=== PATIENT | female | born 1930 | race Caucasian/White ===

== ENCOUNTER → 2017-02-02 | Outpatient (CLI) | payer MEDICARE, BC ==
[~2017-02-02] MED LIST: ATOR20TA38 PO; BUS5 GTB; CARV3.1260 GTB; FURO20TA3 PO; GABA100C GTB; LANT3I SC; LISI2.5T59 PO; MEMA5TAB PO; MIRT7.5T8 GTB; MULT9LIQ4 GTB; NOV SC; QUET100T32 PO; SYN75 GTB; VENL75CA89 GTB
--- NOTE | 2017-02-03 10:27 | RADRPT ---
PROCEDURE: CT brain without contrast CLINICAL INDICATION: Head trauma/headaches TECHNIQUE: CT of the brain without contrast performed on a multidetector CT scanner, with multiplan ar reformats. One or more of the following dose reduction techniques were used: Automated exposure control, adjustment in mA and / or kV according to patient size, use of iterative reconstructive karis hnique. CTDIvol = 44 mGy; DLP = 630 mGy-cm. COMPARISON: 03/26/2016 FINDINGS: No acute intracranial hemorrhage is identified. No extra-axial fluid collection is seen. There is no mass effect. No midline shift is identified. Ventricles and sulci are mild to moderately enlarged compatible with volume loss. A chronic lacunar infarct is identified in the deep left frontal region. There are mild areas of hy podensity in the periventricular - deep white matter which are nonspecific but suggestive of chronic small vessel ischemic changes. Velasquez-white differentiation is preserved. Atherosclerotic calcifications of the intracranial internal carotid arteries are noted. Calvarium and skull base are unremarkable. Noted is right periorbital soft tissue swelling. Visual ized right maxillary sinus is opacified. IMPRESSION: 1. No evidence of acute intracranial pathology. 2. Mild to moderate volume loss, with mild chronic small vessel ischemic changes. 3. Chronic left frontal lacunar infarct. 4. Right periorbital soft tissue swelling and right maxillary sinus opacification. See separate orb it and sinus CTs for further details. RPTAT: AA .Cam Mayorga MD, MD Date Time Electronically viewed and signed by .Cam Mayorga MD, MD on 02/03/2017 10:26 .O/
--- NOTE | 2017-02-03 10:30 | RADRPT ---
PROCEDURE: CT orbits without contrast CLINICAL INDICATION: Head trauma, headaches, periorbital swelling TECHNIQUE: CT of the orbits without contrast was performed on a multidetector CT scanner, with mult iplanar reformats. One or more of the following dose reduction techniques were used: Automated expo sure control, adjustment in mA and / or kV according to patient size, use of iterative reconstructiv e technique. CTDIvol = 29 mGy and DLP = 236 mGy-cm. COMPARISON: None available. FINDINGS: There is right periorbital soft tissue swelling. No underlying fracture or injury of the orbital st ructures is identified. There is no retrobulbar hemorrhage. Globes are symmetric with intraocular replacement lenses noted. The remainder of the orbital structures are unremarkable bilaterally. Vi sualized osseous structures are intact. A large right maxillary sinus mucous retention cyst and mil d bilateral ethmoid air cell mucosal thickening are seen. IMPRESSION: 1. Right periorbital soft tissue swelling, without underlying fracture or orbital injury identified . 2. Paranasal sinus disease. See separate sinus CT report for further details. RPTAT: AA .Cam Mayorga MD, MD Date Time Electronically viewed and signed by .Cam Mayorga MD, on 02/03/2017 10:29 .O/
--- NOTE | 2017-02-03 10:36 | RADRPT ---
PROCEDURE: CT sinuses without contrast CLINICAL INDICATION: Head trauma, headaches TECHNIQUE: CT of the paranasal sinuses without contrast was performed on a multidetector CT scanner , with multiplanar reformats. One or more of the following dose reduction techniques were used: Aut omated exposure control, adjustment in mA and / or kV according to patient size, use of iterative re constructive technique. CTDIvol = 23 mGy and DLP = 310 mGy-cm. COMPARISON: None available. FINDINGS: There is a large right maxillary sinus mucous retention cyst. There are mild areas of mucosal thick ening in the left maxillary sinus. There is mild mucosal thickening in the bilateral ethmoid air ce lls primarily anteriorly. The rest of the paranasal sinuses are clear. No paranasal sinus air-flui d level is identified. Ostiomeatal complexes, frontal recesses and sphenoethmoidal recesses appear patent. There is mild leftward nasal septal deviation. Nasal cavity is clear. Noted is partial pa radoxical curvature of the middle turbinates. No dehiscence is identified. Right cribriform plate and ethmoid roof are noted to be lower on the right. Bilateral agger nasi cells are seen. Again de monstrated is right periorbital soft tissue swelling. IMPRESSION: 1. Large right maxillary sinus mucous retention cyst, mild left maxillary sinus mucosal thickening and mild bilateral ethmoid air cell mucosal thickening. 2. Patent ostiomeatal complexes. 3. Mild leftward nasal septal deviation. 4. Right periorbital soft tissue swelling. See separate orbit CT for further details. RPTAT: AA .Cam Mayorga MD, MD Date Time Electronically viewed and signed by .Cam Mayorga MD, MD on 02/03/2017 10:35 .O/
== END | disposition home or self-care (01) ==
LOC: C/S 17:33
PROVIDERS: ATTEND Internal Medicine
DX: S09.90XA Unspecified injury of head, initial encounter (principal); X58.XXXA Exposure to other specified factors, initial encounter; R51 Headache
CPT/HCPCS: 70450; 70480; 70486

== ENCOUNTER 2017-04-08 20:48 | Inpatient (IN) | payer MEDICARE, BC ==
[~2017-04-08] VITALS: Ht 160 cm; Wt 77.1 kg
--- NOTE | 2017-04-08 21:23 | ERA ---
ER Documentation Chief Complaint Date/Time DATE: 04/08/17 TIME: 21:22 Chief Complaint biba from home due to weakness/lethargy just finished atb for uti HPI History is limited due to the patient's cognitive impairment and is provided primarily from her daughter. 86-year-old female with a history of dementia, diabetes mellitus type 2, congestive heart failure, dysphagia with G-tube in place, anxiety, depression, recurrent urinary tract infections and dehydration presents to the emergency department via rescue ambulance for evaluation of weakness. Patient was treated with oral antibiotics 1 week ago for urinary tract infection by her PMD , Dr. Handy. Daughter reports a 1 day history of increasing lethargy and generalized weakness. Patient denies chest pain, shortness of breath or palpitations. No abdominal pain, nausea or vomiting. No dysuria, hematuria or flank pain. No fevers or chills. ROS All systems reviewed and are negative except as per history of present illness. Medications Home Meds Reported Medications Atorvastatin Calcium* (Atorvastatin Calcium*) 20 Mg Tablet, 20 MG PO QHS, #30 TAB 07/19/16 Quetiapine Fumarate* (Quetiapine Fumarate*) 100 Mg Tablet, 100 MG PO HS, TAB 07/19/16 Lisinopril* (Lisinopril*) 2.5 Mg Tablet, 2.5 MG PO DAILY, #30 TAB 07/19/16 Furosemide* (Furosemide*) 20 Mg Tablet, 20 MG PO DAILY, #60 TAB 07/19/16 Memantine* (Namenda*) Unknown Strength Tablet, PO DAILY, #30 TAB 03/26/16 Mirtazapine* (Mirtazapine*) 7.5 Mg Tablet, 7.5 MG GTB BID, TAB 03/26/16 Insulin Glargine* (Lantus*) 100 Unit/Ml Soln, 6 UNITS SC QHS Y for ELEVATED GLUCOSE, #1 VIAL 03/26/16 Insulin Aspart* (Novolog Insulin Vial*) 100 U/Ml Vial, 0 SC SLIDING SCALE AC, VIAL 09/22/15 Carvedilol* (Carvedilol*) 3.125 Mg Tablet, 3.125 MG GTB BID, TAB 09/22/15 Buspirone Hcl* (Buspar*) 5 Mg Tab, 5 MG GTB BID, TAB 09/22/15 Multivit &Minerals/Ferrous Fum (MULTIVITAMIN LIQUID) 9 Mg/15 Ml Liquid, 30 ML GTB DAILY 06/13/15 Venlafaxine Hcl* (Venlafaxine Hcl ER*) 75 Mg Cap.er.24h, 75 MG GTB BID, CAP 06/13/15 Levothyroxine Sodium* (Synthroid*) 75 Mcg Tablet, 75 MCG GTB DAILY, TAB 05/01/15 Gabapentin* (Neurontin*) 100 Mg Capsule, 100 MG GTB TID, CAP 05/01/15 Allergies Allergies: Coded Allergies: No Known Drug Allergies (Verified Allergy, Mild, 07/19/16) PMhx/Soc Reviewed in chart. As per HPI Anesthesia Reaction: No (UNKNOWN) Hx Neurological Disorder: No (dementia) Hx Respiratory Disorders: No Hx Cardiac Disorders: Yes (CHF, HEART MURMUR) Hx Psychiatric Problems: Yes (DEPRESSION , ANXIETY) Hx Miscellaneous Medical Probl: No Hx Alcohol Use: Yes (SOCIAL) Hx Substance Use: No Hx Tobacco Use: Yes Smoking Status: Current every day smoker FmHx Reviewed in chart. Not relevant to presenting complaint Physical Exam Vitals Vital Signs Date Time Temp Pulse Resp B/P Pulse Ox O2 Delivery O2 Flow Rate FiO2 04/08/17 21:42 Nasal Cannula 04/08/17 20:53 98.0 89 20 122/62 96 Physical Exam Const: Alert, elderly Head: Atraumatic Eyes: Normal Conjunctiva ENT: Normal External Ears, Nose and Mouth. Neck: Full range of motion. No JVD. No meningismus. Resp: Breath sounds are equal and clear to auscultation bilaterally Cardio: Regular rate and rhythm, no murmurs Abd: Soft, non tender, non distended. Normal bowel sounds Skin: No petechiae or rashes Back: No midline or flank tenderness Ext: No cyanosis, or edema Neur: Awake and alert, confused. No facial droop. Moves all extremities with 5/5 strength. Psych: Does not appear anxious or depressed. Result Diagram: 04/08/17212904/08/172129 Results 24 hrs Laboratory Tests Test 04/08/17 21:30 White Blood Count 8.910^3/ul Red Blood Count 3.2710^6/ul Hemoglobin 10.3g/dl Hematocrit 30.4% Mean Corpuscular Volume 93.0fl Mean Corpuscular Hemoglobin 31.5pg Mean Corpuscular Hemoglobin Concent 33.9g/dl Red Cell Distribution Width 13.9% Platelet Count 37197^3/UL Mean Platelet Volume 11.6fl Neutrophils % 70.6% Lymphocytes % 18.3% Monocytes % 7.2% Eosinophils % 2.8% Basophils % 0.6% Nucleated Red Blood Cells % 0.0/100WBC Neutrophils # 6.310^3/ul Lymphocytes # 1.610^3/ul Monocytes # 0.610^3/ul Eosinophils # 0.310^3/ul Basophils # 0.110^3/ul Nucleated Red Blood Cells # 0.010^3/ul Urine Color YELLOW Urine Clarity SLIGHTLY CLOUDY Urine pH 5.0 Urine Specific [place] 1.018 Urine Ketones NEGATIVEmg/dL Urine Nitrite NEGATIVEmg/dL Urine Bilirubin NEGATIVEmg/dL Urine Urobilinogen NEGATIVEmg/dL Urine Leukocyte Esterase NEGATIVELeu/ul Urine Microscopic RBC 0/HPF Urine Microscopic WBC 0/HPF Urine Hemoglobin NEGATIVEmg/dL Urine Glucose 1+mg/dL Urine Total Protein 1+mg/dl Sodium Level 142mmol/L Potassium Level 4.1mmol/L Chloride Level 103mmol/L Carbon Dioxide Level 21mmol/L Anion Gap 22 Blood Urea Nitrogen 33mg/dl Creatinine 1.13mg/dl Glucose Level 289mg/dl Lactic Acid Level 2.8mmol/L Calcium Level 9.8mg/dl Total Bilirubin 0.0mg/dl Direct Bilirubin 0.00mg/dl Indirect Bilirubin 0.0mg/dl Aspartate Amino Transf (AST/SGOT) 21IU/L Alanine Aminotransferase (ALT/SGPT) 24IU/L Alkaline Phosphatase 104IU/L Troponin I < 0.012ng/ml Total Protein 8.0g/dl Albumin 4.5g/dl Globulin 3.50g/dl Albumin/Globulin Ratio 1.28 Current Medications Medications (Trade) Dose Ordered Sig/Marck Route PRN Reason Start Time Stop Time Status Last Admin Dose Admin Cefepime HCl (Maxipime 2gm/50 ml (Pmx)) 50 ml @ 100 mls/hr ONCE STAT IVPB 04/08/17 22:14 04/08/17 22:43 DC 04/08/17 22:28 EKG: TIME: 21:00. Sinus rhythm with CA interval of 218 ms consistent with first -degree AV block. Ventricular rate 93. Poor R-wave progression in V1 through V6. No acute ST segment elevation or depression. Left axis deviation. EP Interpretation: Abnormal EKG. IMAGING: PROCEDURE: XR Chest. CLINICAL INDICATION: Sepsis TECHNIQUE: Anterior chest x-ray. COMPARISON: 07/23/2016 FINDINGS: The lung volumes are low. There is pulmonary vascular congestion. There is consolidation in the left lung base with obscured left hemidiaphragm, increased from previous exam.. The right lung is clear. No pleural effusion identified. There is no evidence of pneumothorax. The heart size is large. There is atherosclerotic calcification of the aorta. The cardiomediastinal silhouette is otherwise unremarkable. The soft tissues are normal. Osseous structures are unremarkable. IMPRESSION: 1. Retrocardiac atelectasis versus infiltrate, increased from previous exam. Given the chronic nature of this finding, CT chest is suggested to exclude underlying mass. 2. Cardiomegaly. 3. Atherosclerotic calcification of the aorta. 4. Pulmonary vascular congestion, new compared to previous exam. RPTAT: HLDM .Rob Pruett MD, MD Date Time Electronically viewed and signed by .Rob Pruett MD, MD on 04/08/2017 22: 43 .M/ Procedures/MDM DOCUMENTS REVIEWED: ED nurse, prior ED, prior MEDICAL DECISION MAKIN-year-old female with a history of dementia, diabetes mellitus type 2, congestive heart failure, dysphagia with G-tube in place, anxiety, depression, recurrent urinary tract infections and dehydration presents to the emergency department via rescue ambulance for evaluation of weakness. Mild diabetic hyperglycemia without evidence of DKA. Worsening renal function with chest x-ray findings of pulmonary vascular congestion. Left lower lobe atelectasis versus infiltrate which was present 07/2016. Possible recurrent pneumonia versus mass a CT will be necessary to further elucidate this process but is not emergent. Urinalysis unremarkable but patient has already been on antibiotics. Antibiotics given pending cultures. No criteria for systemic inflammatory response syndrome. Mildly elevated lactate of uncertain clinical significance. No headache, focal neurologic deficit or indication for neuroimaging. Thyroid function tests will be ordered. Admit to [facility] for further evaluation and management. Counseled patient and family regarding diagnosis, diagnostic results and plan for admission. CALLS/CONSULTS: Time 22:35, Dr. Maryjo Diaz for Dr Handy, Recommends admission to [facility]. PATIENT CARE TRANSITIONED: Time: 23:05, Dr. Handy. Departure Diagnosis: Primary Impression: Generalized weakness Additional Impressions: Acute on chronic renal insufficiency Congestive heart failure Qualified Code: I50.9 - Congestive heart failure, unspecified congestive heart failure chronicity, unspecified congestive heart failure type Condition: Serious SARA ALEXANDRA MD Apr 08, 2017 21:23
[2017-04-08 21:41] LABS: ADD SCAN DIFF NO; BASOPHIL # 0.1 10^3/ul (0.0-0.1); BASOPHILS % 0.6 % (0.0-2.0); EOSINOPHILS # 0.3 10^3/ul (0.0-0.5); EOSINOPHILS % 2.8 % (0.0-7.0); HEMATOCRIT 30.4 % (37.0-47.0); HEMOGLOBIN 10.3 g/dl (12.0-16.0); LYMPHOCYTES # 1.6 10^3/ul (0.8-2.9); LYMPHOCYTES % 18.3 % (15.0-51.0); MEAN CORPUSCULAR HEMOGLOBIN 31.5 pg (29.0-33.0); MEAN CORPUSCULAR HGB CONC 33.9 g/dl (32.0-37.0); MEAN PLATELET VOLUME 11.6 fl (7.4-10.4); MONOCYTE # 0.6 10^3/ul (0.3-0.9); MONOCYTES % 7.2 % (0.0-11.0); NEUTROPHIL # 6.3 10^3/ul (1.6-7.5); NEUTROPHILS % 70.6 % (39.0-77.0); PLATELET COUNT 144 10^3/UL (140-415); RED BLOOD COUNT 3.27 10^6/ul (4.20-5.40); RED CELL DISTRIBUTION WIDTH 13.9 % (11.5-14.5); WHITE BLOOD COUNT 8.9 10^3/ul (4.8-10.8)
[2017-04-08 22:02] LABS: ALANINE AMINOTRANSFERASE 24 IU/L (13-69); ALBUMIN 4.5 g/dl (3.3-4.9); ALBUMIN/GLOBULIN RATIO 1.28; ALKALINE PHOSPHATASE 104 IU/L (42-121); ANION GAP 22 (8-16); ASPARTATE AMINO TRANSFERASE 21 IU/L (15-46); BLOOD UREA NITROGEN 33 mg/dl (7-20); CALCIUM 9.8 mg/dl (8.4-10.2); CARBON DIOXIDE 21 mmol/L (21-31); CHLORIDE 103 mmol/L (97-110); CREATININE 1.13 mg/dl (0.44-1.00); GLUCOSE 289 mg/dl (70-220); POTASSIUM 4.1 mmol/L (3.5-5.1); SODIUM 142 mmol/L (135-144)
[2017-04-08] MEDS ORDERED: CEFEPIME 2GM/50 ML (PMX) 50 ML IVPB STA (22:14)
[2017-04-08 22:16] LABS: TROPONIN-I < 0.012 ng/ml (0.00-0.12)
[2017-04-08 22:23] LABS: ADD UMIC YES; UR ASCORBIC ACID NEGATIVE (NEGATIVE); UR BILIRUBIN (Dip) NEGATIVE (NEGATIVE); UR BLOOD (Dip) NEGATIVE (NEGATIVE); UR CLARITY SLIGHTLY CLOUDY (CLEAR); UR COLOR YELLOW (YELLOW); UR GLUCOSE (Dip) 1+ mg/dL (NEGATIVE); UR KETONES (Dip) NEGATIVE (NEGATIVE); UR LEUKOCYTE ESTERASE (Dip) NEGATIVE Leu/ul (NEGATIVE); UR NITRITE (Dip) NEGATIVE (NEGATIVE); UR RBC 0 /HPF (0-5); UR SPECIFIC GRAVITY (Dip) 1.018 (1.003-1.030); UR TOTAL PROTEIN (Dip) 1+ mg/dl (NEGATIVE); UR UROBILINOGEN (Dip) NEGATIVE (NEGATIVE)
--- NOTE | 2017-04-08 22:43 | RADRPT ---
PROCEDURE: XR Chest. CLINICAL INDICATION: Sepsis TECHNIQUE: Anterior chest x-ray. COMPARISON: 07/23/2016 FINDINGS: The lung volumes are low. There is pulmonary vascular congestion. There is consolidation in the left lung base with obscured left hemidiaphragm, increased from previo us exam.. The right lung is clear. No pleural effusion identified. There is no evidence of pneumothorax. The heart size is large. There is atherosclerotic calcification of the aorta. The cardiomediastina l silhouette is otherwise unremarkable. The soft tissues are normal. Osseous structures are unremarkable. IMPRESSION: 1. Retrocardiac atelectasis versus infiltrate, increased from previous exam. Given the chronic natu re of this finding, CT chest is suggested to exclude underlying mass. 2. Cardiomegaly. 3. Atherosclerotic calcification of the aorta. 4. Pulmonary vascular congestion, new compared to previous exam. RPTAT: HLDM .Rob Pruett MD, MD Date Time Electronically viewed and signed by .Rob Pruett MD, on 04/08/2017 22:43 .M/
[2017-04-08] MEDS ORDERED: ACETAMINOPHEN 325 MG TAB PO PRN (23:30)
[2017-04-08] MEDS ORDERED: ONDANSETRON 4 MG INJ IV PRN (23:30)
[2017-04-09 02:30] VITALS: BP 126/60; RESP 18
[2017-04-09 02:43] VITALS: Ht 160 cm; Wt 77.1 kg
[2017-04-09] MEDS ORDERED: ACETAMINOPHEN 325 MG TAB PO PRN (04:00)
[2017-04-09] MEDS: SOD CHLORIDE 0.9% 1,000 ML IV SCH ×2 (04:40→23:00)
[2017-04-09] MEDS ORDERED: GLUCAGON 1 MG INJ IM PRN (05:00)
[2017-04-09] MEDS ORDERED: GLUCOSE GEL 15 GRAM TUBE PO PRN ×2 (05:00)
[2017-04-09] MEDS ORDERED: DEXTROSE 50% 50 ML SYRINGE IV PRN ×2 (05:00)
[2017-04-09] MEDS ORDERED: GLUCOSE GEL 15 GRAM TUBE BUCCAL PRN (05:00)
[2017-04-09] MEDS: INSULIN ASPART [NOVOLOG] 3 ML PEN SC SCH ×5 (05:36→21:58)
[2017-04-09] MEDS ORDERED: INSULIN ASPART [NOVOLOG] 3 ML PEN SC SCH (06:00)
[2017-04-09 06:49] LABS: BASOPHILS % 0.3 % (0.0-2.0); EOSINOPHILS # 0.2 10^3/ul (0.0-0.5); EOSINOPHILS % 3.2 % (0.0-7.0); HEMATOCRIT 27.4 % (37.0-47.0); LYMPHOCYTES # 1.7 10^3/ul (0.8-2.9); LYMPHOCYTES % 22.1 % (15.0-51.0); MEAN CORPUSCULAR HEMOGLOBIN 30.6 pg (29.0-33.0); MEAN CORPUSCULAR HGB CONC 32.8 g/dl (32.0-37.0); MEAN CORPUSCULAR VOLUME 93.2 fl (82.0-101.0); MEAN PLATELET VOLUME 11.6 fl (7.4-10.4); MONOCYTE # 0.6 10^3/ul (0.3-0.9); NEUTROPHIL # 4.9 10^3/ul (1.6-7.5); NEUTROPHILS % 66.1 % (39.0-77.0); PLATELET COUNT 132 10^3/UL (140-415); RED BLOOD COUNT 2.94 10^6/ul (4.20-5.40); RED CELL DISTRIBUTION WIDTH 13.9 % (11.5-14.5); WHITE BLOOD COUNT 7.5 10^3/ul (4.8-10.8)
[2017-04-09 07:08] LABS: ALBUMIN 3.9 g/dl (3.3-4.9); ALBUMIN/GLOBULIN RATIO 1.25; BILIRUBIN,INDIRECT 0.1 mg/dl (0-1.1); BILIRUBIN,TOTAL 0.1 mg/dl (0.2-1.3); CALCIUM 9.3 mg/dl (8.4-10.2); CREATININE 1.02 mg/dl (0.44-1.00); MAGNESIUM 1.9 mg/dl (1.7-2.5); PHOSPHORUS 3.6 mg/dl (2.5-4.9); POTASSIUM 3.7 mmol/L (3.5-5.1)
[2017-04-09 07:20] LABS: TROPONIN-I 0.013 ng/ml (0.00-0.12)
[2017-04-09 07:38] LABS: THYROID STIMULATING HORMONE 1.62 MIU/L (0.465-4.680)
[2017-04-09 07:40] VITALS: BP 138/62; RESP 18
[2017-04-09 10:27] VITALS: BP 153/68; RESP 18
[2017-04-09] MEDS: LEVOTHYROXINE 75 MCG TAB GTB SCH (10:38)
[2017-04-09] MEDS: FAMOTIDINE 20 MG TAB GTB SCH (10:39)
[2017-04-09] MEDS: MEMANTINE 10 MG TAB PO SCH (10:39)
[2017-04-09] MEDS: BUSPIRONE 5 MG TAB GTB SCH ×2 (10:40→21:52)
[2017-04-09] MEDS: LISINOPRIL 5 MG TAB PO SCH (10:40)
--- NOTE | 2017-04-09 14:25 | HP ---
Date/Time of Note Date/Time of Note DATE: 04/09/17 TIME: 14:08 Assessment/Plan VTE Prophylaxis VTE Prophylaxis Intervention: SCD's Lines/Catheters IV [facility]ter [facility]from [facility]): Saline Lock Urinary Cath still in place: No Reason Cath still needed: urinary retention Assessment/Plan Chief Complaint/Hosp Course Impression: 1. this patient was admitted through the emergency room after she presented with generalized weakness and increasing lethargy. The patient is demented and unable to give any history. I did speak with the patient's managed care nurse and with the patient's daughter. The patient also had some abdominal pain. The patient has a history of recurrent urinary tract infections and just finished a course of antibiotic, Macrobid, for an E. coli urinary tract infection that was found on a urine culture on 03/23/2017. The managed care nurse says her urine continues to smell. The patient in the emergency room had an elevated BUN of 33 and she was presumed to be dehydrated.. She also had an elevated lactic acid level of 2.8. The clinical significance of the elevated lactic acid level is questionable. The patient was admitted for IV fluids. 2. Type 2 diabetes mellitus. The patient's blood sugar on admission was 289. 3. Dementia 4. Recurrent urinary tract infections 5. History of dysphasia with a permanent gastric feeding tube in place 6. History of anxiety depression 7. Neurogenic bladder. 8. Chronic anemia Plan: 1. 200 and out catheterization for residual urine volume, urine culture, and routine urinalysis. 2. Adjust sliding scale insulin. Resume Lantus insulin at night. 3. GI consultation to change feeding tube. 4. Check labs in the morning. 5. Resume some routine medications. Hold diuretics at this time Problems: HPI/ROS Admit Date/Time Admit Date/Time Apr 09, 2017 at 02:20 Hx of Present Illness This 86-year-old female was brought in by paramedics to the emergency room yesterday because of generalized weakness and increasing lethargy. The patient has a history of dementia and is unable to give an accurate history. The patient is Tuvaluan-speaking only. There is a managed care nurse in the room with the patient. She is Tuvaluan-speaking. Through a multiple resaw operator I was able to communicate with the managed care nurse. I also spoke to the patient's daughter. The patient is well known to me. The patient has recurrent urinary tract infections and last had a culture done as an outpatient by the visiting nurses and she was found to have greater than 100,000 of E. coli sensitive to Macrodantin. Patient was started on Macrobid 100 mg twice a day and then was supposed to be on 50 mg once a day as this depression for recurrent infections. The patient was on the initial antibiotic treatment I am not sure if she was getting 50 mg a day thereafter. The patient at this time denies any pain. She has not had any chest pain shortness of breath. The patient is mostly bed ridden or in a wheelchair. She does have a gastric feeding tube in place; however, it is not being used much as the patient is able to swallow. The daughter tells me they use it to give her water because she does not drink enough water. ROS Constitutional: no complaints Eyes: no complaints Respiratory: no complaints Cardiovascular: no complaints Gastrointestinal: no complaints Genitourinary: no complaints Musculoskeletal: no complaints Neurologic: confusion Psychological: confusion, depression PMH/Family/Social Past Medical History Medical History: congestive heart failure, diabetes, hypertension, urinary tract infection Past Surgical History Past Surgical Hx: cholecystectomy, endoscopy, other Family History Significant Family History: no pertinent family hx Social History Alcohol Use: none Smoking Status: Unknown if ever smoked Drug Use: none Exam/Review of Systems Vital Signs Vitals Vital Signs Date Time Temp Pulse Resp B/P Pulse Ox O2 Delivery O2 Flow Rate FiO2 04/09/17 10:27 98.5 93 18 153/68 94 04/09/17 02:43 Room Air Intake and Output 04/08/17 04/08/17 04/09/17 15:00 23:00 07:00 Intake Total 20 ml Balance 20 ml Exam Exam She does have a gastric tube in place. The gastric tube is black. Constitutional: alert Psych: confusion Respiratory: clear to auscultation, normal air movement Cardiovascular: regular rate and rhythm Gastrointestinal: soft Labs Result Diagram: 04/09/1709 04/09/17 06 Medications Medications Current Medications Atorvastatin Calcium (Lipitor) 20 mg QHS PO ; Start 04/09/17 at 21:00 Buspirone HCl (Buspar) 5 mg BID GTB Last administered on 04/09/17t 10:40; Admin Dose 5 MG; Start 04/09/17 at 09:00 Carvedilol (Coreg) 3.125 mg BID GTB Last administered on 04/09/17 10:39; Admin Dose 3.125 MG; Start 04/09/17 at 09:00 Lisinopril (Zestril) 2.5 mg DAILY PO Last administered on 04/09/17 10:40; Admin Dose 2.5 MG; Start 04/09/17 at 09:00 Mirtazapine (Remeron) 7.5 mg HS GTB ; Start 04/09/17 at 21:00 Quetiapine Fumarate (Seroquel) 100 mg HS PO ; Start 04/09/17 at 21:00 Memantine (Namenda) 10 mg DAILY PO Last administered on 04/09/17 10:39; Admin Dose 10 MG; Start 04/09/17 at 09:00 Ondansetron HCl (Zofran Inj) 4 mg Q6H PRN IV NAUSEA AND/OR VOMITING; Start 04/09 at 04:00 Acetaminophen (Tylenol Tab) 650 mg Q4H PRN PO PAIN AND OR ELEVATED TEMP; Start 04/09/17 at 04:00 Famotidine 20 mg 20 mg AM GTB Last administered on 04/09/17 10:39; Admin Dose 20 MG; Start 04/09/17 at 09:00 Sodium Chloride (NS) 1,000 ml @ 50 mls/hr Q20H IV Last administered on 04:40; Admin Dose 50 MLS/HR; Start 04/09/17 at 04:00 Miscellaneous Information 1 ea NOTE XX ; Start 04/09/17 at 05:00 Glucose (Glutose) 15 gm Q15M PRN PO DECREASED GLUCOSE; Start 04/09/17 at 05:00 Glucose (Glutose) 22.5 gm Q15M PRN PO DECREASED GLUCOSE; Start 04/09/17 at 05:00 Dextrose (D50w Syringe) 25 ml Q15M PRN IV DECREASED GLUCOSE; Start 04/09/17 at 05:00 Dextrose (D50w Syringe) 50 ml Q15M PRN IV DECREASED GLUCOSE; Start 04/09/17 at 05:00 Glucagon (Glucagen) 1 mg Q15M PRN IM DECREASED GLUCOSE; Start 04/09/17 at 05:00 Glucose (Glutose) 15 gm Q15M PRN BUCCAL DECREASED GLUCOSE; Start 04/09/17 at 05: 00 Diagnostic Test (Pha) (Accu-Chek) 1 ea 02 XX ; Start 04/10/17 at 02:00 SALUD GARCIA MD Apr 09, 2017 14:25
[2017-04-09 16:06] LABS: ADD UMIC NO; UR ASCORBIC ACID NEGATIVE (NEGATIVE); UR BILIRUBIN (Dip) NEGATIVE (NEGATIVE); UR BLOOD (Dip) NEGATIVE (NEGATIVE); UR CLARITY CLEAR (CLEAR); UR COLOR YELLOW (YELLOW); UR GLUCOSE (Dip) 1+ mg/dL (NEGATIVE); UR KETONES (Dip) NEGATIVE (NEGATIVE); UR LEUKOCYTE ESTERASE (Dip) NEGATIVE Leu/ul (NEGATIVE); UR NITRITE (Dip) NEGATIVE (NEGATIVE); UR SPECIFIC GRAVITY (Dip) 1.016 (1.003-1.030); UR TOTAL PROTEIN (Dip) NEGATIVE (NEGATIVE); UR UROBILINOGEN (Dip) NEGATIVE (NEGATIVE)
[2017-04-09 19:33] VITALS: BP 166/79; RESP 18
[2017-04-09 21:49] VITALS: BP 124/88; PULSE 90
[2017-04-09] MEDS: QUETIAPINE 100 MG TAB PO SCH (21:51)
[2017-04-09] MEDS: ATORVASTATIN 20 MG TAB PO SCH (21:52)
[2017-04-09] MEDS: MIRTAZAPINE 15 MG TAB GTB SCH (21:52)
[2017-04-09] MEDS: INSULIN GLARGINE [LANtus] 3 ML PEN SC SCH (21:58)
--- NOTE | 2017-04-09 23:05 | RADRPT ---
Echocardiogram Report Patient Name: PRADEEP BOYD Gender: Female Date: 1930 Study Date: 09-Apr-2017 Hydraulic Lift Operator: Ayaz [facility] Location: 622 Ref. Physician: JETHRO DIAZ Quality: Adequate Procedures: Transthoracic echocardiogram with complete 2D, M-Mode, and doppler examination. Indications: Per MD orders. 2D/M Mode Doppler Measurement Value Normal Ranges Measurement Value Normal Ranges LVIDd 2D 3.7 3.5 - 5.6 cm ROBERT Vmax 0.9 cm2 LVIDs 2D 2.6 2.1 - 4.1 cm ROBERT VTI 0.9 cm2 FS 2D 29.8 % AV Mean Mor 1.7 m/sec LVPWd 2D 1.0 0.6 - 1.1 cm AV Mean PG 13.0 mmHg IVSd 2D 1.1 0.6 - 1.1 cm AV Peak Mor 2.3 m/sec IVS/LVPW 2D 1.1 AV Peak PG 21.0 mmHg AoR Diam 2D 2.6 2.0 - 3.7 cm AV VTI 47.9 cm LA/Ao 2D 1 0 - 1 AI Peak PG 52.0 mmHg EDV 2D 51.9 cm3 AI Peak Mor 3.6 m/sec ESV 2D 18.0 cm3 AI PHT 433.0 msec LA Dimen 2D 3.2 2.3 - 4.0 cm LVOT Mean Mor 0.6 m/sec LVOT Diam 1.8 cm LVOT Mean PG 2.0 mmHg LVOT Area 2.5 cm2 LVOT Peak Mor 0.8 m/sec LVOT Peak PG 2.0 mmHg LVOT VTI 16.4 cm MV E Peak Mor 0.8 m/sec MV A Peak Mor 1.4 m/sec MV E/A 0.6 MV Decel Time 158 msec MV E/A 0.6 TR Peak Mor 2.6 m/sec TR Peak PG 26.0 mmHg RVSP 29.0 mmHg Findings Left Ventricle: Normal left ventricular systolic function. Normal left ventricular cavity size. Normal left ventricular wall thickness. Ejection fraction is visually estimated at 55 %. Tissue Doppler/Mitral Doppler indices are consistent with impaired relaxation (Stage I diastolic dysfunction). Right Ventricle: Normal right ventricular size. Normal right ventricular systolic function. Left Atrium: The left atrium is normal in size. Right Atrium: The right atrium is normal in size. Mitral Valve: Mitral valve leaflets appear mildly thickened. Mild mitral annular calcification. Trace mitral regurgitation. Aortic Valve: Mild aortic stenosis. Aortic cusps appear moderately calcified. Trileaflet aortic valve. Mild aortic valve regurgitation. Tricuspid Valve: Normal appearance of the tricuspid valve. Normal right ventricular systolic pressure. Estimated peak PA systolic pressure 29 mmHg. There is mild tricuspid regurgitation. Pulmonic Valve: Pulmonic valve not well visualized. There is trace pulmonic regurgitation. Pericardium: Normal pericardium with no significant pericardial effusion. Aorta: Normal aortic root. IVC: Normal size and normal respiratory collapse consistent with normal right atrial pressure. Conclusions Normal left ventricular systolic function. Normal left ventricular cavity size. Normal left ventricular wall thickness. Ejection fraction is visually estimated at 55 %. Tissue Doppler/Mitral Doppler indices are consistent with impaired relaxation (Stage I diastolic dysfunction). Normal right ventricular size. Normal right ventricular systolic function. Mild aortic stenosis. Aortic cusps appear moderately calcified. Trileaflet aortic valve. Mild aortic valve regurgitation. Normal appearance of the tricuspid valve. Normal right ventricular systolic pressure. Estimated peak PA systolic pressure 29 mmHg. There is mild tricuspid regurgitation. Normal size and normal respiratory collapse consistent with normal right atrial pressure. No Vegetation, masses, or thrombi seen. Electronically Signed By: Kash Chan 09-Apr-2017 23:04:32 -0700 Patient Name: PRADEEP BOYD Study Date: 09-Apr-2017 [id number]
[2017-04-10] MEDS ORDERED: ACCU-CHEK XX SCH (02:00)
[2017-04-10] MEDS: ACCU-CHEK XX SCH (02:21)
[2017-04-10 05:43] LABS: ADD SCAN DIFF NO
[2017-04-10 05:47] LABS: BASOPHILS % 0.6 % (0.0-2.0); EOSINOPHILS # 0.2 10^3/ul (0.0-0.5); EOSINOPHILS % 2.6 % (0.0-7.0); HEMOGLOBIN 9.9 g/dl (12.0-16.0); LYMPHOCYTES # 1.3 10^3/ul (0.8-2.9); LYMPHOCYTES % 18.6 % (15.0-51.0); MEAN CORPUSCULAR HEMOGLOBIN 30.2 pg (29.0-33.0); MEAN CORPUSCULAR VOLUME 91.5 fl (82.0-101.0); MEAN PLATELET VOLUME 11.1 fl (7.4-10.4); MONOCYTE # 0.5 10^3/ul (0.3-0.9); MONOCYTES % 7.7 % (0.0-11.0); NEUTROPHIL # 4.9 10^3/ul (1.6-7.5); NEUTROPHILS % 70.1 % (39.0-77.0); PLATELET COUNT 148 10^3/UL (140-415); RED BLOOD COUNT 3.28 10^6/ul (4.20-5.40); RED CELL DISTRIBUTION WIDTH 13.7 % (11.5-14.5)
[2017-04-10 06:12] LABS: ALBUMIN 4.1 g/dl (3.3-4.9); ALBUMIN/GLOBULIN RATIO 1.28; BILIRUBIN,INDIRECT 0.2 mg/dl (0-1.1); BILIRUBIN,TOTAL 0.2 mg/dl (0.2-1.3); CALCIUM 9.2 mg/dl (8.4-10.2); CREATININE 0.85 mg/dl (0.44-1.00); POTASSIUM 3.9 mmol/L (3.5-5.1); TOTAL PROTEIN 7.3 g/dl (6.1-8.1)
[2017-04-10] MEDS: ONDANSETRON 4 MG INJ IV PRN ×2 (06:13→20:23)
[2017-04-10] MEDS: INSULIN ASPART [NOVOLOG] 3 ML PEN SC SCH ×4 (07:47→21:25)
[2017-04-10 07:52] VITALS: BP 179/83; RESP 18
[2017-04-10] MEDS: FAMOTIDINE 20 MG TAB GTB SCH (08:23)
[2017-04-10] MEDS: BUSPIRONE 5 MG TAB GTB SCH ×2 (08:23→22:22)
[2017-04-10] MEDS: MEMANTINE 10 MG TAB PO SCH (08:23)
[2017-04-10] MEDS: LISINOPRIL 5 MG TAB PO SCH (08:23)
[2017-04-10] MEDS: LEVOTHYROXINE 75 MCG TAB GTB SCH (08:23)
[2017-04-10 08:30] VITALS: BP 145/65
--- NOTE | 2017-04-10 12:15 | PN ---
Date/Time of Note Date/Time of Note DATE: 04/10/17 TIME: 12:14 Assessment/Plan VTE Prophylaxis VTE Prophylaxis Intervention: other Lines/Catheters IV C[facility]ter Type (from [facility] Peripheral IV Urinary Cath still in place: No Assessment/Plan Assessment/Plan 1. Dehydration resolving with iv fluids 2. Dementia, stable 3. Anemia, stable Subjective 24 Hr Interval Summary Respiratory: No cough, No shortness of breath Cardiovascular: No chest pain Gastrointestinal: no complaints Exam/Review of Systems Vital Signs Vitals Vital Signs Date Time Temp Pulse Resp B/P Pulse Ox O2 Delivery O2 Flow Rate FiO2 04/10/17 07:52 98.5 83 18 179/83 99 04/09/17 21:49 Room Air Intake and Output 04/09/17 04/09/17 04/10/17 15:00 23:00 07:00 Intake Total 1140 ml 530 ml Balance 1140 ml 530 ml Exam Neck: No jvd Respiratory: clear to auscultation Cardiovascular: regular rate and rhythm Gastrointestinal: soft Extremities: No edema, No tenderness Results Result Diagram: 04/10/17 0530 04/10/17 0530 Results 24 hrs Laboratory Tests Test 04/09/17 12:44 04/09/17 15:40 04/09/17 17:36 04/09/17 21:53 Bedside Glucose 207 203 216 Urine Color YELLOW Urine Clarity CLEAR Urine pH 5.0 Urine Specific [place] 1.016 Urine Ketones NEGATIVE Urine Nitrite NEGATIVE Urine Bilirubin NEGATIVE Urine Urobilinogen NEGATIVE Urine Leukocyte Esterase NEGATIVE Urine Hemoglobin NEGATIVE Urine Glucose 1+ H Urine Total Protein NEGATIVE Test 04/10/17 02:21 04/10/17 05:30 04/10/17 07:41 04/10/17 11:59 Bedside Glucose 240 H 259 H 183 White Blood Count 7.0 Red Blood Count 3.28 L Hemoglobin 9.9 L Hematocrit 30.0 L Mean Corpuscular Volume 91.5 Mean Corpuscular Hemoglobin 30.2 Mean Corpuscular Hemoglobin Concent 33.0 Red Cell Distribution Width 13.7 Platelet Count 148 Mean Platelet Volume 11.1 H Neutrophils % 70.1 Lymphocytes % 18.6 Monocytes % 7.7 Eosinophils % 2.6 Basophils % 0.6 Nucleated Red Blood Cells % 0.0 Neutrophils # 4.9 Lymphocytes # 1.3 Monocytes # 0.5 Eosinophils # 0.2 Basophils # 0.0 Nucleated Red Blood Cells # 0.0 Sodium Level 142 Potassium Level 3.9 Chloride Level 106 Carbon Dioxide Level 22 Anion Gap 18 H Blood Urea Nitrogen 20 # Creatinine 0.85 Glucose Level 215 Calcium Level 9.2 Total Bilirubin 0.2 Direct Bilirubin 0.00 Indirect Bilirubin 0.2 Aspartate Amino Transf (AST/SGOT) 21 Alanine Aminotransferase (ALT/SGPT) 28 Alkaline Phosphatase 93 Total Protein 7.3 Albumin 4.1 Globulin 3.20 Albumin/Globulin Ratio 1.28 Medications Medications Current Medications Atorvastatin Calcium (Lipitor) 20 mg QHS PO Last administered on 04/09/17 21:52 ; Admin Dose 20 MG; Start 04/09/17 at 21:00 Buspirone HCl (Buspar) 5 mg BID GTB Last administered on 04/10/17 08:23; Admin Dose 5 MG; Start 04/09/17 at 09:00 Carvedilol (Coreg) 3.125 mg BID GTB Last administered on 04/10/17 08:23; Admin Dose 3.125 MG; Start 04/09/17 at 09:00 Lisinopril (Zestril) 2.5 mg DAILY PO Last administered on 04/10/17 08:23; Admin Dose 2.5 MG; Start 04/09/17 at 09:00 Mirtazapine (Remeron) 7.5 mg HS GTB Last administered on 04/09/17 21:52; Admin Dose 7.5 MG; Start 04/09/17 at 21:00 Quetiapine Fumarate (Seroquel) 100 mg HS PO Last administered on 04/09/17 21:51 ; Admin Dose 100 MG; Start 04/09/17 at 21:00 Memantine (Namenda) 10 mg DAILY PO Last administered on 04/10/17 08:23; Admin Dose 10 MG; Start 04/09/17 at 09:00 Ondansetron HCl (Zofran Inj) 4 mg Q6H PRN IV NAUSEA AND/OR VOMITING Last administered on 04/10/17 06:13; Admin Dose 4 MG; Start 04/09/17 at 04:00 Acetaminophen (Tylenol Tab) 650 mg Q4H PRN PO PAIN AND OR ELEVATED TEMP Last administered on 04/09/17 17:52; Admin Dose 650 MG; Start 7/3/17 at 04:00 Famotidine 20 mg 20 mg AM GTB Last administered on 04/10/17 08:23; Admin Dose 20 MG; Start 04/09/17 at 09:00 Sodium Chloride (NS) 1,000 ml @ 50 mls/hr Q20H IV Last administered on 23:00; Admin Dose 50 MLS/HR; Start 04/09/17 at 04:00 Miscellaneous Information 1 ea NOTE XX ; Start 04/09/17 at 05:00 Glucose (Glutose) 15 gm Q15M PRN PO DECREASED GLUCOSE; Start 04/09/17 at 05:00 Glucose (Glutose) 22.5 gm Q15M PRN PO DECREASED GLUCOSE; Start 04/09/17 at 05:00 Dextrose (D50w Syringe) 25 ml Q15M PRN IV DECREASED GLUCOSE; Start 04/09/17 at 05:00 Dextrose (D50w Syringe) 50 ml Q15M PRN IV DECREASED GLUCOSE; Start 04/09/17 at 05:00 Glucagon (Glucagen) 1 mg Q15M PRN IM DECREASED GLUCOSE; Start 04/09/17 at 05:00 Glucose (Glutose) 15 gm Q15M PRN BUCCAL DECREASED GLUCOSE; Start 04/09/17 at 05: 00 Diagnostic Test (Pha) (Accu-Chek) 1 ea 02 XX Last administered on 04/10/17 02: 21; Admin Dose 1 EA; Start 04/10/17 at 02:00 Insulin Glargine (Lantus) 8 unit DAILY@20 SC Last administered on 04/09/17 21: 58; Admin Dose 8 UNIT; Start 04/09/17 at 20:00 BARTOLO BRO MD Apr 10, 2017 12:15
[2017-04-10] MEDS: SOD CHLORIDE 0.9% 1,000 ML IV SCH ×2 (18:03→20:00)
[2017-04-10 20:00] VITALS: BP 181/76; RESP 18
[2017-04-10] MEDS: INSULIN GLARGINE [LANtus] 3 ML PEN SC SCH (21:24)
[2017-04-10] MEDS ORDERED: CLONIDINE 0.1 MG/24 HR PATCH TRANSDERM SCH (22:00)
[2017-04-10] MEDS: ATORVASTATIN 20 MG TAB PO SCH (22:22)
[2017-04-10] MEDS: MIRTAZAPINE 15 MG TAB GTB SCH (22:23)
[2017-04-10] MEDS: QUETIAPINE 100 MG TAB PO SCH (22:23)
[2017-04-10 22:29] VITALS: BP 188/80; PULSE 85
[2017-04-10 23:00] VITALS: BP 175/80; PULSE 85
[2017-04-11] VITALS (7 sets, daily range): BP systolic 88–185; BP diastolic 49–91; PULSE 84; RESP 16–18
[2017-04-11] MEDS: ACCU-CHEK XX SCH (02:44)
[2017-04-11 06:07] LABS: ADD SCAN DIFF NO
[2017-04-11 06:16] LABS: BASOPHILS % 0.5 % (0.0-2.0); EOSINOPHILS # 0.2 10^3/ul (0.0-0.5); EOSINOPHILS % 2.5 % (0.0-7.0); HEMATOCRIT 32.5 % (37.0-47.0); HEMOGLOBIN 10.7 g/dl (12.0-16.0); LYMPHOCYTES # 2.3 10^3/ul (0.8-2.9); LYMPHOCYTES % 29.3 % (15.0-51.0); MEAN CORPUSCULAR HEMOGLOBIN 30.1 pg (29.0-33.0); MEAN CORPUSCULAR HGB CONC 32.9 g/dl (32.0-37.0); MEAN CORPUSCULAR VOLUME 91.5 fl (82.0-101.0); MEAN PLATELET VOLUME 11.1 fl (7.4-10.4); MONOCYTE # 0.6 10^3/ul (0.3-0.9); MONOCYTES % 7.7 % (0.0-11.0); NEUTROPHIL # 4.7 10^3/ul (1.6-7.5); NEUTROPHILS % 59.7 % (39.0-77.0); PLATELET COUNT 165 10^3/UL (140-415); RED BLOOD COUNT 3.55 10^6/ul (4.20-5.40); RED CELL DISTRIBUTION WIDTH 13.6 % (11.5-14.5); WHITE BLOOD COUNT 7.9 10^3/ul (4.8-10.8)
[2017-04-11 06:52] LABS: CALCIUM 9.3 mg/dl (8.4-10.2); CREATININE 0.84 mg/dl (0.44-1.00); PHOSPHORUS 3.6 mg/dl (2.5-4.9); POTASSIUM 3.7 mmol/L (3.5-5.1)
[2017-04-11] MEDS: INSULIN ASPART [NOVOLOG] 3 ML PEN SC SCH ×4 (07:48→21:00)
[2017-04-11] MEDS: LISINOPRIL 5 MG TAB PO SCH (08:29)
[2017-04-11] MEDS: LEVOTHYROXINE 75 MCG TAB GTB SCH (08:30)
[2017-04-11] MEDS: MEMANTINE 10 MG TAB PO SCH (08:30)
[2017-04-11] MEDS: FAMOTIDINE 20 MG TAB GTB SCH (08:30)
[2017-04-11] MEDS: BUSPIRONE 5 MG TAB GTB SCH ×2 (08:30→21:01)
--- NOTE | 2017-04-11 13:37 | PN ---
Date/Time of Note Date/Time of Note DATE: 04/11/17 TIME: 13:27 Assessment/Plan VTE Prophylaxis VTE Prophylaxis Intervention: SCD's Lines/Catheters IV C[facility]ter Type (from [facility]): Peripheral IV Urinary Cath still in place: No Assessment/Plan Chief Complaint/Hosp Course Impression: 1. this patient was admitted through the emergency room after she presented with generalized weakness and increasing lethargy. She seems overall better. Her renal function is improved. She is not eating. Her technical adjuster who was in the room with her says that she eats regular food at home. I think the patient does not like the restricted diet here. I will order a regular diet. 2. Type 2 diabetes mellitus. The blood sugar seems to be coming under control. 3. Dementia 4. Recurrent urinary tract infections . Her urine is now no growth. 5. 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 She is able to swallow without a problem. The family says they use the G-tube to give her water. I will have Hg eyelet punch operator change the G-tube. 6. History of anxiety depression 7. Neurogenic bladder. 8. Chronic anemia Plan: 1. Continue current management and medication. 2. Adjust sliding scale insulin. Increase Lantus insulin at night. 3. GI consultation to change feeding tube. 4. Check labs in the morning. 5. Resume some routine medications. I will DC IV fluids at this time. 6. I will change to a regular diet. Problems: Subjective 24 Hr Interval Summary Free Text/Dictation She is awake. Her technical adjuster says that she is not eating. She does not seem to like the food. At home the technical adjuster feeds her everything and she is able to swallow it. Constitutional: no complaints Eyes: no complaints ENT: no complaints Cardiovascular: no complaints Gastrointestinal: decreased appetite Musculoskeletal: no complaints Exam/Review of Systems Vital Signs Vitals Vital Signs Date Time Temp Pulse Resp B/P Pulse Ox O2 Delivery O2 Flow Rate FiO2 04/11/17 07:31 98.6 77 18 185/77 97 04/10/17 08:30 Room Air Intake and Output 04/10/17 04/10/17 04/11/17 15:00 23:00 07:00 Intake Total 1410 ml 770 ml Output Total 200 ml Balance 1210 ml 770 ml Exam Constitutional: alert Psych: confusion Respiratory: clear to auscultation, normal air movement Cardiovascular: regular rate and rhythm Gastrointestinal: soft Musculoskeletal: nl extremities to inspection Results Result Diagram: 04/11/17 0555 04/11/17 0555 Results 24 hrs Laboratory Tests Test 04/10/17 17:06 04/10/17 21:19 04/11/17 02:38 04/11/17 05:55 Bedside Glucose 216 222 H 214 White Blood Count 7.9 Red Blood Count 3.55 L Hemoglobin 10.7 L Hematocrit 32.5 L Mean Corpuscular Volume 91.5 Mean Corpuscular Hemoglobin 30.1 Mean Corpuscular Hemoglobin Concent 32.9 Red Cell Distribution Width 13.6 Platelet Count 165 Mean Platelet Volume 11.1 H Neutrophils % 59.7 Lymphocytes % 29.3 Monocytes % 7.7 Eosinophils % 2.5 Basophils % 0.5 Nucleated Red Blood Cells % 0.0 Neutrophils # 4.7 Lymphocytes # 2.3 Monocytes # 0.6 Eosinophils # 0.2 Basophils # 0.0 Nucleated Red Blood Cells # 0.0 Sodium Level 144 Potassium Level 3.7 Chloride Level 108 Carbon Dioxide Level 22 Anion Gap 18 H Blood Urea Nitrogen 18 Creatinine 0.84 Glucose Level 189 Calcium Level 9.3 Phosphorus Level 3.6 Magnesium Level 2.0 Test 04/11/17 07:39 04/11/17 11:55 Bedside Glucose 197 169 Medications Medications Current Medications Atorvastatin Calcium (Lipitor) 20 mg QHS PO Last administered on 04/10/17 22:22 ; Admin Dose 20 MG; Start 04/09/17 at 21:00 Buspirone HCl (Buspar) 5 mg BID GTB Last administered on 04/11/17 08:30; Admin Dose 5 MG; Start 04/09/17 at 09:00 Carvedilol (Coreg) 3.125 mg BID GTB Last administered on 04/11/17 08:30; Admin Dose 3.125 MG; Start 04/09/17 at 09:00 Lisinopril (Zestril) 2.5 mg DAILY PO Last administered on 04/11/17 08:29; Admin Dose 2.5 MG; Start 04/09/17 at 09:00 Mirtazapine (Remeron) 7.5 mg HS GTB Last administered on 04/10/17 22:23; Admin Dose 7.5 MG; Start 04/09/17 at 21:00 Quetiapine Fumarate (Seroquel) 100 mg HS PO Last administered on 04/10/17 22:23 ; Admin Dose 100 MG; Start 04/09/17 at 21:00 Memantine (Namenda) 10 mg DAILY PO Last administered on 04/11/17 08:30; Admin Dose 10 MG; Start 04/09/17 at 09:00 Ondansetron HCl (Zofran Inj) 4 mg Q6H PRN IV NAUSEA AND/OR VOMITING Last administered on 04/10/17 20:23; Admin Dose 4 MG; Start 04/09/17 at 04:00 Acetaminophen (Tylenol Tab) 650 mg Q4H PRN PO PAIN AND OR ELEVATED TEMP Last administered on 04/09/17 17:52; Admin Dose 650 MG; Start 04/09/17 at 04:00 Famotidine 20 mg 20 mg AM GTB Last administered on 04/11/17 08:30; Admin Dose 20 MG; Start 04/09/17 at 09:00 Sodium Chloride (NS) 1,000 ml @ 50 mls/hr Q20H IV Last administered on 18:03; Admin Dose 50 MLS/HR; Start 04/09/17 at 04:00 Miscellaneous Information 1 ea NOTE XX ; Start 04/09/17 at 05:00 Glucose (Glutose) 15 gm Q15M PRN PO DECREASED GLUCOSE; Start 04/09/17 at 05:00 Glucose (Glutose) 22.5 gm Q15M PRN PO DECREASED GLUCOSE; Start 04/09/17 at 05:00 Dextrose (D50w Syringe) 25 ml Q15M PRN IV DECREASED GLUCOSE; Start 04/09/17 at 05:00 Dextrose (D50w Syringe) 50 ml Q15M PRN IV DECREASED GLUCOSE; Start 04/09/17 at 05:00 Glucagon (Glucagen) 1 mg Q15M PRN IM DECREASED GLUCOSE; Start 04/09/17 at 05:00 Glucose (Glutose) 15 gm Q15M PRN BUCCAL DECREASED GLUCOSE; Start 04/09/17 at 05: 00 Diagnostic Test (Pha) (Accu-Chek) 1 ea 02 XX Last administered on 04/11/17 02: 44; Admin Dose 1 EA; Start 04/10/17 at 02:00 Insulin Glargine (Lantus) 8 unit DAILY@20 SC Last administered on 04/10/17 21: 24; Admin Dose 8 UNIT; Start 04/09/17 at 20:00 Clonidine HCl (Catapres-Tts 1 Patch) 1 patch Tu@22 TRANSDERM Last administered on 04/10/17 22:23; Admin Dose 1 PATCH; Start 04/10/17 at 22:00 SALUD GARCIA MD Apr 11, 2017 13:37
--- NOTE | 2017-04-11 17:48 | CONS ---
Date/Time of Note Date/Time of Note DATE: 04/11/17 TIME: 17:43 Assessment/Plan Assessment/Plan Additional Assessment/Plan malfunctioning g tune i d/c d old g tube new g tube placed bed side plan resume g t feeding Consultation Date/Type/Reason Admit Date/Time Apr 09, 2017 at 02:20 Reason for Consultation malfunctioning g tube Constitutional: no complaints Eyes: no complaints ENT: no complaints Respiratory: No cough, No shortness of breath Cardiovascular: no complaints Gastrointestinal: decreased appetite Genitourinary: no complaints Musculoskeletal: no complaints Neurologic: confusion Psychological: confusion Past Medical History Medical History: congestive heart failure, diabetes, hypertension, urinary tract infection Past Surgical History Past Surgical Hx: cholecystectomy, endoscopy, other Social History Alcohol Use: none Smoking Status: Unknown if ever smoked Drug Use: none Exam/Review of Systems Vital Signs Vitals Vital Signs Date Time Temp Pulse Resp B/P Pulse Ox O2 Delivery O2 Flow Rate FiO2 04/11/17 15:58 97.5 74 16 88/49 95 04/11/17 13:56 Room Air Intake and Output 04/10/17 04/10/17 04/11/17 15:00 23:00 07:00 Intake Total 1410 ml 770 ml Output Total 200 ml Balance 1210 ml 770 ml Exam pt admittedv with h/o dementia and uti has deteriorated g tube oe pt lethargic screems at btimes abd showed deteriorated tube abd soft bread icer dementia heart nsr lungs clear Results Result Diagram: 04/11/17 0555 04/11/17 0555 Results 24 hrs Laboratory Tests Test 04/10/17 21:19 04/11/17 02:38 04/11/17 05:55 04/11/17 07:39 Bedside Glucose 222 H 214 197 White Blood Count 7.9 Red Blood Count 3.55 L Hemoglobin 10.7 L Hematocrit 32.5 L Mean Corpuscular Volume 91.5 Mean Corpuscular Hemoglobin 30.1 Mean Corpuscular Hemoglobin Concent 32.9 Red Cell Distribution Width 13.6 Platelet Count 165 Mean Platelet Volume 11.1 H Neutrophils % 59.7 Lymphocytes % 29.3 Monocytes % 7.7 Eosinophils % 2.5 Basophils % 0.5 Nucleated Red Blood Cells % 0.0 Neutrophils # 4.7 Lymphocytes # 2.3 Monocytes # 0.6 Eosinophils # 0.2 Basophils # 0.0 Nucleated Red Blood Cells # 0.0 Sodium Level 144 Potassium Level 3.7 Chloride Level 108 Carbon Dioxide Level 22 Anion Gap 18 H Blood Urea Nitrogen 18 Creatinine 0.84 Glucose Level 189 Calcium Level 9.3 Phosphorus Level 3.6 Magnesium Level 2.0 Test 04/11/17 11:55 04/11/17 17:19 Bedside Glucose 169 165 Medications Medications Current Medications Atorvastatin Calcium (Lipitor) 20 mg QHS PO Last administered on 04/10/17 22:22 ; Admin Dose 20 MG; Start 04/09/17 at 21:00 Buspirone HCl (Buspar) 5 mg BID GTB Last administered on 04/11/17 08:30; Admin Dose 5 MG; Start 04/09/17 at 09:00 Carvedilol (Coreg) 3.125 mg BID GTB Last administered on 04/11/17 08:30; Admin Dose 3.125 MG; Start 04/09/17 at 09:00 Mirtazapine (Remeron) 7.5 mg HS GTB Last administered on 04/10/17 22:23; Admin Dose 7.5 MG; Start 04/09/17 at 21:00 Quetiapine Fumarate (Seroquel) 100 mg HS PO Last administered on 04/10/17 22:23 ; Admin Dose 100 MG; Start 04/09/17 at 21:00 Memantine (Namenda) 10 mg DAILY PO Last administered on 04/11/17 08:30; Admin Dose 10 MG; Start 04/09/17 at 09:00 Ondansetron HCl (Zofran Inj) 4 mg Q6H PRN IV NAUSEA AND/OR VOMITING Last administered on 04/10/17 20:23; Admin Dose 4 MG; Start 04/09/17 at 04:00 Acetaminophen (Tylenol Tab) 650 mg Q4H PRN PO PAIN AND OR ELEVATED TEMP Last administered on 04/09/17 17:52; Admin Dose 650 MG; Start 04/09/17 at 04:00 Famotidine (Pepcid) 20 mg AM GTB Last administered on 04/11/17 08:30; Admin Dose 20 MG; Start 04/09/17 at 09:00 Miscellaneous Information 1 ea NOTE XX ; Start 04/09/17 at 05:00 Glucose (Glutose) 15 gm Q15M PRN PO DECREASED GLUCOSE; Start 04/09/17 at 05:00 Glucose (Glutose) 22.5 gm Q15M PRN PO DECREASED GLUCOSE; Start 04/09/17 at 05:00 Dextrose (D50w Syringe) 25 ml Q15M PRN IV DECREASED GLUCOSE; Start 04/09/17 at 05:00 Dextrose (D50w Syringe) 50 ml Q15M PRN IV DECREASED GLUCOSE; Start 04/09/17 at 05:00 Glucagon (Glucagen) 1 mg Q15M PRN IM DECREASED GLUCOSE; Start 04/09/17 at 05:00 Glucose (Glutose) 15 gm Q15M PRN BUCCAL DECREASED GLUCOSE; Start 04/09/17 at 05: 00 Diagnostic Test (Pha) (Accu-Chek) 1 ea 02 XX Last administered on 04/11/17 02: 44; Admin Dose 1 EA; Start 04/10/17 at 02:00 Clonidine HCl (Catapres-Tts 1 Patch) 1 patch Tu@22 TRANSDERM Last administered on 04/10/17 22:23; Admin Dose 1 PATCH; Start 04/10/17 at 22:00 Insulin Glargine (Lantus) 10 unit DAILY@20 SC ; Start 04/11/17 at 20:00 Lisinopril (Zestril) 5 mg DAILY PO ; Start 04/12/17 at 09:00 ISABELLA LESLIE MD Apr 11, 2017 17:47
[2017-04-11] MEDS: QUETIAPINE 100 MG TAB PO SCH (21:01)
[2017-04-11] MEDS: ATORVASTATIN 20 MG TAB PO SCH (21:02)
[2017-04-11] MEDS: MIRTAZAPINE 15 MG TAB GTB SCH (21:02)
[2017-04-11] MEDS: INSULIN GLARGINE [LANtus] 3 ML PEN SC SCH (21:05)
[2017-04-12] MEDS: ACCU-CHEK XX SCH (02:00)
[2017-04-12 07:33] VITALS: BP 145/68; RESP 20
[2017-04-12] MEDS: INSULIN ASPART [NOVOLOG] 3 ML PEN SC SCH ×4 (07:59→20:36)
--- NOTE | 2017-04-12 08:36 | PN ---
Date/Time of Note Date/Time of Note DATE: 04/12/17 TIME: 08:31 Assessment/Plan VTE Prophylaxis VTE Prophylaxis Intervention: SCD's Lines/Catheters IV Catheter Type (from [facility]): Peripheral IV Urinary Cath still in place: No Assessment/Plan Chief Complaint/Hosp Course Impression: 1. this patient was admitted through the emergency room after she presented with generalized weakness and increasing lethargy. She seems overall better. Her renal function is improved. She is not eating. Her concrete mixer loader truck mounted who was in the room with her says that she eats regular food at home. I think the patient does not like the restricted diet here. I will order a regular diet. 2. Type 2 diabetes mellitus. The blood sugar seems to be coming under control. 3. Dementia 4. Recurrent urinary tract infections . Her urine is now no growth. 5. 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 She is able to swallow without a problem. The family says they use the G-tube to give her water. Dr Uribe changed her G tube . 6. History of anxiety depression 7. Neurogenic bladder. 8. Chronic anemia Plan: 1. Continue current management and medication. 2. Adjust sliding scale insulin. Increase Lantus insulin at night. 3. GI consultation to change feeding tube. 4. Check labs in the morning. 5. Resume some routine medications. I will DC IV fluids at this time. 6. I will change to a regular diet and will encourage her to eat. 7. Discharge planning patient could be discharged to home tomorrow. Problems: Subjective 24 Hr Interval Summary Free Text/Dictation She is in bed resting. She seems comfortable. She has no complaints. Constitutional: improved, no complaints ENT: no complaints Respiratory: no complaints Cardiovascular: no complaints Gastrointestinal: decreased appetite Genitourinary: no complaints Musculoskeletal: no complaints Exam/Review of Systems Vital Signs Vitals Vital Signs Date Time Temp Pulse Resp B/P Pulse Ox O2 Delivery O2 Flow Rate FiO2 04/12/17 07:33 98.8 91 20 145/68 98 04/11/17 13:56 Room Air Intake and Output 04/11/17 04/11/17 04/12/17 15:00 23:00 07:00 Intake Total 450 ml 200 ml Balance 450 ml 200 ml Exam Her G-tube was changed yesterday. Constitutional: alert, oriented, well developed Respiratory: clear to auscultation, normal air movement Cardiovascular: nl pulses, regular rate and rhythm Gastrointestinal: non-tender, soft Musculoskeletal: nl extremities to inspection Results Result Diagram: 04/11/17 0555 04/11/17 0555 Results 24 hrs Laboratory Tests Test 04/11/17 11:55 04/11/17 17:19 04/11/17 20:59 04/12/17 07:52 Bedside Glucose 169 165 165 181 Medications Medications Current Medications Atorvastatin Calcium (Lipitor) 20 mg QHS PO Last administered on 04/11/17 21:02 ; Admin Dose 20 MG; Start 04/09/17 at 21:00 Buspirone HCl (Buspar) 5 mg BID GTB Last administered on 04/11/17 21:01; Admin Dose 5 MG; Start 04/09/17 at 09:00 Carvedilol (Coreg) 3.125 mg BID GTB Last administered on 04/11/17 21:01; Admin Dose 3.125 MG; Start 04/09/17 at 09:00 Mirtazapine (Remeron) 7.5 mg HS GTB Last administered on 04/11/17 21:02; Admin Dose 7.5 MG; Start 04/09/17 at 21:00 Quetiapine Fumarate (Seroquel) 100 mg HS PO Last administered on 04/11/17 21:01 ; Admin Dose 100 MG; Start 04/09/17 at 21:00 Memantine (Namenda) 10 mg DAILY PO Last administered on 04/11/17 08:30; Admin Dose 10 MG; Start 04/09/17 at 09:00 Ondansetron HCl (Zofran Inj) 4 mg Q6H PRN IV NAUSEA AND/OR VOMITING Last administered on 04/10/17 20:23; Admin Dose 4 MG; Start 04/09/17 at 04:00 Acetaminophen (Tylenol Tab) 650 mg Q4H PRN PO PAIN AND OR ELEVATED TEMP Last administered on 04/09/17 17:52; Admin Dose 650 MG; Start 04/09/17 at 04:00 Famotidine (Pepcid) 20 mg AM GTB Last administered on 04/11/17 08:30; Admin Dose 20 MG; Start 04/09/17 at 09:00 Miscellaneous Information 1 ea NOTE XX ; Start 04/09/17 at 05:00 Glucose (Glutose) 15 gm Q15M PRN PO DECREASED GLUCOSE; Start 04/09/17 at 05:00 Glucose (Glutose) 22.5 gm Q15M PRN PO DECREASED GLUCOSE; Start 04/09/17 at 05:00 Dextrose (D50w Syringe) 25 ml Q15M PRN IV DECREASED GLUCOSE; Start 04/09/17 at 05:00 Dextrose (D50w Syringe) 50 ml Q15M PRN IV DECREASED GLUCOSE; Start 04/09/17 at 05:00 Glucagon (Glucagen) 1 mg Q15M PRN IM DECREASED GLUCOSE; Start 04/09/17 at 05:00 Glucose (Glutose) 15 gm Q15M PRN BUCCAL DECREASED GLUCOSE; Start 04/09/17 at 05: 00 Diagnostic Test (Pha) (Accu-Chek) 1 ea 02 XX Last administered on 04/11/17 02: 44; Admin Dose 1 EA; Start 04/10/17 at 02:00 Clonidine HCl (Catapres-Tts 1 Patch) 1 patch Tu@22 TRANSDERM Last administered on 04/10/17 22:23; Admin Dose 1 PATCH; Start 04/10/17 at 22:00 Insulin Glargine (Lantus) 10 unit DAILY@20 SC Last administered on 04/11/17 21: 05; Admin Dose 10 UNIT; Start 04/11/17 at 20:00 Lisinopril (Zestril) 5 mg DAILY PO ; Start 04/12/17 at 09:00 SALUD GARCIA MD Apr 12, 2017 08:36
[2017-04-12] MEDS: LEVOTHYROXINE 75 MCG TAB GTB SCH (08:47)
[2017-04-12] MEDS: MEMANTINE 10 MG TAB PO SCH (08:48)
[2017-04-12] MEDS: BUSPIRONE 5 MG TAB GTB SCH ×2 (08:48→20:33)
[2017-04-12] MEDS: FAMOTIDINE 20 MG TAB GTB SCH (08:48)
[2017-04-12] MEDS ORDERED: LISINOPRIL 5 MG TAB PO SCH (09:00)
--- NOTE | 2017-04-12 11:07 | RADRPT ---
Vent Rate: 83 bpm RR Interval: 0 msec LA Interval: 218 msec QRS Duration: 104 msec QT Interval: 404 msec QTC Interval: 474 msec P-R-T Ramsay: 39 - -57 - 73 degrees Sinus rhythm with 1st degree AV block Left axis deviation Anterior infarct , age undetermined Abnormal ECG Electronically Signed By: Kash Chan [id number]
[2017-04-12 19:25] VITALS: BP 167/79; RESP 20
[2017-04-12] MEDS: MIRTAZAPINE 15 MG TAB GTB SCH (20:33)
[2017-04-12] MEDS: QUETIAPINE 100 MG TAB PO SCH (20:33)
[2017-04-12] MEDS: ATORVASTATIN 20 MG TAB PO SCH (20:33)
[2017-04-12] MEDS: INSULIN GLARGINE [LANtus] 3 ML PEN SC SCH (20:40)
[2017-04-13] MEDS: ACCU-CHEK XX SCH (02:00)
[2017-04-13 02:30] VITALS: BP 131/60; PULSE 84
[2017-04-13 07:42] LABS: ADD SCAN DIFF NO
[2017-04-13 07:48] LABS: BASOPHIL # 0.1 10^3/ul (0.0-0.1); BASOPHILS % 0.8 % (0.0-2.0); EOSINOPHILS # 0.3 10^3/ul (0.0-0.5); EOSINOPHILS % 4.4 % (0.0-7.0); HEMATOCRIT 33.4 % (37.0-47.0); HEMOGLOBIN 11.2 g/dl (12.0-16.0); MEAN CORPUSCULAR HEMOGLOBIN 30.9 pg (29.0-33.0); MEAN CORPUSCULAR HGB CONC 33.5 g/dl (32.0-37.0); MEAN PLATELET VOLUME 10.9 fl (7.4-10.4); MONOCYTE # 0.9 10^3/ul (0.3-0.9); MONOCYTES % 11.8 % (0.0-11.0); NEUTROPHIL # 4.2 10^3/ul (1.6-7.5); NEUTROPHILS % 55.6 % (39.0-77.0); PLATELET COUNT 168 10^3/UL (140-415); RED BLOOD COUNT 3.63 10^6/ul (4.20-5.40); RED CELL DISTRIBUTION WIDTH 13.9 % (11.5-14.5); WHITE BLOOD COUNT 7.5 10^3/ul (4.8-10.8)
[2017-04-13] MEDS: INSULIN ASPART [NOVOLOG] 3 ML PEN SC SCH ×4 (07:54→21:43)
[2017-04-13 08:00] VITALS: BP 132/71; RESP 20
[2017-04-13 08:17] LABS: ALBUMIN 4.5 g/dl (3.3-4.9); ALBUMIN/GLOBULIN RATIO 1.28; BILIRUBIN,INDIRECT 0.4 mg/dl (0-1.1); BILIRUBIN,TOTAL 0.4 mg/dl (0.2-1.3); CALCIUM 9.9 mg/dl (8.4-10.2); CREATININE 0.98 mg/dl (0.44-1.00); POTASSIUM 4.3 mmol/L (3.5-5.1)
[2017-04-13] MEDS: FAMOTIDINE 20 MG TAB GTB SCH (09:22)
[2017-04-13] MEDS: LEVOTHYROXINE 75 MCG TAB GTB SCH (09:22)
[2017-04-13] MEDS: BUSPIRONE 5 MG TAB GTB SCH ×2 (09:23→21:37)
[2017-04-13] MEDS: MEMANTINE 10 MG TAB PO SCH (09:23)
[2017-04-13] MEDS: LISINOPRIL 10 MG TAB PO SCH (09:23)
--- NOTE | 2017-04-13 09:59 | PN ---
Date/Time of Note Date/Time of Note DATE: 04/13/17 TIME: 09:54 Assessment/Plan VTE Prophylaxis VTE Prophylaxis Intervention: SCD's Lines/Catheters IV Catheter Type (from [facility]): Saline Lock Urinary Cath still in place: No Assessment/Plan Chief Complaint/Hosp Course Impression: 1. this patient was admitted through the emergency room after she presented with generalized weakness and increasing lethargy. She she is sleeping now and does not want to be disturbed. Her renal function is improved. She is not eating. I am going to start her back on tube feeding. 2. Type 2 diabetes mellitus. The blood sugar seems to be coming under control. 3. Dementia 4. Recurrent urinary tract infections . Her urine is now no growth. 5. 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 She is able to swallow without a problem. The family says they use the G-tube to give her water. Dr Uribe changed her G tube . She is not eating. 6. History of anxiety depression 7. Neurogenic bladder. 8. Chronic anemia 9. She is hypernatremia , she is not taking in enough water. Plan: 1. I am going to restart her on tube feeding with water flushes. 2. Adjust sliding scale insulin. Increase Lantus insulin at night. 3. GI changed her gastric feeding tube 4. Check labs in the morning. 5. Resume some routine medications. I will DC IV fluids at this time. 6. I will change to a regular diet and will encourage her to eat. 7. Discharge planning Problems: Subjective 24 Hr Interval Summary Free Text/Dictation She is sleeping in bed. She wants to stay covered up. I was able to listen to her heart and lungs. Eyes: no complaints Respiratory: no complaints Cardiovascular: no complaints Gastrointestinal: decreased appetite Musculoskeletal: no complaints Exam/Review of Systems Vital Signs Vitals Vital Signs Date Time Temp Pulse Resp B/P Pulse Ox O2 Delivery O2 Flow Rate FiO2 04/13/17 08:00 97.5 86 20 132/71 96 04/13/17 02:30 Room Air Intake and Output 04/12/17 04/12/17 04/13/17 15:00 23:00 07:00 Intake Total 0 ml 120 ml Balance 0 ml 120 ml Exam Constitutional: alert Psych: no complaints Respiratory: clear to auscultation, normal air movement Cardiovascular: regular rate and rhythm Gastrointestinal: bowel sounds, other, soft Musculoskeletal: nl extremities to inspection Results Result Diagram: 04/13/17 0720 04/13/17 0720 Results 24 hrs Laboratory Tests Test 04/12/17 12:12 04/12/17 17:36 04/12/17 20:36 04/13/17 07:20 Bedside Glucose 164 186 155 White Blood Count 7.5 Red Blood Count 3.63 L Hemoglobin 11.2 L Hematocrit 33.4 L Mean Corpuscular Volume 92.0 Mean Corpuscular Hemoglobin 30.9 Mean Corpuscular Hemoglobin Concent 33.5 Red Cell Distribution Width 13.9 Platelet Count 168 Mean Platelet Volume 10.9 H Neutrophils % 55.6 Lymphocytes % 27.0 Monocytes % 11.8 H Eosinophils % 4.4 Basophils % 0.8 Nucleated Red Blood Cells % 0.0 Neutrophils # 4.2 Lymphocytes # 2.0 Monocytes # 0.9 Eosinophils # 0.3 Basophils # 0.1 Nucleated Red Blood Cells # 0.0 Sodium Level 150 H Potassium Level 4.3 Chloride Level 108 Carbon Dioxide Level 26 Anion Gap 20 H Blood Urea Nitrogen 28 H Creatinine 0.98 Glucose Level 201 Calcium Level 9.9 Total Bilirubin 0.4 Direct Bilirubin 0.00 Indirect Bilirubin 0.4 Aspartate Amino Transf (AST/SGOT) 22 Alanine Aminotransferase (ALT/SGPT) 29 Alkaline Phosphatase 99 Total Protein 8.0 Albumin 4.5 Globulin 3.50 H Albumin/Globulin Ratio 1.28 Test 04/13/17 07:46 Bedside Glucose 201 Medications Medications Current Medications Atorvastatin Calcium (Lipitor) 20 mg QHS PO Last administered on 04/12/17 20:33 ; Admin Dose 20 MG; Start 04/09/17 at 21:00 Buspirone HCl (Buspar) 5 mg BID GTB Last administered on 04/13/17 09:23; Admin Dose 5 MG; Start 04/09/17 at 09:00 Mirtazapine (Remeron) 7.5 mg HS GTB Last administered on 04/12/17 20:33; Admin Dose 7.5 MG; Start 04/09/17 at 21:00 Quetiapine Fumarate (Seroquel) 100 mg HS PO Last administered on 04/12/17 20:33 ; Admin Dose 100 MG; Start 04/09/17 at 21:00 Memantine (Namenda) 10 mg DAILY PO Last administered on 04/13/17 09:23; Admin Dose 10 MG; Start 04/09/17 at 09:00 Ondansetron HCl (Zofran Inj) 4 mg Q6H PRN IV NAUSEA AND/OR VOMITING Last administered on 04/10/17 20:23; Admin Dose 4 MG; Start 04/09/17 at 04:00 Acetaminophen (Tylenol Tab) 650 mg Q4H PRN PO PAIN AND OR ELEVATED TEMP Last administered on 04/09/17 17:52; Admin Dose 650 MG; Start 04/09/17 at 04:00 Famotidine (Pepcid) 20 mg AM GTB Last administered on 04/13/17 09:22; Admin Dose 20 MG; Start 04/09/17 at 09:00 Miscellaneous Information 1 ea NOTE XX ; Start 04/09/17 at 05:00 Glucose (Glutose) 15 gm Q15M PRN PO DECREASED GLUCOSE; Start 04/09/17 at 05:00 Glucose (Glutose) 22.5 gm Q15M PRN PO DECREASED GLUCOSE; Start 04/09/17 at 05:00 Dextrose (D50w Syringe) 25 ml Q15M PRN IV DECREASED GLUCOSE; Start 04/09/17 at 05:00 Dextrose (D50w Syringe) 50 ml Q15M PRN IV DECREASED GLUCOSE; Start 04/09/17 at 05:00 Glucagon (Glucagen) 1 mg Q15M PRN IM DECREASED GLUCOSE; Start 04/09/17 at 05:00 Glucose (Glutose) 15 gm Q15M PRN BUCCAL DECREASED GLUCOSE; Start 04/09/17 at 05: 00 Diagnostic Test (Pha) (Accu-Chek) 1 ea 02 XX Last administered on 04/11/17 02: 44; Admin Dose 1 EA; Start 04/10/17 at 02:00 Clonidine HCl (Catapres-Tts 1 Patch) 1 patch Tu@22 TRANSDERM Last administered on 04/10/17 22:23; Admin Dose 1 PATCH; Start 04/10/17 at 22:00 Insulin Glargine (Lantus) 10 unit DAILY@20 SC Last administered on 04/12/17 20: 40; Admin Dose 10 UNIT; Start 04/11/17 at 20:00 Carvedilol (Coreg) 6.25 mg BID PO Last administered on 04/13/17 09:23; Admin Dose 6.25 MG; Start 04/12/17 at 21:00 Lisinopril (Zestril) 10 mg DAILY PO Last administered on 04/13/17 09:23; Admin Dose 10 MG; Start 04/13/17 at 09:00 SALUD GARCIA MD Apr 13, 2017 09:59
[2017-04-13 19:38] VITALS: BP 157/74; RESP 18
[2017-04-13] MEDS ORDERED: INSULIN GLARGINE [LANtus] 3 ML PEN SC SCH (20:00)
[2017-04-13] MEDS: ATORVASTATIN 20 MG TAB PO SCH (21:37)
[2017-04-13] MEDS: MIRTAZAPINE 15 MG TAB GTB SCH (21:37)
[2017-04-13] MEDS: QUETIAPINE 100 MG TAB PO SCH (21:37)
[2017-04-14] MEDS: ACCU-CHEK XX SCH (02:00)
[2017-04-14 02:01] VITALS: BP 157/69; RESP 18
[2017-04-14 07:07] LABS: ALBUMIN 4.3 g/dl (3.3-4.9); ALBUMIN/GLOBULIN RATIO 1.38; BILIRUBIN,INDIRECT 0.2 mg/dl (0-1.1); BILIRUBIN,TOTAL 0.2 mg/dl (0.2-1.3); CREATININE 0.93 mg/dl (0.44-1.00); POTASSIUM 3.5 mmol/L (3.5-5.1); TOTAL PROTEIN 7.4 g/dl (6.1-8.1)
[2017-04-14] MEDS: INSULIN ASPART [NOVOLOG] 3 ML PEN SC SCH ×4 (08:28→20:56)
[2017-04-14] MEDS: LEVOTHYROXINE 75 MCG TAB GTB SCH (09:58)
[2017-04-14] MEDS: MEMANTINE 10 MG TAB PO SCH (09:58)
[2017-04-14] MEDS: FAMOTIDINE 20 MG TAB GTB SCH (09:58)
[2017-04-14] MEDS: BUSPIRONE 5 MG TAB GTB SCH ×2 (09:58→20:47)
[2017-04-14] MEDS: LISINOPRIL 10 MG TAB PO SCH (10:05)
--- NOTE | 2017-04-14 16:28 | PN ---
Date/Time of Note Date/Time of Note DATE: 04/14/17 TIME: 16:25 Assessment/Plan VTE Prophylaxis VTE Prophylaxis Intervention: anti-embolic stocking Lines/Catheters [facility] Saline Lock Urinary Cath still in place: No Assessment/Plan Assessment/Plan Assessment/Plan Chief Complaint/Hosp Course Impression: 1. this patient was admitted through the emergency room after she presented with generalized weakness and increasing lethargy. She she is sleeping now and does not want to be disturbed. Her renal function is improved. She is not eating. I am going to start her back on tube feeding. 2. Type 2 diabetes mellitus. The blood sugar seems to be coming under control. 3. Dementia 4. Recurrent urinary tract infections . Her urine is now no growth. 5. 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 She is able to swallow without a problem. The family says they use the G-tube to give her water. Dr Uribe changed her G tube . She is not eating. 6. History of anxiety depression 7. Neurogenic bladder. 8. Chronic anemia 9. She is hypernatremia , she is not taking in enough water.- resolved Plan: 1. gtube feeding, fwf, improved sodium 2. Adjust sliding scale insulin. Increase Lantus insulin at night.- increased to 16 units, rbs 250-275 am and noon 3. GI changed her gastric feeding tube 4. Check labs in the morning. 5. Resume some routine medications. I will DC IV fluids at this time. 6. I will change to a regular diet and will encourage her to eat. 7. Discharge planning 8. Grandson at bedside; education provided about advance dementia including prognosis and expectations Subjective 24 Hr Interval Summary Constitutional: improved, no complaints Eyes: no complaints ENT: no complaints Respiratory: no complaints, No pain Cardiovascular: no complaints, No chest pain Gastrointestinal: no complaints, No pain Genitourinary: no complaints, No bleeding, No dysuria Musculoskeletal: no complaints, No back pain, No bone/joint pain Skin: no complaints Exam/Review of Systems Vital Signs Vitals Vital Signs Date Time Temp Pulse Resp B/P Pulse Ox O2 Delivery O2 Flow Rate FiO2 04/14/17 02:01 98.5 82 18 157/69 95 04/13/17 02:30 Room Air Intake and Output 04/13/17 04/13/17 04/14/17 15:00 23:00 07:00 Intake Total 670 ml 420 ml Balance 670 ml 420 ml Exam Constitutional: alert, oriented Psych: no complaints Head: normocephalic Eyes: EOMI, nl conjunctiva ENMT: other (poor oral dentition) Neck: supple Respiratory: clear to auscultation, normal air movement Cardiovascular: nl pulses, regular rate and rhythm Gastrointestinal: non-tender, soft, No distended, No rebound or guarding Neurological: SHIFT MANAGER II-XII intact, No nl mental status Results Result Diagram: 04/13/17 0720 04/14/17 0500 Results 24 hrs Laboratory Tests Test 04/13/17 17:23 04/13/17 21:32 04/14/17 02:55 04/14/17 05:00 Bedside Glucose 270 H 228 H 242 H Sodium Level 139 Potassium Level 3.5 Chloride Level 104 Carbon Dioxide Level 25 Anion Gap 14 Blood Urea Nitrogen 35 H Creatinine 0.93 Glucose Level 234 H Calcium Level 9.0 Total Bilirubin 0.2 Direct Bilirubin 0.00 Indirect Bilirubin 0.2 Aspartate Amino Transf (AST/SGOT) 38 Alanine Aminotransferase (ALT/SGPT) 31 Alkaline Phosphatase 86 Total Protein 7.4 Albumin 4.3 Globulin 3.10 Albumin/Globulin Ratio 1.38 Test 04/14/17 08:10 04/14/17 12:11 Bedside Glucose 265 H 259 H Medications Medications Current Medications Atorvastatin Calcium (Lipitor) 20 mg QHS PO Last administered on 04/13/17 21:37 ; Admin Dose 20 MG; Start 04/09/17 at 21:00 Buspirone HCl (Buspar) 5 mg BID GTB Last administered on 04/14/17 09:58; Admin Dose 5 MG; Start 04/09/17 at 09:00 Mirtazapine (Remeron) 7.5 mg HS GTB Last administered on 04/13/17 21:37; Admin Dose 7.5 MG; Start 04/09/17 at 21:00 Quetiapine Fumarate (Seroquel) 100 mg HS PO Last administered on 04/13/17 21:37 ; Admin Dose 100 MG; Start 04/09/17 at 21:00 Memantine (Namenda) 10 mg DAILY PO Last administered on 04/14/17 09:58; Admin Dose 10 MG; Start 04/09/17 at 09:00 Ondansetron HCl (Zofran Inj) 4 mg Q6H PRN IV NAUSEA AND/OR VOMITING Last administered on 04/10/17 20:23; Admin Dose 4 MG; Start 04/09/17 at 04:00 Acetaminophen (Tylenol Tab) 650 mg Q4H PRN PO PAIN AND OR ELEVATED TEMP Last administered on 04/09/17 17:52; Admin Dose 650 MG; Start 04/09/17 at 04:00 Famotidine (Pepcid) 20 mg AM GTB Last administered on 04/14/17 09:58; Admin Dose 20 MG; Start 04/09/17 at 09:00 Miscellaneous Information 1 ea NOTE XX ; Start 04/09/17 at 05:00 Glucose (Glutose) 15 gm Q15M PRN PO DECREASED GLUCOSE; Start 04/09/17 at 05:00 Glucose (Glutose) 22.5 gm Q15M PRN PO DECREASED GLUCOSE; Start 04/09/17 at 05:00 Dextrose (D50w Syringe) 25 ml Q15M PRN IV DECREASED GLUCOSE; Start 04/09/17 at 05:00 Dextrose (D50w Syringe) 50 ml Q15M PRN IV DECREASED GLUCOSE; Start 04/09/17 at 05:00 Glucagon (Glucagen) 1 mg Q15M PRN IM DECREASED GLUCOSE; Start 04/09/17 at 05:00 Glucose (Glutose) 15 gm Q15M PRN BUCCAL DECREASED GLUCOSE; Start 04/09/17 at 05: 00 Diagnostic Test (Pha) (Accu-Chek) 1 ea 02 XX Last administered on 04/11/17 02: 44; Admin Dose 1 EA; Start 04/10/17 at 02:00 Clonidine HCl (Catapres-Tts 1 Patch) 1 patch Tu@22 TRANSDERM Last administered on 04/10/17 22:23; Admin Dose 1 PATCH; Start 04/10/17 at 22:00 Carvedilol (Coreg) 6.25 mg BID PO Last administered on 04/14/17 10:05; Admin Dose 6.25 MG; Start 04/12/17 at 21:00 Lisinopril (Zestril) 10 mg DAILY PO Last administered on 04/14/17 10:05; Admin Dose 10 MG; Start 04/13/17 at 09:00 Insulin Glargine (Lantus) 16 unit DAILY@20 SC ; Start 04/14/17 at 20:00 JETHRO DIAZ MD Apr 14, 2017 16:28
[2017-04-14 19:50] VITALS: BP 140/63; RESP 18
[2017-04-14] MEDS: MIRTAZAPINE 15 MG TAB GTB SCH (20:47)
[2017-04-14] MEDS: ATORVASTATIN 20 MG TAB PO SCH (20:47)
[2017-04-14] MEDS: QUETIAPINE 100 MG TAB PO SCH (20:48)
[2017-04-14] MEDS: INSULIN GLARGINE [LANtus] 3 ML PEN SC SCH (20:57)
[2017-04-15 02:00] VITALS: BP 127/59; RESP 18
[2017-04-15] MEDS: ACCU-CHEK XX SCH (02:00)
[2017-04-15 06:23] LABS: ADD SCAN DIFF NO
[2017-04-15 06:29] LABS: BASOPHIL # 0.1 10^3/ul (0.0-0.1); BASOPHILS % 0.6 % (0.0-2.0); EOSINOPHILS # 0.4 10^3/ul (0.0-0.5); EOSINOPHILS % 4.4 % (0.0-7.0); HEMATOCRIT 33.1 % (37.0-47.0); HEMOGLOBIN 10.9 g/dl (12.0-16.0); LYMPHOCYTES # 2.4 10^3/ul (0.8-2.9); LYMPHOCYTES % 29.6 % (15.0-51.0); MEAN CORPUSCULAR HEMOGLOBIN 30.4 pg (29.0-33.0); MEAN CORPUSCULAR HGB CONC 32.9 g/dl (32.0-37.0); MEAN CORPUSCULAR VOLUME 92.5 fl (82.0-101.0); MEAN PLATELET VOLUME 11.7 fl (7.4-10.4); MONOCYTE # 0.9 10^3/ul (0.3-0.9); MONOCYTES % 11.5 % (0.0-11.0); NEUTROPHIL # 4.3 10^3/ul (1.6-7.5); NEUTROPHILS % 53.5 % (39.0-77.0); PLATELET COUNT 166 10^3/UL (140-415); RED BLOOD COUNT 3.58 10^6/ul (4.20-5.40); RED CELL DISTRIBUTION WIDTH 13.8 % (11.5-14.5); WHITE BLOOD COUNT 7.9 10^3/ul (4.8-10.8)
[2017-04-15 07:06] LABS: ALBUMIN 4.4 g/dl (3.3-4.9); ALBUMIN/GLOBULIN RATIO 1.37; BILIRUBIN,INDIRECT 0.2 mg/dl (0-1.1); BILIRUBIN,TOTAL 0.2 mg/dl (0.2-1.3); CALCIUM 9.6 mg/dl (8.4-10.2); CREATININE 0.88 mg/dl (0.44-1.00); PHOSPHORUS 3.7 mg/dl (2.5-4.9); POTASSIUM 4.2 mmol/L (3.5-5.1); TOTAL PROTEIN 7.6 g/dl (6.1-8.1)
[2017-04-15] MEDS: INSULIN ASPART [NOVOLOG] 3 ML PEN SC SCH ×4 (08:04→20:27)
[2017-04-15 08:11] VITALS: BP 148/65; RESP 16
[2017-04-15] MEDS: LEVOTHYROXINE 75 MCG TAB GTB SCH (08:53)
[2017-04-15] MEDS: MEMANTINE 10 MG TAB PO SCH (08:54)
[2017-04-15] MEDS: FAMOTIDINE 20 MG TAB GTB SCH (08:54)
[2017-04-15] MEDS: LISINOPRIL 10 MG TAB PO SCH (08:55)
[2017-04-15] MEDS: BUSPIRONE 5 MG TAB GTB SCH ×2 (08:55→20:28)
--- NOTE | 2017-04-15 19:50 | PN ---
Date/Time of Note Date/Time of Note DATE: 04/15/17 TIME: 19:47 Assessment/Plan VTE Prophylaxis VTE Prophylaxis Intervention: ambulation Lines/Catheters IV Catheter Type (from [facility]): Saline Lock Urinary Cath still in place: No Assessment/Plan Assessment/Plan Impression: 1. this patient was admitted through the emergency room after she presented with generalized weakness and increasing lethargy. She she is sleeping now and does not want to be disturbed. Her renal function is improved. She is not eating. I am going to start her back on tube feeding. 2. Type 2 diabetes mellitus. The blood sugar seems to be coming under control. 3. Dementia, currently at baseline. I think this is the best the patient can be. Per grandson, patient is near her baseline but still has some mild weakness. 4. Recurrent urinary tract infections . Her urine is now no growth. 5. 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 She is able to swallow without a problem. The family says they use the G-tube to give her water. Dr Uribe changed her G tube . She is not eating. 6. History of anxiety depression 7. Neurogenic bladder. 8. Chronic anemia 9. She is hypernatremia , she is not taking in enough water.- resolved 10. Oral pain due to dental problems, I explained to the grandson that patient will not likely have any dental interventions due to her mental status and the inability to participate. He acknowledges understanding. Plan: 1. gtube feeding, fwf, improved sodium 2. Adjust sliding scale insulin. Increase Lantus insulin at night.- increased to 16 units, rbs 250-275 am and noon 3. GI changed her gastric feeding tube 4. Check labs in the morning. 5. Resume some routine medications. I will DC IV fluids at this time. 6. I will change to a regular diet and will encourage her to eat. 7. Discharge planning 8. Grandson at bedside; education provided about advance dementia including prognosis and expectations 9. DC planning. Dr. Handy will return tomorrow to assume care for this patient Subjective 24 Hr Interval Summary Constitutional: no complaints Eyes: no complaints ENT: no complaints Respiratory: no complaints, No pain Cardiovascular: no complaints, No chest pain, No edema Gastrointestinal: no complaints, No pain Genitourinary: No bleeding, No dysuria Exam/Review of Systems Vital Signs Vitals Vital Signs Date Time Temp Pulse Resp B/P Pulse Ox O2 Delivery O2 Flow Rate FiO2 04/15/17 08:11 97.9 71 16 148/65 99 04/13/17 02:30 Room Air Intake and Output 04/14/17 04/14/17 04/15/17 15:00 23:00 07:00 Intake Total 0 ml 630 ml Balance 0 ml 630 ml Exam Constitutional: alert, well developed, No oriented Psych: confusion Head: normocephalic Eyes: EOMI, nl conjunctiva ENMT: nl external ears & nose Neck: non-tender, supple Respiratory: clear to auscultation, normal air movement Cardiovascular: nl pulses, regular rate and rhythm Gastrointestinal: bowel sounds, soft Extremities: normal pulses Neurological: SENSITIZER II-XII intact Results Result Diagram: 04/15/1751904/15/17 0520 Results 24 hrs Laboratory Tests Test 04/14/17 20:45 04/15/17 01:37 04/15/17 05:20 04/15/17 07:52 Bedside Glucose 207 180 279 H White Blood Count 7.9 Red Blood Count 3.58 L Hemoglobin 10.9 L Hematocrit 33.1 L Mean Corpuscular Volume 92.5 Mean Corpuscular Hemoglobin 30.4 Mean Corpuscular Hemoglobin Concent 32.9 Red Cell Distribution Width 13.8 Platelet Count 166 Mean Platelet Volume 11.7 H Neutrophils % 53.5 Lymphocytes % 29.6 Monocytes % 11.5 H Eosinophils % 4.4 Basophils % 0.6 Nucleated Red Blood Cells % 0.0 Neutrophils # 4.3 Lymphocytes # 2.4 Monocytes # 0.9 Eosinophils # 0.4 Basophils # 0.1 Nucleated Red Blood Cells # 0.0 Sodium Level 145 H Potassium Level 4.2 Chloride Level 104 Carbon Dioxide Level 27 Anion Gap 18 H Blood Urea Nitrogen 33 H Creatinine 0.88 Glucose Level 236 H Calcium Level 9.6 Phosphorus Level 3.7 Magnesium Level 2.0 Total Bilirubin 0.2 Direct Bilirubin 0.00 Indirect Bilirubin 0.2 Aspartate Amino Transf (AST/SGOT) 52 H Alanine Aminotransferase (ALT/SGPT) 30 Alkaline Phosphatase 91 Total Protein 7.6 Albumin 4.4 Globulin 3.20 Albumin/Globulin Ratio 1.37 Test 04/15/17 12:07 04/15/17 17:22 Bedside Glucose 207 162 Medications Medications Current Medications Atorvastatin Calcium (Lipitor) 20 mg QHS PO Last administered on 04/14/17 20:47 ; Admin Dose 20 MG; Start 04/09/17 at 21:00 Buspirone HCl (Buspar) 5 mg BID GTB Last administered on 04/15/17 08:55; Admin Dose 5 MG; Start 04/09/17 at 09:00 Mirtazapine (Remeron) 7.5 mg HS GTB Last administered on 04/14/17 20:47; Admin Dose 7.5 MG; Start 04/09/17 at 21:00 Quetiapine Fumarate (Seroquel) 100 mg HS PO Last administered on 04/14/17 20:48 ; Admin Dose 100 MG; Start 04/09/17 at 21:00 Memantine (Namenda) 10 mg DAILY PO Last administered on 04/15/17 08:54; Admin Dose 10 MG; Start 04/09/17 at 09:00 Ondansetron HCl (Zofran Inj) 4 mg Q6H PRN IV NAUSEA AND/OR VOMITING Last administered on 04/10/17 20:23; Admin Dose 4 MG; Start 04/09/17 at 04:00 Acetaminophen (Tylenol Tab) 650 mg Q4H PRN PO PAIN AND OR ELEVATED TEMP Last administered on 04/09/17 17:52; Admin Dose 650 MG; Start 04/09/17 at 04:00 Famotidine (Pepcid) 20 mg AM GTB Last administered on 04/15/17 08:54; Admin Dose 20 MG; Start 04/09/17 at 09:00 Miscellaneous Information 1 ea NOTE XX ; Start 04/09/17 at 05:00 Glucose (Glutose) 15 gm Q15M PRN PO DECREASED GLUCOSE; Start 04/09/17 at 05:00 Glucose (Glutose) 22.5 gm Q15M PRN PO DECREASED GLUCOSE; Start 04/09/17 at 05:00 Dextrose (D50w Syringe) 25 ml Q15M PRN IV DECREASED GLUCOSE; Start 04/09/17 at 05:00 Dextrose (D50w Syringe) 50 ml Q15M PRN IV DECREASED GLUCOSE; Start 04/09/17 at 05:00 Glucagon (Glucagen) 1 mg Q15M PRN IM DECREASED GLUCOSE; Start 04/09/17 at 05:00 Glucose (Glutose) 15 gm Q15M PRN BUCCAL DECREASED GLUCOSE; Start 04/09/17 at 05: 00 Diagnostic Test (Pha) (Accu-Chek) 1 ea 02 XX Last administered on 04/11/17 02: 44; Admin Dose 1 EA; Start 04/10/17 at 02:00 Clonidine HCl (Catapres-Tts 1 Patch) 1 patch Tu@22 TRANSDERM Last administered on 04/10/17 22:23; Admin Dose 1 PATCH; Start 04/10/17 at 22:00 Carvedilol (Coreg) 6.25 mg BID PO Last administered on 04/15/17 08:55; Admin Dose 6.25 MG; Start 04/12/17 at 21:00 Lisinopril (Zestril) 10 mg DAILY PO Last administered on 04/15/17 08:55; Admin Dose 10 MG; Start 04/13/17 at 09:00 Insulin Glargine (Lantus) 16 unit DAILY@20 SC Last administered on 04/14/17 20: 57; Admin Dose 16 UNIT; Start 04/14/17 at 20:00 JETHRO DIAZ MD Apr 15, 2017 19:49
[2017-04-15 20:00] VITALS: BP 153/67; RESP 18
[2017-04-15] MEDS: QUETIAPINE 100 MG TAB PO SCH (20:27)
[2017-04-15] MEDS: ATORVASTATIN 20 MG TAB PO SCH (20:27)
[2017-04-15] MEDS: MIRTAZAPINE 15 MG TAB GTB SCH (20:28)
[2017-04-15] MEDS: INSULIN GLARGINE [LANtus] 3 ML PEN SC SCH (20:53)
[2017-04-16] MEDS: ACCU-CHEK XX SCH (01:29)
[2017-04-16 02:00] VITALS: BP 127/56; RESP 20
[2017-04-16 07:56] VITALS: BP 162/71; RESP 18
[2017-04-16] MEDS: INSULIN ASPART [NOVOLOG] 3 ML PEN SC SCH ×4 (08:00→20:18)
[2017-04-16] MEDS: LISINOPRIL 10 MG TAB PO SCH (08:14)
[2017-04-16] MEDS: FAMOTIDINE 20 MG TAB GTB SCH (08:14)
[2017-04-16] MEDS: BUSPIRONE 5 MG TAB GTB SCH ×2 (08:14→20:16)
[2017-04-16] MEDS: LEVOTHYROXINE 75 MCG TAB GTB SCH (08:14)
[2017-04-16] MEDS: MEMANTINE 10 MG TAB PO SCH (08:20)
[2017-04-16 09:53] LABS: ADD SCAN DIFF NO
[2017-04-16 09:57] LABS: BASOPHIL # 0.1 10^3/ul (0.0-0.1); BASOPHILS % 0.7 % (0.0-2.0); EOSINOPHILS # 0.5 10^3/ul (0.0-0.5); EOSINOPHILS % 5.7 % (0.0-7.0); HEMATOCRIT 33.5 % (37.0-47.0); HEMOGLOBIN 10.8 g/dl (12.0-16.0); LYMPHOCYTES # 2.3 10^3/ul (0.8-2.9); LYMPHOCYTES % 27.1 % (15.0-51.0); MEAN CORPUSCULAR HGB CONC 32.2 g/dl (32.0-37.0); MEAN CORPUSCULAR VOLUME 93.1 fl (82.0-101.0); MEAN PLATELET VOLUME 11.3 fl (7.4-10.4); MONOCYTE # 0.8 10^3/ul (0.3-0.9); MONOCYTES % 9.7 % (0.0-11.0); NEUTROPHIL # 4.8 10^3/ul (1.6-7.5); NEUTROPHILS % 56.3 % (39.0-77.0); PLATELET COUNT 172 10^3/UL (140-415); RED CELL DISTRIBUTION WIDTH 13.9 % (11.5-14.5); WHITE BLOOD COUNT 8.6 10^3/ul (4.8-10.8)
[2017-04-16 10:15] LABS: ALBUMIN 4.5 g/dl (3.3-4.9); CALCIUM 9.4 mg/dl (8.4-10.2); CREATININE 0.92 mg/dl (0.44-1.00); MAGNESIUM 2.1 mg/dl (1.7-2.5); PHOSPHORUS 4.3 mg/dl (2.5-4.9); POTASSIUM 3.7 mmol/L (3.5-5.1)
--- NOTE | 2017-04-16 19:47 | PN ---
Date/Time of Note Date/Time of Note DATE: 04/16/17 TIME: 19:45 Assessment/Plan VTE Prophylaxis VTE Prophylaxis Intervention: SCD's Lines/Catheters IV [facility] Type [facility]from [facility] Saline Lock Urinary Cath still in place: No Assessment/Plan Chief Complaint/Hosp Course Impression: 1. this patient was admitted through the emergency room after she presented with generalized weakness and increasing lethargy. The patient is awake and responsive. She denies pain specifically no abdominal pain. Her abdomen is soft and nontender. Patient seems to be tolerating tube feedings. Her grandson would like me to start Megace because she was on this before and it helped her appetite. 2. Type 2 diabetes mellitus. The blood sugar seems to be coming under control. 3. Dementia 4. Recurrent urinary tract infections . Her urine is now no growth. 5. 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 She is able to swallow without a problem. The family says they use the G-tube to give her water. Dr Uribe changed her G tube . She is not eating and is now getting tube feeding which she tolerates. 6. History of anxiety depression 7. Neurogenic bladder. 8. Chronic anemia 9. She is hypernatremia , is corrected. Plan: 1. Continue tube feeding with water flushes. 2. Adjust sliding scale insulin. Increase Lantus insulin at night. 3. I will start the patient on Megace as per the grandson's request. 4. Discharge planning Problems: Subjective 24 Hr Interval Summary Free Text/Dictation Patient is awake and responsive. She says she feels well. She denies pain. Constitutional: no complaints Respiratory: no complaints Cardiovascular: no complaints Gastrointestinal: no complaints Exam/Review of Systems Vital Signs Vitals Vital Signs Date Time Temp Pulse Resp B/P Pulse Ox O2 Delivery O2 Flow Rate FiO2 04/16/17 07:56 97.5 76 18 162/71 97 04/13/17 02:30 Room Air Intake and Output 04/15/17 04/15/17 04/16/17 15:00 23:00 07:00 Intake Total 100 ml 140 ml 660 ml Balance 100 ml 140 ml 660 ml Exam Constitutional: alert Psych: confusion Respiratory: clear to auscultation, normal air movement Cardiovascular: regular rate and rhythm Gastrointestinal: non-tender, soft Musculoskeletal: nl extremities to inspection Results Result Diagram: 04/16/1730 04/16/17 0930 Results 24 hrs Laboratory Tests Test 04/15/17 20:27 04/16/17 07:54 04/16/17 09:30 04/16/17 11:36 Bedside Glucose 178 175 140 White Blood Count 8.6 Red Blood Count 3.60 L Hemoglobin 10.8 L Hematocrit 33.5 L Mean Corpuscular Volume 93.1 Mean Corpuscular Hemoglobin 30.0 Mean Corpuscular Hemoglobin Concent 32.2 Red Cell Distribution Width 13.9 Platelet Count 172 Mean Platelet Volume 11.3 H Neutrophils % 56.3 Lymphocytes % 27.1 Monocytes % 9.7 Eosinophils % 5.7 Basophils % 0.7 Nucleated Red Blood Cells % 0.0 Neutrophils # 4.8 Lymphocytes # 2.3 Monocytes # 0.8 Eosinophils # 0.5 Basophils # 0.1 Nucleated Red Blood Cells # 0.0 Sodium Level 139 Potassium Level 3.7 Chloride Level 104 Carbon Dioxide Level 27 Anion Gap 12 Blood Urea Nitrogen 32 H Creatinine 0.92 Glucose Level 135 # Calcium Level 9.4 Phosphorus Level 4.3 Magnesium Level 2.1 Albumin 4.5 Test 04/16/17 17:19 Bedside Glucose 241 H Medications Medications Current Medications Atorvastatin Calcium (Lipitor) 20 mg QHS PO Last administered on 04/15/17 20:27 ; Admin Dose 20 MG; Start 04/09/17 at 21:00 Buspirone HCl (Buspar) 5 mg BID GTB Last administered on 04/16/17 08:14; Admin Dose 5 MG; Start 04/09/17 at 09:00 Mirtazapine (Remeron) 7.5 mg HS GTB Last administered on 04/15/17 20:28; Admin Dose 7.5 MG; Start 04/09/17 at 21:00 Quetiapine Fumarate (Seroquel) 100 mg HS PO Last administered on 04/15/17 20:27 ; Admin Dose 100 MG; Start 04/09/17 at 21:00 Memantine (Namenda) 10 mg DAILY PO Last administered on 04/16/17 08:20; Admin Dose 10 MG; Start 04/09/17 at 09:00 Ondansetron HCl (Zofran Inj) 4 mg Q6H PRN IV NAUSEA AND/OR VOMITING Last administered on 04/10/17 20:23; Admin Dose 4 MG; Start 04/09/17 at 04:00 Acetaminophen (Tylenol Tab) 650 mg Q4H PRN PO PAIN AND OR ELEVATED TEMP Last administered on 04/09/17 17:52; Admin Dose 650 MG; Start 04/09/17 at 04:00 Famotidine (Pepcid) 20 mg AM GTB Last administered on 04/16/17 08:14; Admin Dose 20 MG; Start 04/09/17 at 09:00 Miscellaneous Information 1 ea NOTE XX ; Start 04/09/17 at 05:00 Glucose (Glutose) 15 gm Q15M PRN PO DECREASED GLUCOSE; Start 04/09/17 at 05:00 Glucose (Glutose) 22.5 gm Q15M PRN PO DECREASED GLUCOSE; Start 04/09/17 at 05:00 Dextrose (D50w Syringe) 25 ml Q15M PRN IV DECREASED GLUCOSE; Start 04/09/17 at 05:00 Dextrose (D50w Syringe) 50 ml Q15M PRN IV DECREASED GLUCOSE; Start 04/09/17 at 05:00 Glucagon (Glucagen) 1 mg Q15M PRN IM DECREASED GLUCOSE; Start 04/09/17 at 05:00 Glucose (Glutose) 15 gm Q15M PRN BUCCAL DECREASED GLUCOSE; Start 04/09/17 at 05: 00 Diagnostic Test (Pha) (Accu-Chek) 1 ea 02 XX Last administered on 04/11/17 02: 44; Admin Dose 1 EA; Start 04/10/17 at 02:00 Clonidine HCl (Catapres-Tts 1 Patch) 1 patch Tu@22 TRANSDERM Last administered on 04/10/17 22:23; Admin Dose 1 PATCH; Start 04/10/17 at 22:00 Carvedilol (Coreg) 6.25 mg BID PO Last administered on 04/16/17 08:15; Admin Dose 6.25 MG; Start 04/12/17 at 21:00 Lisinopril (Zestril) 10 mg DAILY PO Last administered on 04/16/17 08:14; Admin Dose 10 MG; Start 04/13/17 at 09:00 Insulin Glargine (Lantus) 16 unit DAILY@20 SC Last administered on 04/15/17 20: 53; Admin Dose 16 UNIT; Start 04/14/17 at 20:00 SALUD GARCIA MD Apr 16, 2017 19:47
[2017-04-16 20:00] VITALS: BP 144/70; RESP 16
[2017-04-16] MEDS: QUETIAPINE 100 MG TAB PO SCH (20:15)
[2017-04-16] MEDS: MIRTAZAPINE 15 MG TAB GTB SCH (20:15)
[2017-04-16] MEDS: ATORVASTATIN 20 MG TAB PO SCH (20:15)
[2017-04-16] MEDS: MEGESTROL (40 MG/ML) 10ML CUP PO SCH (20:16)
[2017-04-16] MEDS: INSULIN GLARGINE [LANtus] 3 ML PEN SC SCH (20:17)
[2017-04-17] MEDS: ACCU-CHEK XX SCH (02:00)
[2017-04-17 07:37] VITALS: BP 159/68; RESP 20
[2017-04-17] MEDS: INSULIN ASPART [NOVOLOG] 3 ML PEN SC SCH ×3 (07:49→17:13)
[2017-04-17] MEDS: MEMANTINE 10 MG TAB PO SCH (09:08)
[2017-04-17] MEDS: MEGESTROL (40 MG/ML) 10ML CUP PO SCH (09:08)
[2017-04-17] MEDS: FAMOTIDINE 20 MG TAB GTB SCH (09:08)
[2017-04-17] MEDS: BUSPIRONE 5 MG TAB GTB SCH (09:08)
[2017-04-17] MEDS: LISINOPRIL 10 MG TAB PO SCH (09:09)
[2017-04-17] MEDS: LEVOTHYROXINE 75 MCG TAB GTB SCH (09:11)
--- NOTE | 2017-04-17 13:49 | PDOCDIS ---
Discharge Instructions DIAGNOSIS Discharge Diagnosis Generalized weakness Dehydration Hypertension Dementia Type 2 diabetes mellitus Anemia of chronic disease Anorexia CONDITION Patient Condition: Good HOME CARE INSTRUCTIONS: Diet Instructions: Reduced CalorieSpecial Diet: tube feeding ACTIVITY: Activity Restrictions: Slowly Increase Activity Rest between Activity Avoid heavy lifting Bathing Restrictions: Shower FOLLOW UP/APPOINTMENTS Follow-up Plan Dr Gaines in 2 weeks. Home health to draw CBC and CMP in 1 week. SALUD GARCIA MD Apr 17, 2017 13:49
--- NOTE | 2017-04-17 13:55 | DS ---
Date/Time of Note Date/Time of Note DATE: 04/17/17 TIME: 13:55 Discharge Summary Admission/Discharge Info Admit Date/Time Apr 09, 2017 at 02:20 Discharge Date/Time Discharge Diagnosis Generalized weakness Dehydration Hypertension Dementia Type 2 diabetes mellitus Anemia of chronic disease Anorexia Hx of Present Illness This 86-year-old female was brought in by paramedics to the emergency room yesterday because of generalized weakness and increasing lethargy. The patient has a history of dementia and is unable to give an accurate history. The patient is Moroccan-speaking only. There is a java sql developer in the room with the patient. She is Moroccan-speaking. Through a construction project coordinator I was able to communicate with the java sql developer. I also spoke to the patient's daughter. The patient is well known to me. The patient has recurrent urinary tract infections and last had a culture done as an outpatient by the visiting nurses and she was found to have greater than 100,000 of E. coli sensitive to Macrodantin. Patient was started on Macrobid 100 mg twice a day and then was supposed to be on 50 mg once a day as this depression for recurrent infections. The patient was on the initial antibiotic treatment I am not sure if she was getting 50 mg a day thereafter. The patient at this time denies any pain. She has not had any chest pain shortness of breath. The patient is mostly bed ridden or in a wheelchair. She does have a gastric feeding tube in place; however, it is not being used much as the patient is able to swallow. The daughter tells me they use it to give her water because she does not drink enough water. Hospital Course Impression: 1. this patient was admitted through the emergency room after she presented with generalized weakness and increasing lethargy. The patient is awake and responsive. She denies pain specifically no abdominal pain. Her abdomen is soft and nontender. Patient seems to be tolerating tube feedings. Her grandson would like me to start Megace because she was on this before and it helped her appetite. 2. Type 2 diabetes mellitus. The blood sugar seems to be coming under control. 3. Dementia 4. Recurrent urinary tract infections . Her urine is now no growth. 5. 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 She is able to swallow without a problem. The family says they use the G-tube to give her water. Dr Uribe changed her G tube . She is not eating and is now getting tube feeding which she tolerates. 6. History of anxiety depression 7. Neurogenic bladder. 8. Chronic anemia 9. She is hypernatremia , is corrected. Plan: 1. Continue tube feeding with water flushes. 2. Adjust sliding scale insulin. Increase Lantus insulin at night. 3. I will start the patient on Megace as per the grandson's request. 4. Discharge planning Home Meds Reported Medications Atorvastatin Calcium* (Atorvastatin Calcium*) 20 Mg Tablet, 20 MG PO QHS, #30 TAB 07/19/16 Quetiapine Fumarate* (Quetiapine Fumarate*) 100 Mg Tablet, 100 MG PO HS, TAB 07/19/16 Lisinopril* (Lisinopril*) 2.5 Mg Tablet, 2.5 MG PO DAILY, #30 TAB 07/19/16 Furosemide* (Furosemide*) 20 Mg Tablet, 20 MG PO DAILY, #60 TAB 07/19/16 Memantine* (Namenda*) Unknown Strength Tablet, PO DAILY, #30 TAB 03/26/16 Mirtazapine* (Mirtazapine*) 7.5 Mg Tablet, 7.5 MG GTB BID, TAB 03/26/16 Insulin Glargine* (Lantus*) 100 Unit/Ml Soln, 6 UNITS SC QHS Y for ELEVATED GLUCOSE, #1 VIAL 03/26/16 Insulin Aspart* (Novolog Insulin Vial*) 100 U/Ml Vial, 0 SC SLIDING SCALE AC, VIAL 09/22/15 Carvedilol* (Carvedilol*) 3.125 Mg Tablet, 3.125 MG GTB BID, TAB 09/22/15 Buspirone Hcl* (Buspar*) 5 Mg Tab, 5 MG GTB BID, TAB 09/22/15 Multivit &Minerals/Ferrous Fum (MULTIVITAMIN LIQUID) 9 Mg/15 Ml Liquid, 30 ML GTB DAILY 06/13/15 Venlafaxine Hcl* (Venlafaxine Hcl ER*) 75 Mg Cap.er.24h, 75 MG GTB BID, CAP 06/13/15 Levothyroxine Sodium* (Synthroid*) 75 Mcg Tablet, 75 MCG GTB DAILY, TAB 05/01/15 Gabapentin* (Neurontin*) 100 Mg Capsule, 100 MG GTB TID, CAP 05/01/15 Primary Care Provider Juan R Garcia MD Pending Labs Laboratory Tests Test 04/16/17 17:19 04/16/17 20:09 04/17/17 07:44 04/17/17 11:45 Bedside Glucose 241mg/dL (70-220) 174mg/dL (70-220) 257mg/dL (70-220) 183mg/dL (70-220) JUAN R GARCIA MD Apr 17, 2017 13:55
--- NOTE | 2017-04-17 14:01 | CONS ---
Date/Time of Note Date/Time of Note DATE: 04/17/17 TIME: 13:57 Assessment/Plan Assessment/Plan Chief Complaint/Hosp Course Impression: 1. this patient was admitted through the emergency room after she presented with generalized weakness and increasing lethargy. The patient is awake and responsive. She denies pain specifically no abdominal pain. Her abdomen is soft and nontender. Patient seems to be tolerating tube feedings. Her grandson would like me to start Megace because she was on this before and it helped her appetite. 2. Type 2 diabetes mellitus. The blood sugar seems to be coming under control. 3. Dementia 4. Recurrent urinary tract infections . Her urine is now no growth. 5. 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 She is able to swallow without a problem. The family says they use the G-tube to give her water. Dr Uribe changed her G tube . She is not eating and is now getting tube feeding which she tolerates. 6. History of anxiety depression 7. Neurogenic bladder. 8. Chronic anemia 9. She is hypernatremia , is corrected. Plan: This patient is going to be discharged to home today with home health. She will need tube feeding, Diabetasourse , or equivalent. She will be getting the tube feeding at 30 mL's per hour continuous. She will be needing this for 99 months. The patient needs this because otherwise she is not taking in enough nutrients and water by mouth. She came into the hospital dehydrated. She is now doing well and is now rehydrated. This patient has type 2 diabetes mellitus. Her blood sugars have been poorly controlled. She has required variable doses of insulin and increasing doses of Lantus insulin. She needs a diabetic formula tube feeding in order to control this problem. Problems: Consultation Date/Type/Reason Admit Date/Time Apr 09, 2017 at 02:20 Initial Consult Date 24 HR Interval Summary Free Text/Dictation This patient is doing well and is going to be discharged to home today with home health care and with a tube feeding Constitutional: no complaints Exam/Review of Systems Vital Signs Vitals Vital Signs Date Time Temp Pulse Resp B/P Pulse Ox O2 Delivery O2 Flow Rate FiO2 04/17/17 07:37 97.3 77 20 159/68 98 Intake and Output 04/16/17 04/16/17 04/17/17 15:00 23:00 07:00 Intake Total 760 ml 620 ml Balance 760 ml 620 ml Exam Constitutional: alert Psych: confusion Neck: supple Respiratory: clear to auscultation, normal air movement Cardiovascular: regular rate and rhythm Gastrointestinal: soft Musculoskeletal: nl extremities to inspection Results Result Diagram: 04/16/1730 04/16/17 0930 Results 24 hrs Laboratory Tests Test 04/16/17 17:19 04/16/17 20:09 04/17/17 07:44 04/17/17 11:45 Bedside Glucose 241 H 174 257 H 183 Medications Medications Current Medications Atorvastatin Calcium (Lipitor) 20 mg QHS PO Last administered on 04/16/17 20: 15; Admin Dose 20 MG; Start 04/09/17 at 21:00 Buspirone HCl (Buspar) 5 mg BID GTB Last administered on 04/17/17 09:08; Admin Dose 5 MG; Start 04/09/17 at 09:00 Mirtazapine (Remeron) 7.5 mg HS GTB Last administered on 04/16/17 20:15; Admin Dose 7.5 MG; Start 04/09/17 at 21:00 Quetiapine Fumarate (Seroquel) 100 mg HS PO Last administered on 04/16/17 20: 15; Admin Dose 100 MG; Start 04/09/17 at 21:00 Memantine (Namenda) 10 mg DAILY PO Last administered on 04/17/17 09:08; Admin Dose 10 MG; Start 04/09/17 at 09:00 Ondansetron HCl (Zofran Inj) 4 mg Q6H PRN IV NAUSEA AND/OR VOMITING Last administered on 04/10/17 20:23; Admin Dose 4 MG; Start 04/09/17 at 04:00 Acetaminophen (Tylenol Tab) 650 mg Q4H PRN PO PAIN AND OR ELEVATED TEMP Last administered on 04/09/17 17:52; Admin Dose 650 MG; Start 04/09/17 at 04:00 Famotidine (Pepcid) 20 mg AM GTB Last administered on 04/17/17 09:08; Admin Dose 20 MG; Start 04/09/17 at 09:00 Miscellaneous Information 1 ea NOTE XX ; Start 04/09/17 at 05:00 Glucose (Glutose) 15 gm Q15M PRN PO DECREASED GLUCOSE; Start 04/09/17 at 05:00 Glucose (Glutose) 22.5 gm Q15M PRN PO DECREASED GLUCOSE; Start 04/09/17 at 05:00 Dextrose (D50w Syringe) 25 ml Q15M PRN IV DECREASED GLUCOSE; Start 04/09/17 at 05:00 Dextrose (D50w Syringe) 50 ml Q15M PRN IV DECREASED GLUCOSE; Start 04/09/17 at 05:00 Glucagon (Glucagen) 1 mg Q15M PRN IM DECREASED GLUCOSE; Start 04/09/17 at 05:00 Glucose (Glutose) 15 gm Q15M PRN BUCCAL DECREASED GLUCOSE; Start 04/09/17 at 05: 00 Diagnostic Test (Pha) (Accu-Chek) 1 ea 02 XX Last administered on 04/11/17 02: 44; Admin Dose 1 EA; Start 04/10/17 at 02:00 Clonidine HCl (Catapres-Tts 1 Patch) 1 patch Tu@22 TRANSDERM Last administered on 04/10/17 22:23; Admin Dose 1 PATCH; Start 04/10/17 at 22:00 Carvedilol (Coreg) 6.25 mg BID PO Last administered on 04/17/17 09:09; Admin Dose 6.25 MG; Start 04/12/17 at 21:00 Lisinopril (Zestril) 10 mg DAILY PO Last administered on 04/17/17 09:09; Admin Dose 10 MG; Start 04/13/17 at 09:00 Insulin Glargine (Lantus) 16 unit DAILY@20 SC Last administered on 04/16/17 20 :17; Admin Dose 16 UNIT; Start 04/14/17 at 20:00 Megestrol Acetate (Megace Susp) 400 mg BID PO Last administered on 04/17/17 09 :08; Admin Dose 400 MG; Start 04/16/17 at 21:00 SALUD GARCIA MD Apr 17, 2017 14:01
== END 2017-04-17 18:45 | disposition home health service (06) | DRG 641 ==
LOC: E/R 20:48 → MS2 04-09 02:20
PROVIDERS: ADMIT Internal Medicine; ATTEND Internal Medicine
PROC: 0D20XUZ Change Feeding Device in Upper Intestinal Tract, External Approach (ICD-10-PCS; principal; 2017-04-09)
DX: E87.0 Hyperosmolality and hypernatremia (principal); E86.0 Dehydration; R63.0 Anorexia; F03.90 Unspecified dementia, unspecified severity, without behavioral disturbance, psychotic disturbance, mood disturbance, and anxiety; N31.9 Neuromuscular dysfunction of bladder, unspecified; Z93.1 Gastrostomy status; T85.518A Breakdown (mechanical) of other gastrointestinal prosthetic devices, implants and grafts, initial encounter; E11.9 Type 2 diabetes mellitus without complications; D64.89 Other specified anemias; R53.1 Weakness; Z68.30 Body mass index [BMI] 30.0-30.9, adult; G31.84 Mild cognitive impairment of uncertain or unknown etiology; F17.200 Nicotine dependence, unspecified, uncomplicated
CPT/HCPCS: 36415; 71010; 80048; 80053; 81001; 81003; 82040; 82306; 82652; 82962; 83036; 83605; 83735; 83880; 84100; 84439; 84443; 84484; 85025; 87040; 87086; 92526; 92610; 93005; 93306; 96374; 97003; 97116; 97167; 97530; 97535; J0692; J1815; J2405; J7030

== ENCOUNTER 2017-05-07 08:49 | Inpatient (IN) | payer MEDICARE, BC ==
[~2017-05-07] VITALS: Ht 152.4 cm; Wt 61.0 kg
[~2017-05-07 08:49] MED LIST changes: -FURO20TA3 PO
[2017-05-07] MEDS ORDERED: CEFEPIME 2GM/50 ML (PMX) 50 ML IVPB STA (09:13)
[2017-05-07] MEDS ORDERED: SODIUM CHLORIDE 0.9% 1L BAG IV* STA (09:13)
[2017-05-07] MEDS ORDERED: VANCOMYCIN 1 GM (PMX) 250 ML IVPB ONE (09:30)
--- NOTE | 2017-05-07 09:41 | ERA ---
ER Documentation Chief Complaint Date/Time DATE: 05/07/17 TIME: 09:37 Chief Complaint weakness x 1 week HPI This is an 86-year-old female brought in by her gauge and instrument inspector for weakness that is progressing over the past 7 days. The patient has had no cough no nausea vomiting diarrhea. Does have a bit of a decrease in appetite. Today. The patient is less responsive and seems to be more sleepy according to the caregiver. The patient is arousable and does not have any specific complaints. There is very limited history as the patient cannot converse much and the caregiver is not much help with symptom review. Patient is being treated currently for urinary tract infection with Keflex times suspecting this is the source of her problem ROS All systems reviewed and are negative except as per history of present illness. Medications Home Meds Reported Medications Atorvastatin Calcium* (Atorvastatin Calcium*) 20 Mg Tablet, 20 MG PO QHS, #30 TAB 07/19/16 Quetiapine Fumarate* (Quetiapine Fumarate*) 100 Mg Tablet, 100 MG PO HS, TAB 07/19/16 Lisinopril* (Lisinopril*) 2.5 Mg Tablet, 2.5 MG PO DAILY, #30 TAB 07/19/16 Memantine* (Namenda*) Unknown Strength Tablet, PO DAILY, #30 TAB 03/26/16 Mirtazapine* (Mirtazapine*) 7.5 Mg Tablet, 7.5 MG GTB BID, TAB 03/26/16 Insulin Glargine* (Lantus*) 100 Unit/Ml Soln, 6 UNITS SC QHS Y for ELEVATED GLUCOSE, #1 VIAL 03/26/16 Insulin Aspart* (Novolog Insulin Vial*) 100 U/Ml Vial, 0 SC SLIDING SCALE AC, VIAL 09/22/15 Carvedilol* (Carvedilol*) 3.125 Mg Tablet, 3.125 MG GTB BID, TAB 09/22/15 Buspirone Hcl* (Buspar*) 5 Mg Tab, 5 MG GTB BID, TAB 09/22/15 Multivit &Minerals/Ferrous Fum (MULTIVITAMIN LIQUID) 9 Mg/15 Ml Liquid, 30 ML GTB DAILY 06/13/15 Venlafaxine Hcl* (Venlafaxine Hcl ER*) 75 Mg Cap.er.24h, 75 MG GTB BID, CAP 06/13/15 Levothyroxine Sodium* (Synthroid*) 75 Mcg Tablet, 75 MCG GTB DAILY, TAB 05/01/15 Gabapentin* (Neurontin*) 100 Mg Capsule, 100 MG GTB TID, CAP 05/01/15 Allergies Allergies: Coded Allergies: No Known Drug Allergies (Verified Allergy, Mild, 07/19/16) PMhx/Soc History of Surgery: Yes (G-Tube placement; cholecystectomy; right leg surgery; left elbow surgery ) Anesthesia Reaction: No (unknown ) Hx Neurological Disorder: No (unknown ) Hx Respiratory Disorders: No (unknown ) Hx Cardiac Disorders: Yes (CHF; heart murmur ) Hx Psychiatric Problems: Yes (dementia; anxiety; depression ) Hx Miscellaneous Medical Probl: Yes (dementia, anxiety, depression, +g tub, + pressure ulcers to b/l ulcers) Hx Alcohol Use: No (unknown ) Hx Substance Use: No (unknown ) Hx Tobacco Use: No (unknown ) Smoking Status: Never smoker FmHx Family History: No coronary disease Physical Exam Vitals Vital Signs Date Time Temp Pulse Resp B/P Pulse Ox O2 Delivery O2 Flow Rate FiO2 05/07/17 09:34 Nasal Cannula 2 05/07/17 09:03 99.4 57 15 92/48 96 Room Air 05/07/17 08:54 99.4 58 15 92/48 96 Physical Exam Const: Well-developed, well-nourished Head: Atraumatic, normocephalic Eyes: Normal Conjunctiva, PERRLA, EOMI, normal sclera, no nystagmus ENT: Normal External Ears, Nose and Mouth, moist mucus membranes. Neck: Full range of motion. No meningismus, no lymphadenopathy. Resp: Clear to auscultation bilaterally, no wheezing, rhonchi, rales Cardio: Bradycardia, no murmurs, S1 S2 present] Abd: Soft, non tender x 4, non distended. Normal bowel sounds, no guarding or rebound, no pulsitile abdominal masses or bruits Skin: No petechiae or rashes, no ecchymosis , no maculopapular rash Back: No midline or flank tenderness Ext: No cyanosis, or edema, FROM x 4, normal inspection, neurovascularly intact x 4 Neur: Sleepy but arousable minimal conversation, STR 4/5 x 4, sensation intact x 4, no focal findings, cerebellum intact Psych: Normal Mood and Affect Result Diagram: 05/07/17 0934 05/07/17 0934 Results 24 hrs Laboratory Tests Test 05/07/17 09:34 05/07/17 09:49 White Blood Count 14.110^3/ul Red Blood Count 3.0910^6/ul Hemoglobin 9.4g/dl Hematocrit 28.9% Mean Corpuscular Volume 93.5fl Mean Corpuscular Hemoglobin 30.4pg Mean Corpuscular Hemoglobin Concent 32.5g/dl Red Cell Distribution Width 13.9% Platelet Count 15804^3/UL Mean Platelet Volume 12.1fl Neutrophils % 77.0% Lymphocytes % 14.1% Monocytes % 6.0% Eosinophils % 2.1% Basophils % 0.3% Nucleated Red Blood Cells % 0.0/100WBC Neutrophils # 10.810^3/ul Lymphocytes # 2.010^3/ul Monocytes # 0.910^3/ul Eosinophils # 0.310^3/ul Basophils # 0.010^3/ul Nucleated Red Blood Cells # 0.010^3/ul Prothrombin Time 16.3Sec Prothrombin Time Ratio 1.3 INR International Normalized Ratio 1.30 Activated Partial Thromboplast Time 31.5Sec Sodium Level 143mmol/L Potassium Level 5.3mmol/L Chloride Level 104mmol/L Carbon Dioxide Level 23mmol/L Anion Gap 21 Blood Urea Nitrogen 48mg/dl Creatinine 1.84mg/dl Glucose Level 118mg/dl Lactic Acid Level 1.4mmol/L Calcium Level 9.5mg/dl Total Bilirubin 0.3mg/dl Direct Bilirubin 0.00mg/dl Indirect Bilirubin 0.3mg/dl Aspartate Amino Transf (AST/SGOT) 19IU/L Alanine Aminotransferase (ALT/SGPT) 41IU/L Alkaline Phosphatase 66IU/L Troponin I < 0.012ng/ml Total Protein 7.7g/dl Albumin 4.0g/dl Globulin 3.70g/dl Albumin/Globulin Ratio 1.08 Urine Color YELLOW Urine Clarity CLOUDY Urine pH 5.0 Urine Specific [place] 1.016 Urine Ketones NEGATIVEmg/dL Urine Nitrite NEGATIVEmg/dL Urine Bilirubin NEGATIVEmg/dL Urine Urobilinogen NEGATIVEmg/dL Urine Leukocyte Esterase NEGATIVELeu/ul Urine Microscopic RBC 0/HPF Urine Microscopic WBC 1/HPF Urine Squamous Epithelial Cells FEW/HPF Urine Bacteria FEW/HPF Urine Mucus FEW/HPF Urine Hemoglobin NEGATIVEmg/dL Urine Glucose NEGATIVEmg/dL Urine Total Protein NEGATIVEmg/dl Current Medications Medications (Trade) Dose Ordered Sig/Marck Route PRN Reason Start Time Stop Time Status Last Admin Dose Admin Sodium Chloride 1900 ml 1,900 ml BOLUS OVER 2 HOURS STAT IV* 05/07/17 09:13 05/07/17 09:17 DC 05/07/17 09:42 Cefepime HCl 50 ml @ 100 mls/hr ONCE STAT IVPB 05/07/17 09:13 05/07/17 09:42 DC 05/07/17 09:42 Vancomycin HCl (Vancocin) 250 ml @ 125 mls/hr ONCE ONCE IVPB 05/07/17 09:30 05/07/17 11:29 DC 05/07/17 10:31 Procedures/MDM EKG: Rate/Rhythm: Sinus bradycardia with first-degree AV block, heart rate 56, left axis deviation QRS, ST, QT: NORMAL AK, QRS, QT] Impression: Abnormal EKG: PROCEDURE: CT Brain without contrast. CLINICAL INDICATION: Weakness, altered mental status TECHNIQUE: Routine CT scan of the brain was performed on a high resolution multi detector scanner without intravenous contrast. One or more of the following dose reduction techniques were used: Automated exposure control; Adjustment of the mA and/or kV according to patient size; Use of iterative reconstruction technique. CTDI = 43 mGy. DLP = 630 mGy-cm. COMPARISON: CT brain 02/02/2017 FINDINGS: Hemorrhage: No evidence of intracranial hemorrhage. Acute ischemic changes: No evidence of acute ischemic changes. Mass effect/Midline shift: None. Parenchymal volume: Mild central parenchymal volume loss is evident. Ventricular system: Concordant with parenchymal volume. 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 There are multiple areas of low attenuation change within the supratentorial white matter most compatible with moderate chronic microvascular ischemic changes. Atherosclerotic calcifications of the cavernous portions of both internal carotid arteries are present. Extracranial soft tissues: Unremarkable. Calvarium: No fractures. Paranasal sinuses: Visualized paranasal sinuses are clear. Mastoid air cells: Visualized mastoid air cells are clear. IMPRESSION: No acute intracranial abnormalities. 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 MRI of the brain may be useful for further evaluation. RPTAT: AADD .Mathieu Batres MD, Date Time Electronically viewed and signed by .Mathieu Batres MD, MD on 05/07/2017 10:34 .B/ CC: KRISSY JONES DO PROCEDURE: XR Chest. CLINICAL INDICATION: Possible Sepsis TECHNIQUE: Single frontal view of the chest was obtained COMPARISON: Chest x-ray 07/23/2016 FINDINGS: There are persistent low lung volumes. The cardiac silhouette is mildly enlarged. There are atherosclerotic calcifications of the thoracic aorta. Redemonstrated are ill-defined opacities i at the left lung base, not significantly changed compared to prior study. The right lung remains clear. No pneumothorax is identified. There are degenerative changes of the visualized spine. IMPRESSION: 1. No significant change compared to prior chest x-ray of 07/23/2016 with persistent low lung volumes and persistent left basilar ill-defined opacity which given stability over time is suggestive of chronic scarring. Superimposed infectious or other process cannot be completely excluded. 2. Thoracic aortic atherosclerotic disease. RPTAT: PP Physician Miquel Date Time Electronically viewed and signed by Physician Miquel on 05/07/2017 10: 08 RC/ CC: KRISSY JONES DO Patient's lactic acid is 1.4. CT scan of brain does not show any acute process however MRI may need to be done to rule out stroke. No gross evidence of pneumonia. Urine is infected. Patient does have mild leukocytosis with some anemia/pancytopenia. There is some renal insufficiency as well We will admit to the primary care physician for MRI of brain, observation, IV fluids Patient's had blood cultures and antibiotic Departure Diagnosis: Primary Impression: Altered mental status Qualified Code: R41.82 - Altered mental status, unspecified altered mental status type Additional Impressions: Pancytopenia Leukocytosis Qualified Code: D72.829 - Leukocytosis, unspecified type Condition: KRISSY Ryan DO May 07, 2017 09:41
[2017-05-07 10:01] LABS: BASOPHILS % 0.3 % (0.0-2.0); EOSINOPHILS # 0.3 10^3/ul (0.0-0.5); EOSINOPHILS % 2.1 % (0.0-7.0); HEMATOCRIT 28.9 % (37.0-47.0); HEMOGLOBIN 9.4 g/dl (12.0-16.0); LYMPHOCYTES % 14.1 % (15.0-51.0); MEAN CORPUSCULAR HEMOGLOBIN 30.4 pg (29.0-33.0); MEAN CORPUSCULAR HGB CONC 32.5 g/dl (32.0-37.0); MEAN CORPUSCULAR VOLUME 93.5 fl (82.0-101.0); MEAN PLATELET VOLUME 12.1 fl (7.4-10.4); MONOCYTE # 0.9 10^3/ul (0.3-0.9); NEUTROPHIL # 10.8 10^3/ul (1.6-7.5); PLATELET COUNT 132 10^3/UL (140-415); RED BLOOD COUNT 3.09 10^6/ul (4.20-5.40); RED CELL DISTRIBUTION WIDTH 13.9 % (11.5-14.5); WHITE BLOOD COUNT 14.1 10^3/ul (4.8-10.8)
--- NOTE | 2017-05-07 10:09 | RADRPT ---
PROCEDURE: XR Chest. CLINICAL INDICATION: Possible Sepsis TECHNIQUE: Single frontal view of the chest was obtained COMPARISON: Chest x-ray 07/23/2016 FINDINGS: There are persistent low lung volumes. The cardiac silhouette is mildly enlarged. There are atherosclerotic calcifications of the thoracic aorta. Redemonstrated are ill-defined opacities i at the left lung base, not significantly changed compared to prior study. The right lung remains clear. No pneumothorax is identified. There are degenerative changes of the visualized spine. IMPRESSION: 1. No significant change compared to prior chest x-ray of 07/23/2016 with persistent low lung volume s and persistent left basilar ill-defined opacity which given stability over time is suggestive of c hronic scarring. Superimposed infectious or other process cannot be completely excluded. 2. Thoracic aortic atherosclerotic disease. RPTAT: PP Physician Miquel Date Time Electronically viewed and signed by Physician Miquel on 05/07/2017 10:08 RC/
[2017-05-07 10:22] LABS: ADD UMIC YES; UR ASCORBIC ACID NEGATIVE (NEGATIVE); UR BACTERIA FEW /HPF (NONE SEEN); UR BILIRUBIN (Dip) NEGATIVE (NEGATIVE); UR BLOOD (Dip) NEGATIVE (NEGATIVE); UR CLARITY CLOUDY (CLEAR); UR COLOR YELLOW (YELLOW); UR GLUCOSE (Dip) NEGATIVE (NEGATIVE); UR KETONES (Dip) NEGATIVE (NEGATIVE); UR LEUKOCYTE ESTERASE (Dip) NEGATIVE Leu/ul (NEGATIVE); UR MUCUS FEW /HPF (NONE SEEN); UR NITRITE (Dip) NEGATIVE (NEGATIVE); UR RBC 0 /HPF (0-5); UR SPECIFIC GRAVITY (Dip) 1.016 (1.003-1.030); UR SQUAMOUS EPITHELIAL CELL FEW /HPF (FEW); UR TOTAL PROTEIN (Dip) NEGATIVE (NEGATIVE); UR UROBILINOGEN (Dip) NEGATIVE (NEGATIVE)
[2017-05-07 10:22] LABS: ALANINE AMINOTRANSFERASE 41 IU/L (13-69); ALBUMIN/GLOBULIN RATIO 1.08; ALKALINE PHOSPHATASE 66 IU/L (42-121); ANION GAP 21 (8-16); ASPARTATE AMINO TRANSFERASE 19 IU/L (15-46); BILIRUBIN,INDIRECT 0.3 mg/dl (0-1.1); BILIRUBIN,TOTAL 0.3 mg/dl (0.2-1.3); BLOOD UREA NITROGEN 48 mg/dl (7-20); CALCIUM 9.5 mg/dl (8.4-10.2); CARBON DIOXIDE 23 mmol/L (21-31); CHLORIDE 104 mmol/L (97-110); CREATININE 1.84 mg/dl (0.44-1.00); GLUCOSE 118 mg/dl (70-220); POTASSIUM 5.3 mmol/L (3.5-5.1); SODIUM 143 mmol/L (135-144); TOTAL PROTEIN 7.7 g/dl (6.1-8.1)
[2017-05-07 10:26] LABS: INR 1.3; PROTIME 16.3 Sec (12.2-14.2); PT RATIO 1.3
[2017-05-07 10:27] LABS: PARTIAL THROMBOPLASTIN TIME 31.5 Sec (25.0-35.0)
[2017-05-07 10:33] LABS: TROPONIN-I < 0.012 ng/ml (0.00-0.12)
--- NOTE | 2017-05-07 10:34 | RADRPT ---
PROCEDURE: CT Brain without contrast. CLINICAL INDICATION: Weakness, altered mental status TECHNIQUE: Routine CT scan of the brain was performed on a high resolution multi detector scanner without intravenous contrast. One or more of the following dose reduction techniques were used: Auto mated exposure control; Adjustment of the mA and/or kV according to patient size; Use of iterative r econstruction technique. CTDI = 43 mGy. DLP = 630 mGy-cm. COMPARISON: CT brain 02/02/2017 FINDINGS: Hemorrhage: No evidence of intracranial hemorrhage. Acute ischemic changes: No evidence of acute ischemic changes. Mass effect/Midline shift: None. Parenchymal volume: Mild central parenchymal volume loss is evident. Ventricular system: Concordant with parenchymal volume. 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 There are multiple areas of low attenuation change within the supratentorial white matter most compatible wit h moderate chronic microvascular ischemic changes. Atherosclerotic calcifications of the cavernous portions of both internal carotid arteries are prese nt. Extracranial soft tissues: Unremarkable. Calvarium: No fractures. Paranasal sinuses: Visualized paranasal sinuses are clear. Mastoid air cells: Visualized mastoid air cells are clear. IMPRESSION: No acute intracranial abnormalities. Moderate chronic-appearing microvascular ischemic changes of the supratentorial white matter with sm all chronic infarct of the left frontal lobe white matter are unchanged. MRI of the brain may be useful for further evaluation. RPTAT: AADD .Mathieu Batres MD, MD Date Time Electronically viewed and signed by .Mathieu Batres MD, MD on 05/07/2017 10:34 .B/
[2017-05-07] MEDS ORDERED: SOD CHLORIDE 0.9% 1,000 ML IV SCH (11:40)
[2017-05-07 11:55] VITALS: TEMP 98.6
[2017-05-07] MEDS ORDERED: ONDANSETRON 4 MG INJ IV PRN ×2 (12:00→14:00)
[2017-05-07] MEDS ORDERED: ACETAMINOPHEN 325 MG TAB PO PRN ×2 (12:00→14:00)
[2017-05-07 12:44] VITALS: Ht 152.4 cm; Wt 61.0 kg
[2017-05-07 13:08] VITALS: PULSE 74
[2017-05-07] MEDS ORDERED: NACL 0.9% 3 ML SYG IV SCH (14:00)
[2017-05-07] MEDS ORDERED: MAGNESIUM HYDROXIDE 30ML CUP PO PRN (14:00)
[2017-05-07 15:26] VITALS: BP 100/55; RESP 20
[2017-05-07 16:11] VITALS: PULSE 66
[2017-05-07] MEDS: SOD CHLORIDE 0.45% 1,000 ML IV SCH (17:18)
[2017-05-07] MEDS: INSULIN ASPART [NOVOLOG] 3 ML PEN SC SCH ×2 (17:33→20:54)
[2017-05-07 20:00] VITALS: BP 104/52; RESP 18
[2017-05-07 20:14] VITALS: PULSE 63
[2017-05-07] MEDS: GABAPENTIN 100 MG CAP GTB SCH (20:51)
[2017-05-07] MEDS: ATORVASTATIN 20 MG TAB PO SCH (20:51)
[2017-05-07] MEDS: VENLAFAXINE (XR) 75 MG CAP PO SCH (20:51)
[2017-05-07] MEDS: QUETIAPINE 100 MG TAB PO SCH (20:51)
[2017-05-07] MEDS: BUSPIRONE 5 MG TAB GTB SCH (20:51)
[2017-05-07] MEDS: MIRTAZAPINE 15 MG TAB GTB SCH (20:52)
[2017-05-07] MEDS: INSULIN GLARGINE [LANtus] 3 ML PEN SC SCH (20:57)
[2017-05-08] VITALS (13 sets, daily range): BP systolic 108–143; BP diastolic 53–98; PULSE 53–66; RESP 18–19
[2017-05-08] MEDS: ACCU-CHEK XX SCH (01:20)
[2017-05-08] MEDS ORDERED: ACCU-CHEK XX SCH (02:00)
[2017-05-08] MEDS: SOD CHLORIDE 0.45% 1,000 ML IV SCH ×3 (02:30→13:06)
[2017-05-08] MEDS: LEVOTHYROXINE 75 MCG TAB GTB SCH (05:43)
[2017-05-08] MEDS: INSULIN ASPART [NOVOLOG] 3 ML PEN SC SCH ×4 (08:00→20:31)
--- NOTE | 2017-05-08 08:14 | PN ---
Date/Time of Note Date/Time of Note DATE: 05/08/17 TIME: 08:05 Assessment/Plan VTE Prophylaxis VTE Prophylaxis Intervention: SCD's Lines/Catheters [facility]from [facility] Saline Lock Urinary Cath still in place: Yes Reason Cath still needed: urinary retention Assessment/Plan Chief Complaint/Hosp Course 1. she was admitted with lethargy and generalized weakness . She seems better today . Will check swallowing and determine how much she is eating . 2. dementia 3. DM 4. HTN 5. ARF due to dehydration . Labs are pending .She is getting IV fluids Problems: Subjective 24 Hr Interval Summary Free Text/Dictation she is sleeping . She rouses easily to verbal stimuli . Feels well . no complaints . Constitutional: no complaints Respiratory: no complaints Cardiovascular: no complaints Gastrointestinal: no complaints Genitourinary: no complaints Musculoskeletal: no complaints Exam/Review of Systems Vital Signs Vitals Vital Signs Date Time Temp Pulse Resp B/P Pulse Ox O2 Delivery O2 Flow Rate FiO2 05/08/17 04:19 57 05/08/17 04:00 98.6 18 108/55 93 05/07/17 22:00 Nasal Cannula 2.0 Intake and Output 05/07/17 05/07/17 05/08/17 15:00 23:00 07:00 Intake Total 250 ml 240 ml Output Total 350 ml 1450 ml Balance -100 ml -1210 ml Exam Constitutional: alert Psych: confusion Respiratory: clear to auscultation Cardiovascular: regular rate and rhythm Gastrointestinal: non-tender, soft Musculoskeletal: nl extremities to inspection Results Result Diagram: 05/07/17 0934 05/07/17 0934 Results 24 hrs Laboratory Tests Test 05/07/17 09:34 05/07/17 09:49 05/07/17 13:50 05/07/17 14:42 White Blood Count 14.1 #H Red Blood Count 3.09 L Hemoglobin 9.4 L Hematocrit 28.9 L Mean Corpuscular Volume 93.5 Mean Corpuscular Hemoglobin 30.4 Mean Corpuscular Hemoglobin Concent 32.5 Red Cell Distribution Width 13.9 Platelet Count 132 #L Mean Platelet Volume 12.1 H Neutrophils % 77.0 Lymphocytes % 14.1 L Monocytes % 6.0 Eosinophils % 2.1 Basophils % 0.3 Nucleated Red Blood Cells % 0.0 Neutrophils # 10.8 H Lymphocytes # 2.0 Monocytes # 0.9 Eosinophils # 0.3 Basophils # 0.0 Nucleated Red Blood Cells # 0.0 Prothrombin Time 16.3 H Prothrombin Time Ratio 1.3 INR International Normalized Ratio 1.30 Activated Partial Thromboplast Time 31.5 Sodium Level 143 Potassium Level 5.3 H Chloride Level 104 Carbon Dioxide Level 23 Anion Gap 21 H Blood Urea Nitrogen 48 H Creatinine 1.84 H Glucose Level 118 Lactic Acid Level 1.4 1.2 1.1 Calcium Level 9.5 Total Bilirubin 0.3 Direct Bilirubin 0.00 Indirect Bilirubin 0.3 Aspartate Amino Transf (AST/SGOT) 19 Alanine Aminotransferase (ALT/SGPT) 41 Alkaline Phosphatase 66 Troponin I < 0.012 Total Protein 7.7 Albumin 4.0 Globulin 3.70 H Albumin/Globulin Ratio 1.08 Urine Color YELLOW Urine Clarity CLOUDY A Urine pH 5.0 Urine Specific [place] 1.016 Urine Ketones NEGATIVE Urine Nitrite NEGATIVE Urine Bilirubin NEGATIVE Urine Urobilinogen NEGATIVE Urine Leukocyte Esterase NEGATIVE Urine Microscopic RBC 0 Urine Microscopic WBC 1 Urine Squamous Epithelial Cells FEW Urine Bacteria FEW A Urine Mucus FEW A Urine Hemoglobin NEGATIVE Urine Glucose NEGATIVE Urine Total Protein NEGATIVE Test 05/07/17 17:32 05/07/17 20:47 Bedside Glucose 94 136 Medications Medications Current Medications Ondansetron HCl (Zofran Inj) 4 mg Q6H PRN IV NAUSEA AND/OR VOMITING; Start at 14:00 Acetaminophen (Tylenol Tab) 650 mg Q6H PRN PO PAIN LEVEL 1-3 OR FEVER; Start at 14:00 Magnesium Hydroxide 30 ml 30 ml DAILY PRN PO CONSTIPATION; Start 05/07/17 at 14 :00 Sodium Chloride (1/2 NS) 1,000 ml @ 80 mls/hr [id number] IV Last administered on 05/08/17 04:19; Admin Dose 80 MLS/HR; Start 05/07/17 at 14:00 Diagnostic Test (Pha) (Accu-Chek) 1 ea 02 XX ; Start 05/08/17 at 02:00 Atorvastatin Calcium (Lipitor) 20 mg QHS PO Last administered on 05/07/17 20: 51; Admin Dose 20 MG; Start 05/07/17 at 21:00 Buspirone HCl (Buspar) 5 mg BID GTB Last administered on 05/07/17 20:51; Admin Dose 5 MG; Start 05/07/17 at 21:00 Carvedilol (Coreg) 3.125 mg BID GTB Last administered on 05/07/17 20:59; Admin Dose 3.125 MG; Start 05/07/17 at 21:00 Gabapentin (Neurontin) 100 mg TID GTB Last administered on 05/07/17 20:51; Admin Dose 100 MG; Start 05/07/17 at 21:00 Insulin Glargine (Lantus) 6 unit QHS SC Last administered on 05/07/17 20:57; Admin Dose 6 UNIT; Start 05/07/17 at 21:00 Levothyroxine Sodium (Synthroid) 75 mcg DAILY@06 GTB Last administered on 05:43; Admin Dose 75 MCG; Start 05/08/17 at 06:00 Lisinopril (Zestril) 2.5 mg DAILY PO ; Start 05/08/17 at 09:00 Mirtazapine (Remeron) 7.5 mg BID GTB Last administered on 05/07/17 20:52; Admin Dose 7.5 MG; Start 05/07/17 at 21:00 Quetiapine Fumarate (Seroquel) 100 mg HS PO Last administered on 05/07/17 20: 51; Admin Dose 100 MG; Start 05/07/17 at 21:00 Venlafaxine HCl (Effexor Xr) 75 mg BID PO Last administered on 05/07/17 20:51 ; Admin Dose 75 MG; Start 05/07/17 at 21:00 Multivitamins (Multivitamin) 30 ml DAILY GTB ; Start 05/08/17 at 09:00 SALUD GARCIA MD May 08, 2017 08:14
[2017-05-08 08:18] LABS: BASOPHILS % 0.4 % (0.0-2.0); EOSINOPHILS # 0.2 10^3/ul (0.0-0.5); EOSINOPHILS % 3.2 % (0.0-7.0); HEMATOCRIT 25.3 % (37.0-47.0); HEMOGLOBIN 8.1 g/dl (12.0-16.0); LYMPHOCYTES # 1.3 10^3/ul (0.8-2.9); LYMPHOCYTES % 19.2 % (15.0-51.0); MEAN CORPUSCULAR HEMOGLOBIN 30.7 pg (29.0-33.0); MEAN CORPUSCULAR VOLUME 95.8 fl (82.0-101.0); MEAN PLATELET VOLUME 12.1 fl (7.4-10.4); MONOCYTE # 0.4 10^3/ul (0.3-0.9); MONOCYTES % 6.2 % (0.0-11.0); NEUTROPHIL # 4.8 10^3/ul (1.6-7.5); NEUTROPHILS % 70.6 % (39.0-77.0); PLATELET COUNT 113 10^3/UL (140-415); RED BLOOD COUNT 2.64 10^6/ul (4.20-5.40); RED CELL DISTRIBUTION WIDTH 13.9 % (11.5-14.5); WHITE BLOOD COUNT 6.8 10^3/ul (4.8-10.8)
[2017-05-08 08:39] LABS: ALBUMIN 3.1 g/dl (3.3-4.9); CALCIUM 8.2 mg/dl (8.4-10.2); CREATININE 1.49 mg/dl (0.44-1.00); MAGNESIUM 2.2 mg/dl (1.7-2.5); PHOSPHORUS 3.8 mg/dl (2.5-4.9); POTASSIUM 4.8 mmol/L (3.5-5.1); TOTAL PROTEIN 6.2 g/dl (6.1-8.1)
[2017-05-08] MEDS: GABAPENTIN 100 MG CAP GTB SCH ×3 (08:55→20:28)
[2017-05-08] MEDS: BUSPIRONE 5 MG TAB GTB SCH ×2 (08:55→20:27)
[2017-05-08] MEDS: LISINOPRIL 5 MG TAB PO SCH (08:57)
[2017-05-08] MEDS: MIRTAZAPINE 15 MG TAB GTB SCH ×2 (08:57→20:28)
[2017-05-08] MEDS: VENLAFAXINE (XR) 75 MG CAP PO SCH ×2 (08:58→20:27)
[2017-05-08] MEDS: MULTIVITAMINS 30 ML CUP GTB SCH (09:06)
[2017-05-08] MEDS: QUETIAPINE 100 MG TAB PO SCH (20:28)
[2017-05-08] MEDS: ATORVASTATIN 20 MG TAB PO SCH (20:28)
[2017-05-08] MEDS: INSULIN GLARGINE [LANtus] 3 ML PEN SC SCH (20:30)
[2017-05-09] VITALS (12 sets, daily range): BP systolic 107–162; BP diastolic 60–72; PULSE 58–80; RESP 18–20
[2017-05-09] MEDS: SOD CHLORIDE 0.45% 1,000 ML IV SCH (01:00)
[2017-05-09] MEDS: ACCU-CHEK XX SCH (02:00)
[2017-05-09] MEDS: LEVOTHYROXINE 75 MCG TAB GTB SCH (06:10)
--- NOTE | 2017-05-09 08:39 | PN ---
Date/Time of Note Date/Time of Note DATE: 05/09/17 TIME: 08:32 Assessment/Plan VTE Prophylaxis VTE Prophylaxis Intervention: SCD's Lines/Catheters IV Catheter Type (from Nrs): Saline Lock Urinary Cath still in place: Yes Reason Cath still needed: urinary retention Assessment/Plan Chief Complaint/Hosp Course 1. she was admitted with lethargy and generalized weakness . She seems better today . Will check swallowing and determine how much she is eating .She was on tube feeding when she was last discharged 3 weeks ago . Will have social service consult 2. dementia 3. DM 4. HTN 5. ARF due to dehydration . Labs are pending .She is getting IV fluids . renal function is improving with IV fluids . 6. dysphagia , she is eating about 50 % . Problems: Subjective 24 Hr Interval Summary Free Text/Dictation She is sleeping . She rouses easily to verbal stimuli and says that she feels well . Constitutional: disoriented, no complaints ENT: no complaints Cardiovascular: no complaints Gastrointestinal: no complaints Genitourinary: no complaints Musculoskeletal: no complaints Exam/Review of Systems Vital Signs Vitals Vital Signs Date Time Temp Pulse Resp B/P Pulse Ox O2 Delivery O2 Flow Rate FiO2 05/09/17 08:09 97.5 62 18 162/72 97 05/08/17 19:53 Nasal Cannula 2.0 Intake and Output 05/08/17 05/08/17 05/09/17 15:00 23:00 07:00 Intake Total 1000 ml 1800 ml Output Total 1600 ml 1100 ml Balance -600 ml 700 ml Exam Constitutional: frail Head: normocephalic Respiratory: clear to auscultation, normal air movement Cardiovascular: regular rate and rhythm Gastrointestinal: non-tender, soft Musculoskeletal: nl extremities to inspection Neurological: lethargic Results Result Diagram: 05/08/17 0717 05/08/17 0722 Results 24 hrs Laboratory Tests Test 05/08/17 12:47 05/08/17 17:16 05/08/17 20:15 05/09/17 07:46 Bedside Glucose 139 186 171 172 Medications Medications Current Medications Ondansetron HCl (Zofran Inj) 4 mg Q6H PRN IV NAUSEA AND/OR VOMITING; Start at 14:00 Acetaminophen (Tylenol Tab) 650 mg Q6H PRN PO PAIN LEVEL 1-3 OR FEVER; Start at 14:00 Magnesium Hydroxide 30 ml 30 ml DAILY PRN PO CONSTIPATION; Start 05/07/17 at 14 :00 Sodium Chloride (1/2 NS) 1,000 ml @ 80 mls/hr [id number] IV Last administered on 05/09/17 01:00; Admin Dose 80 MLS/HR; Start 05/07/17 at 14:00 Diagnostic Test (Pha) (Accu-Chek) 1 ea 02 XX ; Start 05/08/17 at 02:00 Atorvastatin Calcium (Lipitor) 20 mg QHS PO Last administered on 05/08/17 20:28 ; Admin Dose 20 MG; Start 05/07/17 at 21:00 Buspirone HCl (Buspar) 5 mg BID GTB Last administered on 05/08/17 20:27; Admin Dose 5 MG; Start 05/07/17 at 21:00 Carvedilol (Coreg) 3.125 mg BID GTB Last administered on 05/08/17 20:29; Admin Dose 3.125 MG; Start 05/07/17 at 21:00 Gabapentin (Neurontin) 100 mg TID GTB Last administered on 05/08/17 20:28; Admin Dose 100 MG; Start 05/07/17 at 21:00 Insulin Glargine (Lantus) 6 unit QHS SC Last administered on 05/08/17 20:30; Admin Dose 6 UNIT; Start 05/07/17 at 21:00 Levothyroxine Sodium (Synthroid) 75 mcg DAILY@06 GTB Last administered on 06:10; Admin Dose 75 MCG; Start 05/08/17 at 06:00 Lisinopril (Zestril) 2.5 mg DAILY PO Last administered on 05/08/17 08:57; Admin Dose 2.5 MG; Start 05/08/17 at 09:00 Mirtazapine (Remeron) 7.5 mg BID GTB Last administered on 05/08/17 20:28; Admin Dose 7.5 MG; Start 05/07/17 at 21:00 Quetiapine Fumarate (Seroquel) 100 mg HS PO Last administered on 05/08/17 20:28 ; Admin Dose 100 MG; Start 05/07/17 at 21:00 Venlafaxine HCl (Effexor Xr) 75 mg BID PO Last administered on 05/08/17 20:27; Admin Dose 75 MG; Start 05/07/17 at 21:00 Multivitamins (Multivitamin) 30 ml DAILY GTB Last administered on 05/08/17 09: 06; Admin Dose 30 ML; Start 05/08/17 at 09:00 SALUD GARCIA MD May 09, 2017 08:39
[2017-05-09] MEDS: VENLAFAXINE (XR) 75 MG CAP PO SCH ×2 (08:44→20:13)
[2017-05-09] MEDS: GABAPENTIN 100 MG CAP GTB SCH ×3 (08:44→20:13)
[2017-05-09] MEDS: MIRTAZAPINE 15 MG TAB GTB SCH ×2 (08:45→20:13)
[2017-05-09] MEDS: BUSPIRONE 5 MG TAB GTB SCH ×2 (08:45→20:13)
[2017-05-09] MEDS: LISINOPRIL 5 MG TAB PO SCH (08:46)
[2017-05-09] MEDS: MULTIVITAMINS 30 ML CUP GTB SCH (08:47)
[2017-05-09] MEDS: INSULIN ASPART [NOVOLOG] 3 ML PEN SC SCH ×4 (08:52→20:18)
[2017-05-09] MEDS: QUETIAPINE 100 MG TAB PO SCH (20:13)
[2017-05-09] MEDS: ATORVASTATIN 20 MG TAB PO SCH (20:13)
[2017-05-09] MEDS: INSULIN GLARGINE [LANtus] 3 ML PEN SC SCH (20:16)
[2017-05-10] VITALS (12 sets, daily range): BP systolic 104–155; BP diastolic 55–72; PULSE 61–79; RESP 18–19
[2017-05-10] MEDS: ACCU-CHEK XX SCH (02:00)
[2017-05-10] MEDS: LEVOTHYROXINE 75 MCG TAB GTB SCH (05:17)
[2017-05-10] MEDS: INSULIN ASPART [NOVOLOG] 3 ML PEN SC SCH ×4 (08:40→21:37)
[2017-05-10] MEDS: BUSPIRONE 5 MG TAB GTB SCH ×2 (08:41→21:17)
[2017-05-10] MEDS: MULTIVITAMINS 30 ML CUP GTB SCH (08:41)
[2017-05-10] MEDS: LISINOPRIL 5 MG TAB PO SCH (08:41)
[2017-05-10] MEDS: GABAPENTIN 100 MG CAP GTB SCH ×3 (08:42→21:17)
[2017-05-10] MEDS: MIRTAZAPINE 15 MG TAB GTB SCH ×2 (08:42→21:18)
[2017-05-10] MEDS: VENLAFAXINE (XR) 75 MG CAP PO SCH ×2 (08:42→21:19)
--- NOTE | 2017-05-10 09:00 | PN ---
Date/Time of Note Date/Time of Note DATE: 05/10/17 TIME: 08:54 Assessment/Plan VTE Prophylaxis VTE Prophylaxis Intervention: SCD's Lines/Catheters IV C[facility]ter Type (from [facility]): Peripheral IV Urinary Cath still in place: Yes Reason Cath still needed: urinary retention Assessment/Plan Chief Complaint/Hosp Course 1. she was admitted with lethargy and generalized weakness . She seems better today . Will check swallowing and determine how much she is eating .She was on tube feeding when she was last discharged from this hospital 3 weeks ago . Will have social service consult . Social service has seen the patient. It is not clear whether she was getting any tube feeding at home. We should be able to keep the patient well-hydrated on tube feeding and water flushes in addition to her eating. I am not sure the family and/or caretakers have been doing this properly. If they cannot do it we need to consider a senior living facility. The patient keeps ending up in the hospital with lethargy and dehydration every several weeks. 2. dementia 3. DM 4. HTN 5. ARF due to dehydration . Labs are pending .She was getting IV fluids but this was discontinued because the IV came out and she is a hard stick to get another IV . Will check labs in the morning. 6. dysphagia , she is eating about 50 % . I have asked for dietary consult and calorie count. 7. Urinary retention. Will try to discontinue Zeng catheter and do bladder scans to check for residual urine 8. Anemia, will check CBC in the morning. Problems: Subjective 24 Hr Interval Summary Free Text/Dictation Patient is sitting up being fed breakfast. She says she feels well. She is not complaining of anything. She seems to be eating well. Constitutional: no complaints Cardiovascular: no complaints Gastrointestinal: no complaints Genitourinary: no complaints Musculoskeletal: no complaints Neurologic: confusion Exam/Review of Systems Vital Signs Vitals Vital Signs Date Time Temp Pulse Resp B/P Pulse Ox O2 Delivery O2 Flow Rate FiO2 05/10/17 08:05 61 05/10/17 07:48 98.1 18 110/56 97 05/09/17 22:51 Nasal Cannula 2.0 Intake and Output 05/09/17 05/09/17 05/10/17 15:00 23:00 07:00 Intake Total 1100 ml 400 ml Output Total 1300 ml 100 ml Balance -200 ml 300 ml Exam Constitutional: alert Psych: confusion Neck: non-tender, supple Respiratory: clear to auscultation, normal air movement Cardiovascular: regular rate and rhythm Gastrointestinal: non-tender, soft Neurological: lethargic Results Result Diagram: 05/08/17 0717 05/08/17 0722 Results 24 hrs Laboratory Tests Test 05/09/17 11:29 05/09/17 17:06 05/09/17 20:03 05/10/17 07:44 Bedside Glucose 177 183 199 189 Medications Medications Current Medications Ondansetron HCl (Zofran Inj) 4 mg Q6H PRN IV NAUSEA AND/OR VOMITING; Start at 14:00 Acetaminophen (Tylenol Tab) 650 mg Q6H PRN PO PAIN LEVEL 1-3 OR FEVER; Start at 14:00 Magnesium Hydroxide (Milk Of Mag) 30 ml DAILY PRN PO CONSTIPATION; Start at 14:00 Diagnostic Test (Pha) (Accu-Chek) 1 ea 02 XX ; Start 05/08/17 at 02:00 Atorvastatin Calcium (Lipitor) 20 mg QHS PO Last administered on 05/09/17 20:13 ; Admin Dose 20 MG; Start 05/07/17 at 21:00 Buspirone HCl (Buspar) 5 mg BID GTB Last administered on 05/10/17 08:41; Admin Dose 5 MG; Start 05/07/17 at 21:00 Carvedilol (Coreg) 3.125 mg BID GTB Last administered on 05/10/17 08:42; Admin Dose 3.125 MG; Start 05/07/17 at 21:00 Gabapentin (Neurontin) 100 mg TID GTB Last administered on 05/10/17 08:42; Admin Dose 100 MG; Start 05/07/17 at 21:00 Insulin Glargine (Lantus) 6 unit QHS SC Last administered on 05/09/17 20:16; Admin Dose 6 UNIT; Start 05/07/17 at 21:00 Levothyroxine Sodium (Synthroid) 75 mcg DAILY@06 GTB Last administered on 05:17; Admin Dose 75 MCG; Start 05/08/17 at 06:00 Lisinopril (Zestril) 2.5 mg DAILY PO Last administered on 05/10/17 08:41; Admin Dose 2.5 MG; Start 05/08/17 at 09:00 Mirtazapine (Remeron) 7.5 mg BID GTB Last administered on 05/10/17 08:42; Admin Dose 7.5 MG; Start 05/07/17 at 21:00 Quetiapine Fumarate (Seroquel) 100 mg HS PO Last administered on 05/09/17 20:13 ; Admin Dose 100 MG; Start 05/07/17 at 21:00 Venlafaxine HCl (Effexor Xr) 75 mg BID PO Last administered on 05/10/17 08:42; Admin Dose 75 MG; Start 05/07/17 at 21:00 Multivitamins (Multivitamin) 30 ml DAILY GTB Last administered on 05/10/17 08: 41; Admin Dose 30 ML; Start 05/08/17 at 09:00 SALUD GARCIA MD May 10, 2017 09:00
[2017-05-10] MEDS: ATORVASTATIN 20 MG TAB PO SCH (21:16)
[2017-05-10] MEDS: QUETIAPINE 100 MG TAB PO SCH (21:18)
[2017-05-10] MEDS: INSULIN GLARGINE [LANtus] 3 ML PEN SC SCH (21:36)
[2017-05-11] VITALS (11 sets, daily range): BP systolic 108–145; BP diastolic 55–68; PULSE 67–84; RESP 18–20
[2017-05-11] MEDS: ACCU-CHEK XX SCH (02:00)
[2017-05-11] MEDS: LEVOTHYROXINE 75 MCG TAB GTB SCH (06:22)
[2017-05-11] MEDS: MULTIVITAMINS 30 ML CUP GTB SCH (08:45)
[2017-05-11] MEDS: BUSPIRONE 5 MG TAB GTB SCH ×2 (08:45→21:09)
[2017-05-11] MEDS: MIRTAZAPINE 15 MG TAB GTB SCH ×2 (08:45→21:09)
[2017-05-11] MEDS: VENLAFAXINE (XR) 75 MG CAP PO SCH ×2 (08:45→21:10)
[2017-05-11] MEDS: GABAPENTIN 100 MG CAP GTB SCH ×3 (08:45→21:10)
[2017-05-11] MEDS: LISINOPRIL 5 MG TAB PO SCH (08:45)
[2017-05-11] MEDS: INSULIN ASPART [NOVOLOG] 3 ML PEN SC SCH ×4 (08:46→21:13)
[2017-05-11 08:50] LABS: BASOPHIL # 0.1 10^3/ul (0.0-0.1); BASOPHILS % 0.6 % (0.0-2.0); EOSINOPHILS # 0.3 10^3/ul (0.0-0.5); EOSINOPHILS % 3.2 % (0.0-7.0); HEMATOCRIT 29.8 % (37.0-47.0); HEMOGLOBIN 9.8 g/dl (12.0-16.0); LYMPHOCYTES # 2.4 10^3/ul (0.8-2.9); LYMPHOCYTES % 27.6 % (15.0-51.0); MEAN CORPUSCULAR HGB CONC 32.9 g/dl (32.0-37.0); MEAN CORPUSCULAR VOLUME 94.3 fl (82.0-101.0); MEAN PLATELET VOLUME 11.1 fl (7.4-10.4); MONOCYTE # 0.6 10^3/ul (0.3-0.9); MONOCYTES % 7.1 % (0.0-11.0); NEUTROPHIL # 5.4 10^3/ul (1.6-7.5); PLATELET COUNT 147 10^3/UL (140-415); RED BLOOD COUNT 3.16 10^6/ul (4.20-5.40); RED CELL DISTRIBUTION WIDTH 13.4 % (11.5-14.5); WHITE BLOOD COUNT 8.8 10^3/ul (4.8-10.8)
[2017-05-11 09:18] LABS: ALBUMIN 3.5 g/dl (3.3-4.9); ALBUMIN/GLOBULIN RATIO 0.94; CALCIUM 9.4 mg/dl (8.4-10.2); CREATININE 1.19 mg/dl (0.44-1.00); MAGNESIUM 1.8 mg/dl (1.7-2.5); PHOSPHORUS 4.3 mg/dl (2.5-4.9); POTASSIUM 4.5 mmol/L (3.5-5.1); TOTAL PROTEIN 7.2 g/dl (6.1-8.1)
--- NOTE | 2017-05-11 11:04 | PN ---
Date/Time of Note Date/Time of Note DATE: 05/11/17 TIME: 10:46 Assessment/Plan VTE Prophylaxis VTE Prophylaxis Intervention: SCD's Lines/Catheters IV Catheter Type (from [facility]): Peripheral IV Urinary Cath still in place: No Assessment/Plan Chief Complaint/Hosp Course 1. she was admitted with lethargy and generalized weakness . She seems better today . Will check swallowing and determine how much she is eating .She was on tube feeding when she was last discharged from this hospital 3 weeks ago . Will have social service consult . Social service has seen the patient. It is not clear whether she was getting any tube feeding at home. We should be able to keep the patient well-hydrated on tube feeding and water flushes in addition to her eating. I am not sure the family and/or caretakers have been doing this properly. If they cannot do it we need to consider a group home facility. The patient keeps ending up in the hospital with lethargy and dehydration every several weeks. 2. dementia 3. DM 4. HTN 5. ARF due to dehydration . Renal function is improving . She is hypernatremic . She will be started on bolus water via G tube Q 6 hours . 6. dysphagia , she is eating about 50 % . I have asked for dietary consult and calorie count. I will order bolus feeding with each meal . 7. Urinary retention. Zeng catheter was removed and she is urinating well . 8. Anemia Problems: Subjective 24 Hr Interval Summary Free Text/Dictation Patient is awake and responsive . She is in her usual mental state , which is demented and confused . She denies abdominal pain . She did not eat breakfast . Constitutional: disoriented Respiratory: no complaints Cardiovascular: no complaints Gastrointestinal: decreased appetite, no complaints Musculoskeletal: no complaints Neurologic: confusion Exam/Review of Systems Vital Signs Vitals Vital Signs Date Time Temp Pulse Resp B/P Pulse Ox O2 Delivery O2 Flow Rate FiO2 05/11/17 08:15 72 05/11/17 08:08 98.7 18 108/55 98 05/10/17 23:35 Nasal Cannula 2.0 Intake and Output 05/10/17 05/10/17 05/11/17 15:00 23:00 07:00 Intake Total 500 ml 50 ml Output Total 500 ml Balance 0 ml 50 ml Exam Constitutional: alert, frail Psych: confusion Neck: non-tender, supple Respiratory: clear to auscultation Cardiovascular: regular rate and rhythm Gastrointestinal: non-tender, soft Musculoskeletal: nl extremities to inspection Results Result Diagram: 05/11/17 0805/11/17 08 Results 24 hrs Laboratory Tests Test 05/10/17 11:56 05/10/17 17:20 05/10/17 21:13 05/11/17 02:50 Bedside Glucose 246 H 181 203 208 Test 05/11/17 07:44 05/11/17 08:26 Bedside Glucose 182 White Blood Count 8.8 # Red Blood Count 3.16 L Hemoglobin 9.8 #L Hematocrit 29.8 L Mean Corpuscular Volume 94.3 Mean Corpuscular Hemoglobin 31.0 Mean Corpuscular Hemoglobin Concent 32.9 Red Cell Distribution Width 13.4 Platelet Count 147 # Mean Platelet Volume 11.1 H Neutrophils % 61.0 Lymphocytes % 27.6 Monocytes % 7.1 Eosinophils % 3.2 Basophils % 0.6 Nucleated Red Blood Cells % 0.0 Neutrophils # 5.4 Lymphocytes # 2.4 Monocytes # 0.6 Eosinophils # 0.3 Basophils # 0.1 Nucleated Red Blood Cells # 0.0 Sodium Level 147 H Potassium Level 4.5 Chloride Level 111 H Carbon Dioxide Level 19 L Anion Gap 22 H Blood Urea Nitrogen 31 H Creatinine 1.19 H Glucose Level 185 Calcium Level 9.4 Phosphorus Level 4.3 Magnesium Level 1.8 Total Bilirubin 0.0 L Direct Bilirubin 0.00 Indirect Bilirubin 0.0 Aspartate Amino Transf (AST/SGOT) 15 Alanine Aminotransferase (ALT/SGPT) 36 Alkaline Phosphatase 59 Total Protein 7.2 Albumin 3.5 Globulin 3.70 H Albumin/Globulin Ratio 0.94 Medications Medications Current Medications Ondansetron HCl (Zofran Inj) 4 mg Q6H PRN IV NAUSEA AND/OR VOMITING; Start at 14:00 Acetaminophen (Tylenol Tab) 650 mg Q6H PRN PO PAIN LEVEL 1-3 OR FEVER; Start at 14:00 Magnesium Hydroxide (Milk Of Mag) 30 ml DAILY PRN PO CONSTIPATION; Start at 14:00 Diagnostic Test (Pha) (Accu-Chek) 1 ea 02 XX ; Start 05/08/17 at 02:00 Atorvastatin Calcium (Lipitor) 20 mg QHS PO Last administered on 05/10/17t 21:16 ; Admin Dose 20 MG; Start 05/07/17 at 21:00 Buspirone HCl (Buspar) 5 mg BID GTB Last administered on 05/11/17 08:45; Admin Dose 5 MG; Start 05/07/17 at 21:00 Carvedilol (Coreg) 3.125 mg BID GTB Last administered on 05/11/17 08:45; Admin Dose 3.125 MG; Start 05/07/17 at 21:00 Gabapentin (Neurontin) 100 mg TID GTB Last administered on 05/11/17 08:45; Admin Dose 100 MG; Start 05/07/17 at 21:00 Insulin Glargine (Lantus) 6 unit QHS SC Last administered on 05/10/17 21:36; Admin Dose 6 UNIT; Start 05/07/17 at 21:00 Levothyroxine Sodium (Synthroid) 75 mcg DAILY@06 GTB Last administered on 06:22; Admin Dose 75 MCG; Start 05/08/17 at 06:00 Lisinopril (Zestril) 2.5 mg DAILY PO Last administered on 05/11/17 08:45; Admin Dose 2.5 MG; Start 05/08/17 at 09:00 Mirtazapine (Remeron) 7.5 mg BID GTB Last administered on 05/11/17 08:45; Admin Dose 7.5 MG; Start 05/07/17 at 21:00 Quetiapine Fumarate (Seroquel) 100 mg HS PO Last administered on 05/10/17 21:18 ; Admin Dose 100 MG; Start 05/07/17 at 21:00 Venlafaxine HCl (Effexor Xr) 75 mg BID PO Last administered on 05/11/17 08:45; Admin Dose 75 MG; Start 05/07/17 at 21:00 Multivitamins (Multivitamin) 30 ml DAILY GTB Last administered on 05/11/17 08: 45; Admin Dose 30 ML; Start 05/08/17 at 09:00 SALUD GARCIA MD May 11, 2017 11:03
[2017-05-11] MEDS: ATORVASTATIN 20 MG TAB PO SCH (21:10)
[2017-05-11] MEDS: QUETIAPINE 100 MG TAB PO SCH (21:10)
[2017-05-11] MEDS: INSULIN GLARGINE [LANtus] 3 ML PEN SC SCH (21:19)
[2017-05-12] VITALS (12 sets, daily range): BP systolic 116–148; BP diastolic 56–68; PULSE 70–81; RESP 18–22
[2017-05-12] MEDS: ACCU-CHEK XX SCH (02:21)
[2017-05-12] MEDS: LEVOTHYROXINE 75 MCG TAB GTB SCH (06:09)
[2017-05-12] MEDS: INSULIN ASPART [NOVOLOG] 3 ML PEN SC SCH ×5 (08:00→22:07)
[2017-05-12] MEDS: MIRTAZAPINE 15 MG TAB GTB SCH ×2 (08:34→22:03)
[2017-05-12] MEDS: MULTIVITAMINS 30 ML CUP GTB SCH (08:34)
[2017-05-12] MEDS: GABAPENTIN 100 MG CAP GTB SCH ×3 (08:34→22:05)
[2017-05-12] MEDS: VENLAFAXINE (XR) 75 MG CAP PO SCH ×2 (08:35→22:04)
[2017-05-12] MEDS: LISINOPRIL 5 MG TAB PO SCH (08:35)
[2017-05-12] MEDS: BUSPIRONE 5 MG TAB GTB SCH ×2 (08:35→22:04)
--- NOTE | 2017-05-12 11:57 | PN ---
Date/Time of Note Date/Time of Note DATE: 05/12/17 TIME: 11:50 Assessment/Plan VTE Prophylaxis VTE Prophylaxis Intervention: SCD's Lines/Catheters [facility] Peripheral IV Urinary Cath still in place: No Assessment/Plan Chief Complaint/Hosp Course 1. she was admitted with lethargy and generalized weakness . She seems better today . She is still not eating much; however, we are giving her supplements of Boost the the G-tube at breakfast lunch and dinner to supplement her diet. 2. dementia 3. DM , her blood sugars have been high since we started the Boost. I will increase her Lantus insulin. 4. HTN 5. ARF due to dehydration . Renal function is improving . She is hypernatremic . She will be started on bolus water via G tube Q 6 hours . 6. dysphagia , she is eating about 50 % . I have asked for dietary consult and calorie count. I will order bolus feeding with each meal . 7. Urinary retention. Zeng catheter was removed and she is urinating well . 8. Anemia Problems: Subjective 24 Hr Interval Summary Free Text/Dictation The patient is sleeping. Her pastry assistant is in the room with her. She seems comfortable. She does not complain of pain. She apparently did not eat much breakfast but did get a bolus of boost down her G-tube. Constitutional: disoriented Eyes: no complaints Gastrointestinal: no complaints Musculoskeletal: no complaints Exam/Review of Systems Vital Signs Vitals Vital Signs Date Time Temp Pulse Resp B/P Pulse Ox O2 Delivery O2 Flow Rate FiO2 05/12/17 08:19 98.7 80 18 139/68 97 05/12/17 08:15 Nasal Cannula 2.0 Intake and Output 05/11/17 05/11/17 05/12/17 15:00 23:00 07:00 Intake Total 550 ml 50 ml Output Total 1000 ml Balance -450 ml 50 ml Exam Constitutional: frail Respiratory: clear to auscultation, normal air movement Cardiovascular: regular rate and rhythm Musculoskeletal: nl extremities to inspection Results Result Diagram: 05/11/17 0826 05/11/17 0826 Results 24 hrs Laboratory Tests Test 05/11/17 12:25 05/11/17 17:33 05/11/17 21:08 05/12/17 02:18 Bedside Glucose 174 310 H 276 H 222 H Test 05/12/17 08:17 8/5/17 11:25 Bedside Glucose 199 242 H Medications Medications Current Medications Ondansetron HCl (Zofran Inj) 4 mg Q6H PRN IV NAUSEA AND/OR VOMITING; Start at 14:00 Acetaminophen (Tylenol Tab) 650 mg Q6H PRN PO PAIN LEVEL 1-3 OR FEVER; Start at 14:00 Magnesium Hydroxide (Milk Of Mag) 30 ml DAILY PRN PO CONSTIPATION; Start at 14:00 Diagnostic Test (Pha) (Accu-Chek) 1 ea 02 XX Last administered on 05/12/17 02: 21; Admin Dose 1 EA; Start 05/08/17 at 02:00 Atorvastatin Calcium (Lipitor) 20 mg QHS PO Last administered on 05/11/17 21:10 ; Admin Dose 20 MG; Start 05/07/17 at 21:00 Buspirone HCl (Buspar) 5 mg BID GTB Last administered on 05/12/17 08:35; Admin Dose 5 MG; Start 05/07/17 at 21:00 Carvedilol (Coreg) 3.125 mg BID GTB Last administered on 05/12/17 08:35; Admin Dose 3.125 MG; Start 05/07/17 at 21:00 Gabapentin (Neurontin) 100 mg TID GTB Last administered on 05/12/17 08:34; Admin Dose 100 MG; Start 05/07/17 at 21:00 Insulin Glargine (Lantus) 6 unit QHS SC Last administered on 05/11/17 21:19; Admin Dose 6 UNIT; Start 05/07/17 at 21:00 Levothyroxine Sodium (Synthroid) 75 mcg DAILY@06 GTB Last administered on 06:09; Admin Dose 75 MCG; Start 05/08/17 at 06:00 Lisinopril (Zestril) 2.5 mg DAILY PO Last administered on 05/12/17 08:35; Admin Dose 2.5 MG; Start 05/08/17 at 09:00 Mirtazapine (Remeron) 7.5 mg BID GTB Last administered on 05/12/17 08:34; Admin Dose 7.5 MG; Start 7/31/17 at 21:00 Quetiapine Fumarate (Seroquel) 100 mg HS PO Last administered on 05/11/17 21:10 ; Admin Dose 100 MG; Start 05/07/17 at 21:00 Venlafaxine HCl (Effexor Xr) 75 mg BID PO Last administered on 05/12/17 08:35; Admin Dose 75 MG; Start 05/07/17 at 21:00 Multivitamins (Multivitamin) 30 ml DAILY GTB Last administered on 05/12/17 08: 34; Admin Dose 30 ML; Start 05/08/17 at 09:00 SALUD GARCIA MD May 12, 2017 11:57
[2017-05-12] MEDS ORDERED: GLUCOSE GEL 15 GRAM TUBE PO PRN ×2 (12:00)
[2017-05-12] MEDS ORDERED: GLUCOSE GEL 15 GRAM TUBE BUCCAL PRN (12:00)
[2017-05-12] MEDS ORDERED: DEXTROSE 50% 50 ML SYRINGE IV PRN ×2 (12:00)
[2017-05-12] MEDS ORDERED: GLUCAGON 1 MG INJ IM PRN (12:00)
[2017-05-12] MEDS ORDERED: INSULIN GLARGINE [LANtus] 3 ML PEN SC SCH (21:00)
[2017-05-12] MEDS: ATORVASTATIN 20 MG TAB PO SCH (22:03)
[2017-05-12] MEDS: QUETIAPINE 100 MG TAB PO SCH (22:04)
[2017-05-12] MEDS: MEGESTROL (40 MG/ML) 10ML CUP PO SCH (22:05)
[2017-05-13] VITALS (13 sets, daily range): BP systolic 102–160; BP diastolic 52–72; PULSE 72–83; RESP 18–20
[2017-05-13] MEDS: ACCU-CHEK XX SCH ×2 (02:38)
[2017-05-13] MEDS: LEVOTHYROXINE 75 MCG TAB GTB SCH (05:44)
[2017-05-13 07:12] LABS: BASOPHILS % 0.5 % (0.0-2.0); EOSINOPHILS # 0.2 10^3/ul (0.0-0.5); EOSINOPHILS % 3.1 % (0.0-7.0); HEMATOCRIT 28.9 % (37.0-47.0); HEMOGLOBIN 9.1 g/dl (12.0-16.0); LYMPHOCYTES # 1.7 10^3/ul (0.8-2.9); LYMPHOCYTES % 21.7 % (15.0-51.0); MEAN CORPUSCULAR HEMOGLOBIN 29.4 pg (29.0-33.0); MEAN CORPUSCULAR HGB CONC 31.5 g/dl (32.0-37.0); MEAN CORPUSCULAR VOLUME 93.5 fl (82.0-101.0); MEAN PLATELET VOLUME 11.2 fl (7.4-10.4); MONOCYTE # 0.6 10^3/ul (0.3-0.9); MONOCYTES % 7.4 % (0.0-11.0); NEUTROPHIL # 5.2 10^3/ul (1.6-7.5); NEUTROPHILS % 66.8 % (39.0-77.0); PLATELET COUNT 154 10^3/UL (140-415); RED BLOOD COUNT 3.09 10^6/ul (4.20-5.40); RED CELL DISTRIBUTION WIDTH 13.8 % (11.5-14.5); WHITE BLOOD COUNT 7.8 10^3/ul (4.8-10.8)
[2017-05-13 07:38] LABS: ALBUMIN 3.8 g/dl (3.3-4.9); ALBUMIN/GLOBULIN RATIO 1.11; BILIRUBIN,INDIRECT 0.1 mg/dl (0-1.1); BILIRUBIN,TOTAL 0.1 mg/dl (0.2-1.3); CALCIUM 9.8 mg/dl (8.4-10.2); CREATININE 1.19 mg/dl (0.44-1.00); POTASSIUM 4.4 mmol/L (3.5-5.1); TOTAL PROTEIN 7.2 g/dl (6.1-8.1)
[2017-05-13] MEDS: INSULIN ASPART [NOVOLOG] 3 ML PEN SC SCH ×4 (08:11→20:51)
[2017-05-13] MEDS: MEGESTROL (40 MG/ML) 10ML CUP PO SCH ×2 (08:44→21:01)
[2017-05-13] MEDS: MULTIVITAMINS 30 ML CUP GTB SCH (08:44)
[2017-05-13] MEDS: VENLAFAXINE (XR) 75 MG CAP PO SCH ×2 (08:44→20:49)
[2017-05-13] MEDS: MIRTAZAPINE 15 MG TAB GTB SCH ×2 (08:44→20:48)
[2017-05-13] MEDS: GABAPENTIN 100 MG CAP GTB SCH ×3 (08:44→20:48)
[2017-05-13] MEDS: LISINOPRIL 5 MG TAB PO SCH (08:45)
[2017-05-13] MEDS: BUSPIRONE 5 MG TAB GTB SCH ×2 (08:45→20:48)
--- NOTE | 2017-05-13 11:24 | PN ---
Date/Time of Note Date/Time of Note DATE: 05/13/17 TIME: 11:21 Assessment/Plan VTE Prophylaxis VTE Prophylaxis Intervention: SCD's Lines/Catheters IV Catheter Type (from [facility]): Peripheral IV Urinary Cath still in place: No Assessment/Plan Chief Complaint/Hosp Course 1. she was admitted with lethargy and generalized weakness . She seems better today . She is still not eating much; however, we are giving her supplements of Boost the the G-tube at breakfast lunch and dinner to supplement her diet. 2. dementia 3. DM , her blood sugars have been high since we started the Boost. I will increase her Lantus insulin. 4. HTN 5. ARF due to dehydration . Renal function is improving . She is hypernatremic . She will be started on bolus water via G tube Q 6 hours . 6. dysphagia , she is eating about 50 % . I have asked for dietary consult and calorie count. I will order bolus feeding with each meal . 7. Urinary retention. Zeng catheter was removed and she is urinating well . 8. Anemia, I will order iron studies. I will start her on vitamin B12. Problems: Subjective 24 Hr Interval Summary Free Text/Dictation She is in bed sleeping. She rouses easily to verbal stimuli. She is responsive. She denies pain. She did eat more than 50% of her breakfast this morning. Constitutional: no complaints Gastrointestinal: no complaints Genitourinary: no complaints Musculoskeletal: no complaints Neurologic: confusion Psychological: confusion Exam/Review of Systems Vital Signs Vitals Vital Signs Date Time Temp Pulse Resp B/P Pulse Ox O2 Delivery O2 Flow Rate FiO2 05/13/17 08:10 Nasal Cannula 2.0 05/13/17 08:10 98.6 79 19 121/59 97 Intake and Output 05/12/17 05/12/17 05/13/17 15:00 23:00 07:00 Intake Total 560 ml 430 ml Balance 560 ml 430 ml Exam Psych: confusion Respiratory: clear to auscultation, normal air movement Cardiovascular: regular rate and rhythm Gastrointestinal: non-tender, soft Musculoskeletal: nl extremities to inspection Results Result Diagram: 05/13/17 0638 05/13/17 0638 Results 24 hrs Laboratory Tests Test 05/12/17 11:25 05/12/17 17:08 05/12/17 20:48 05/13/17 02:31 Bedside Glucose 242 H 231 H 205 282 H Test 05/13/17 06:38 05/13/17 08:07 White Blood Count 7.8 Red Blood Count 3.09 L Hemoglobin 9.1 L Hematocrit 28.9 L Mean Corpuscular Volume 93.5 Mean Corpuscular Hemoglobin 29.4 Mean Corpuscular Hemoglobin Concent 31.5 L Red Cell Distribution Width 13.8 Platelet Count 154 Mean Platelet Volume 11.2 H Neutrophils % 66.8 Lymphocytes % 21.7 Monocytes % 7.4 Eosinophils % 3.1 Basophils % 0.5 Nucleated Red Blood Cells % 0.0 Neutrophils # 5.2 Lymphocytes # 1.7 Monocytes # 0.6 Eosinophils # 0.2 Basophils # 0.0 Nucleated Red Blood Cells # 0.0 Sodium Level 145 H Potassium Level 4.4 Chloride Level 112 H Carbon Dioxide Level 17 L Anion Gap 20 H Blood Urea Nitrogen 49 #H Creatinine 1.19 H Glucose Level 237 H Calcium Level 9.8 Total Bilirubin 0.1 L Direct Bilirubin 0.00 Indirect Bilirubin 0.1 Aspartate Amino Transf (AST/SGOT) 16 Alanine Aminotransferase (ALT/SGPT) 35 Alkaline Phosphatase 63 Total Protein 7.2 Albumin 3.8 Globulin 3.40 H Albumin/Globulin Ratio 1.11 Bedside Glucose 240 H Medications Medications Current Medications Ondansetron HCl (Zofran Inj) 4 mg Q6H PRN IV NAUSEA AND/OR VOMITING; Start at 14:00 Acetaminophen (Tylenol Tab) 650 mg Q6H PRN PO PAIN LEVEL 1-3 OR FEVER; Start at 14:00 Magnesium Hydroxide (Milk Of Mag) 30 ml DAILY PRN PO CONSTIPATION; Start at 14:00 Atorvastatin Calcium (Lipitor) 20 mg QHS PO Last administered on 05/12/17 22:03 ; Admin Dose 20 MG; Start 05/07/17 at 21:00 Buspirone HCl (Buspar) 5 mg BID GTB Last administered on 05/13/17 08:45; Admin Dose 5 MG; Start 05/07/17 at 21:00 Carvedilol (Coreg) 3.125 mg BID GTB Last administered on 05/13/17 08:46; Admin Dose 3.125 MG; Start 05/07/17 at 21:00 Gabapentin (Neurontin) 100 mg TID GTB Last administered on 05/13/17 08:44; Admin Dose 100 MG; Start 05/07/17 at 21:00 Levothyroxine Sodium (Synthroid) 75 mcg DAILY@06 GTB Last administered on 05:44; Admin Dose 75 MCG; Start 05/08/17 at 06:00 Lisinopril (Zestril) 2.5 mg DAILY PO Last administered on 05/13/17 08:45; Admin Dose 2.5 MG; Start 05/08/17 at 09:00 Mirtazapine (Remeron) 7.5 mg BID GTB Last administered on 05/13/17 08:44; Admin Dose 7.5 MG; Start 05/07/17 at 21:00 Quetiapine Fumarate (Seroquel) 100 mg HS PO Last administered on 05/12/17 22:04 ; Admin Dose 100 MG; Start 05/07/17 at 21:00 Venlafaxine HCl (Effexor Xr) 75 mg BID PO Last administered on 05/13/17 08:44; Admin Dose 75 MG; Start 05/07/17 at 21:00 Multivitamins (Multivitamin) 30 ml DAILY GTB Last administered on 05/13/17 08: 44; Admin Dose 30 ML; Start 05/08/17 at 09:00 Insulin Glargine (Lantus) 10 unit QHS SC Last administered on 05/12/17 22:08; Admin Dose 10 UNIT; Start 05/12/17 at 21:00 Megestrol Acetate (Megace Susp) 400 mg BID PO Last administered on 05/13/17 08: 44; Admin Dose 400 MG; Start 05/12/17 at 21:00 Miscellaneous Information 1 ea NOTE XX ; Start 05/12/17 at 12:00 Glucose (Glutose) 15 gm Q15M PRN PO DECREASED GLUCOSE; Start 05/12/17 at 12:00 Glucose (Glutose) 22.5 gm Q15M PRN PO DECREASED GLUCOSE; Start 05/12/17 at 12:00 Dextrose (D50w Syringe) 25 ml Q15M PRN IV DECREASED GLUCOSE; Start 05/12/17 at 12:00 Dextrose (D50w Syringe) 50 ml Q15M PRN IV DECREASED GLUCOSE; Start 8/5/17 at 12:00 Glucagon (Glucagen) 1 mg Q15M PRN IM DECREASED GLUCOSE; Start 05/12/17 at 12:00 Glucose (Glutose) 15 gm Q15M PRN BUCCAL DECREASED GLUCOSE; Start 05/12/17 at 12: 00 Diagnostic Test (Pha) (Accu-Chek) 1 XX Last administered on 05/13/17 02: 38; Admin Dose 1 EA; Start 05/13/17 at 02:00 Diagnostic Test (Pha) (Accu-Chek) XX Last administered on 05/13/17 02: 38; Admin Dose 1 EA; Start 05/13/17 at 02:00 SALUD GARCIA MD May 13, 2017 11:24
[2017-05-13] MEDS ORDERED: CYANOCOBALAMIN 1000 MCG INJ IM ONE (13:00)
[2017-05-13 13:10] LABS: IRON 32 ug/dl (35-150)
[2017-05-13 13:21] LABS: TOTAL IRON BINDING CAPACITY 254 ug/dl (241-421)
[2017-05-13] MEDS: ATORVASTATIN 20 MG TAB PO SCH (20:47)
[2017-05-13] MEDS: QUETIAPINE 100 MG TAB PO SCH (20:49)
[2017-05-13] MEDS ORDERED: INSULIN GLARGINE [LANtus] 3 ML PEN SC SCH (21:00)
[2017-05-14] VITALS (8 sets, daily range): BP systolic 108–136; BP diastolic 53–65; PULSE 58–69; RESP 18–20
[2017-05-14] MEDS: ACCU-CHEK XX SCH ×2 (02:00)
[2017-05-14] MEDS: LEVOTHYROXINE 75 MCG TAB GTB SCH (05:18)
[2017-05-14] MEDS: INSULIN ASPART [NOVOLOG] 3 ML PEN SC SCH ×2 (08:47→12:02)
[2017-05-14] MEDS: GABAPENTIN 100 MG CAP GTB SCH ×2 (08:53→12:04)
[2017-05-14] MEDS: MEGESTROL (40 MG/ML) 10ML CUP PO SCH (08:53)
[2017-05-14] MEDS: BUSPIRONE 5 MG TAB GTB SCH (08:53)
[2017-05-14] MEDS: MULTIVITAMINS 30 ML CUP GTB SCH (08:53)
[2017-05-14] MEDS: LISINOPRIL 5 MG TAB PO SCH (08:54)
[2017-05-14] MEDS: VENLAFAXINE (XR) 75 MG CAP PO SCH (08:54)
[2017-05-14] MEDS ORDERED: CYANOCOBALAMIN 500 MCG TAB PO SCH (09:00)
[2017-05-14] MEDS: MIRTAZAPINE 15 MG TAB GTB SCH (09:02)
--- NOTE | 2017-05-14 10:58 | PDOCDIS ---
Discharge Instructions CONDITION Patient Condition: Fair HOME CARE INSTRUCTIONS: Diet Instructions: Reduced CalorieSpecial Diet: carb controlled mech soft ACTIVITY: Activity Restrictions: Slowly Increase Activity Rest between Activity Avoid Heavy Housework Bathing Restrictions: Tub Bath FOLLOW UP/APPOINTMENTS Follow-up Plan Dr Gaines for follow up in his office in 2 weeks . SALUD GARCIA MD May 14, 2017 10:58
[2017-05-14 12:41] LABS: BASOPHILS % 0.5 % (0.0-2.0); EOSINOPHILS # 0.2 10^3/ul (0.0-0.5); EOSINOPHILS % 2.7 % (0.0-7.0); HEMATOCRIT 27.8 % (37.0-47.0); HEMOGLOBIN 8.9 g/dl (12.0-16.0); LYMPHOCYTES # 1.6 10^3/ul (0.8-2.9); LYMPHOCYTES % 27.4 % (15.0-51.0); MEAN CORPUSCULAR VOLUME 93.6 fl (82.0-101.0); MEAN PLATELET VOLUME 11.9 fl (7.4-10.4); MONOCYTE # 0.6 10^3/ul (0.3-0.9); MONOCYTES % 9.5 % (0.0-11.0); NEUTROPHIL # 3.5 10^3/ul (1.6-7.5); NEUTROPHILS % 59.4 % (39.0-77.0); PLATELET COUNT 157 10^3/UL (140-415); RED BLOOD COUNT 2.97 10^6/ul (4.20-5.40); RED CELL DISTRIBUTION WIDTH 13.7 % (11.5-14.5); WHITE BLOOD COUNT 5.9 10^3/ul (4.8-10.8)
[2017-05-14 13:05] LABS: ALBUMIN 3.6 g/dl (3.3-4.9); ALBUMIN/GLOBULIN RATIO 1.05; BILIRUBIN,INDIRECT 0.1 mg/dl (0-1.1); BILIRUBIN,TOTAL 0.1 mg/dl (0.2-1.3); CALCIUM 9.2 mg/dl (8.4-10.2); CREATININE 1.16 mg/dl (0.44-1.00); POTASSIUM 4.5 mmol/L (3.5-5.1)
--- NOTE | 2017-05-15 07:57 | DS ---
DATE OF ADMISSION: 05/07/2017 DATE OF DISCHARGE: HISTORY OF PRESENT ILLNESS AND HOSPITAL COURSE: This 86-year-old female was admitted from home because of generalized weakness and lethargy. The patient came into the emergency room and she was evaluated. She was found to have renal failure with a BUN of 48 and a serum creatinine of 1.84. The patient was given intravenous fluids on admission. She has not been eating well. This was known prior to this admission because she was here about 3 weeks prior to being readmitted. During that admission, she was not eating well. At that time I had discussed with the family about giving her tube feedings to supplement her diet and also to give her free water. Apparently, the family and/or caretakers were not giving her the supplements. The patient while in the hospital was given supplementary Boost nutritional liquid. If she did not eat a full meal or less than 50 percent and she was given a bolus of Boost. The patient will be sent home for the same issues. DISCHARGE MEDICATIONS: She will be sent home on the following medication acetaminophen 650 q.6 hours p.r.n. pain, atorvastatin 20 mg a day, BuSpar 5 mg twice a day, carvedilol 3.125 mg twice a day, cyanocobalamin 500 mcg, 1000 mcg a day, gabapentin 100 mg 3 times a day, sliding scale insulin moderate coverage with NovoLog and Lantus insulin 16 units at bedtime, levothyroxine 75 mcg a day, lisinopril 2.5 mg a day, milk of magnesium 30 cc daily p.r.n. constipation, megestrol 400 mg twice a day, mirtazapine 7.5 mg once a day, multivitamins 1 daily, Seroquel 100 mg at bedtime, venlafaxine 75 mg a day, colace 100 mg twice a day. FOLLOWUP: She will also have a CBC and CMP done every Sunday. The patient will be followed by the [facility], which is followed her previously. DISCHARGE CONDITION: The patient was in fair condition at the time of discharge. DISCHARGE INSTRUCTIONS: I did have the Social Service and binder caser speak to the family and tell them that the patient needs to get supplemental Boost via her G tube if she is not eating. They seem to understand and will do this along with her caregivers. FINAL DIAGNOSES: 1. Debility. 2. Dehydration with acute renal failure. 3. Dementia. 4. Type 2 diabetes mellitus, insulin dependent. 5. Anemia of chronic disease. 6. Hypertension. 7. Anxiety and depression. Dictated By: Juan R Gaines MD /tanja/prerna /Document#: [id number]
== END 2017-05-14 16:45 | disposition home health service (06) | DRG 683 ==
LOC: E/R 08:49 → MS4 11:40
PROVIDERS: ADMIT Internal Medicine; ATTEND Internal Medicine
DX: N17.9 Acute kidney failure, unspecified (principal); D61.818 Other pancytopenia; F03.90 Unspecified dementia, unspecified severity, without behavioral disturbance, psychotic disturbance, mood disturbance, and anxiety; R13.10 Dysphagia, unspecified; Z93.1 Gastrostomy status; E11.9 Type 2 diabetes mellitus without complications; I10 Essential (primary) hypertension; D63.8 Anemia in other chronic diseases classified elsewhere; E86.0 Dehydration; R33.9 Retention of urine, unspecified; R53.81 Other malaise; Z79.4 Long term (current) use of insulin; Z87.440 Personal history of urinary (tract) infections
CPT/HCPCS: 36415; 70450; 71010; 80053; 81001; 82728; 82962; 83540; 83605; 83735; 84100; 84484; 85025; 85610; 85730; 87040; 87086; 92526; 92610; 93005; 96374; 96375; J0692; J1815; J3370; J3420; J7030

== ENCOUNTER 2017-08-27 23:38 | Emergency (ER) | payer MEDICARE, BC ==
[~2017-08-27] VITALS: Ht 149.9 cm; Wt 45.0 kg
[2017-08-27 23:47] VITALS: TEMP 99.1
[2017-08-28 00:10] VITALS: Ht 149.9 cm; Wt 45.0 kg
[2017-08-28 00:24] LABS: BASOPHILS % 0.6 % (0.0-2.0); EOSINOPHILS # 0.3 10^3/ul (0.0-0.5); EOSINOPHILS % 4.9 % (0.0-7.0); LYMPHOCYTES # 1.5 10^3/ul (0.8-2.9); LYMPHOCYTES % 22.9 % (15.0-51.0); MEAN CORPUSCULAR HEMOGLOBIN 31.3 pg (29.0-33.0); MEAN CORPUSCULAR HGB CONC 32.1 g/dl (32.0-37.0); MEAN CORPUSCULAR VOLUME 97.2 fl (82.0-101.0); MEAN PLATELET VOLUME 12.1 fl (7.4-10.4); MONOCYTE # 0.6 10^3/ul (0.3-0.9); MONOCYTES % 8.9 % (0.0-11.0); NEUTROPHIL # 4.2 10^3/ul (1.6-7.5); NEUTROPHILS % 62.1 % (39.0-77.0); PLATELET COUNT 141 10^3/UL (140-415); RED BLOOD COUNT 2.88 10^6/ul (4.20-5.40); RED CELL DISTRIBUTION WIDTH 13.5 % (11.5-14.5); WHITE BLOOD COUNT 6.7 10^3/ul (4.8-10.8)
[2017-08-28 01:11] LABS: ALBUMIN 3.5 g/dl (3.3-4.9); ALBUMIN/GLOBULIN RATIO 0.94; BILIRUBIN,INDIRECT 0.2 mg/dl (0-1.1); BILIRUBIN,TOTAL 0.2 mg/dl (0.2-1.3); CALCIUM 9.3 mg/dl (8.4-10.2); CREATININE 1.26 mg/dl (0.44-1.00); POTASSIUM 4.1 mmol/L (3.5-5.1); TOTAL PROTEIN 7.2 g/dl (6.1-8.1)
--- NOTE | 2017-08-28 01:34 | ERD ---
ER Documentation Chief Complaint Chief Complaint BIB [facility] FOR POSSIBLE WRONG INSULIN ADMINISTRATION BY CAREGIVER HPI 87-year-old female brought in by rescue for possible wrong insulin administration. Patient might have possibly gotten Lantus instead of Humalog. Patient denies any complaints. No other current issues. ROS All systems reviewed and are negative except as per history of present illness. Medications Home Meds Reported Medications Atorvastatin Calcium* (Atorvastatin Calcium*) 20 Mg Tablet, 20 MG PO QHS, #30 TAB 07/19/16 Quetiapine Fumarate* (Quetiapine Fumarate*) 100 Mg Tablet, 100 MG PO HS, TAB 07/19/16 Lisinopril* (Lisinopril*) 2.5 Mg Tablet, 2.5 MG PO DAILY, #30 TAB 07/19/16 Memantine* (Namenda*) Unknown Strength Tablet, PO DAILY, #30 TAB 03/26/16 Mirtazapine* (Mirtazapine*) 7.5 Mg Tablet, 7.5 MG GTB BID, TAB 03/26/16 Insulin Glargine* (Lantus*) 100 Unit/Ml Soln, 6 UNITS SC QHS Y for ELEVATED GLUCOSE, #1 VIAL 03/26/16 Insulin Aspart* (Novolog Insulin Vial*) 100 U/Ml Vial, 0 SC SLIDING SCALE AC, VIAL 09/22/15 Carvedilol* (Carvedilol*) 3.125 Mg Tablet, 3.125 MG GTB BID, TAB 09/22/15 Buspirone Hcl* (Buspar*) 5 Mg Tab, 5 MG GTB BID, TAB 09/22/15 Multivit &Minerals/Ferrous Fum (MULTIVITAMIN LIQUID) 9 Mg/15 Ml Liquid, 30 ML GTB DAILY 06/13/15 Venlafaxine Hcl* (Venlafaxine Hcl ER*) 75 Mg Cap.er.24h, 75 MG GTB BID, CAP 06/13/15 Levothyroxine Sodium* (Synthroid*) 75 Mcg Tablet, 75 MCG GTB DAILY, TAB 05/01/15 Gabapentin* (Neurontin*) 100 Mg Capsule, 100 MG GTB TID, CAP 05/01/15 Allergies Allergies: Coded Allergies: No Known Drug Allergies (Verified Allergy, Mild, 07/19/16) PMhx/Soc History of Surgery: Yes (gallbladder, hemorroids, G TUBE, RT HIP ) Anesthesia Reaction: No Hx Neurological Disorder: Yes (dementia) Hx Respiratory Disorders: No Hx Cardiac Disorders: Yes (CHF ) Hx Psychiatric Problems: Yes (anxiety) Hx Miscellaneous Medical Probl: Yes (DM ) Hx Alcohol Use: No Hx Substance Use: No Hx Tobacco Use: No Smoking Status: Unknown if ever smoked Physical Exam Vitals Vital Signs Date Time Temp Pulse Resp B/P Pulse Ox O2 Delivery O2 Flow Rate FiO2 08/28/17 00:10 98.6 67 16 132/60 94 08/27/17 23:47 99.1 71 20 105/51 94 Room Air Physical Exam Const: [] Head: Atraumatic Eyes: Normal Conjunctiva ENT: Normal External Ears, Nose and Mouth. Neck: Full range of motion..~ No meningismus. Resp: Clear to auscultation bilaterally Cardio: Regular rate and rhythm, no murmurs Abd: Soft, non tender, non distended. Normal bowel sounds Skin: No petechiae or rashes Back: No midline or flank tenderness Ext: No cyanosis, or edema Neur: Awake and alert Psych: Normal Mood and Affect Result Diagram: 08/28/17608/28/176 Results 24 hrs Laboratory Tests Test 08/27/17 23:42 08/28/17 00:07 Bedside Glucose 308mg/dL White Blood Count 6.710^3/ul Red Blood Count 2.8810^6/ul Hemoglobin 9.0g/dl Hematocrit 28.0% Mean Corpuscular Volume 97.2fl Mean Corpuscular Hemoglobin 31.3pg Mean Corpuscular Hemoglobin Concent 32.1g/dl Red Cell Distribution Width 13.5% Platelet Count 77947^3/UL Mean Platelet Volume 12.1fl Neutrophils % 62.1% Lymphocytes % 22.9% Monocytes % 8.9% Eosinophils % 4.9% Basophils % 0.6% Nucleated Red Blood Cells % 0.0/100WBC Neutrophils # 4.210^3/ul Lymphocytes # 1.510^3/ul Monocytes # 0.610^3/ul Eosinophils # 0.310^3/ul Basophils # 0.010^3/ul Nucleated Red Blood Cells # 0.010^3/ul Sodium Level 141mmol/L Potassium Level 4.1mmol/L Chloride Level 106mmol/L Carbon Dioxide Level 27mmol/L Anion Gap 12 Blood Urea Nitrogen 37mg/dl Creatinine 1.26mg/dl Glucose Level 262mg/dl Calcium Level 9.3mg/dl Total Bilirubin 0.2mg/dl Direct Bilirubin 0.00mg/dl Indirect Bilirubin 0.2mg/dl Aspartate Amino Transf (AST/SGOT) 19IU/L Alanine Aminotransferase (ALT/SGPT) 23IU/L Alkaline Phosphatase 87IU/L Total Protein 7.2g/dl Albumin 3.5g/dl Globulin 3.70g/dl Albumin/Globulin Ratio 0.94 Lipase 99U/L Procedures/MDM Very pleasant patient here with possible wrong insulin. Patient fed and hydrated here. Blood work checked. No evidence of hypoglycemia. Patient will be discharged home. Departure Diagnosis: Primary Impression: Acute drug overdose Encounter type: initial encounter Injury intent: accidental or unintentional Qualified Code: T50.901A - Acute drug overdose, accidental or unintentional, initial encounter Condition: Stable Patient Instructions: Normal Exam, (Child) (Adult) Referrals: SALUD GARCIA MD (PCP) NATALIIA SAMSON Aug 28, 2017 01:34
[2017-08-28 01:52] VITALS: BP 117/51; PULSE 65; RESP 17
== END 2017-08-28 01:52 | disposition home or self-care (01) ==
LOC: E/R 23:38
DX: T50.901A Poisoning by unspecified drugs, medicaments and biological substances, accidental (unintentional), initial encounter (principal); E11.9 Type 2 diabetes mellitus without complications; I50.9 Heart failure, unspecified; Z79.4 Long term (current) use of insulin
CPT/HCPCS: 36415; 80053; 82962; 83690; 85025; 99283

== ENCOUNTER 2018-03-12 16:03 | Emergency (ER) | END 2018-03-12 21:19 | disposition home or self-care (01) ==

== ENCOUNTER 2019-06-24 10:16 | Emergency (ER) | payer MEDICARE, OTHER ==
[~2019-06-24] VITALS: Wt 61.4 kg
[~2019-06-24 10:16] MED LIST changes: +ATOR20TA38 G-TUBE; +AZIT250T PO; +BACITUD TOP; +BENZ-6 PO; +BUSP10TA2 G-TUBE; +CLIN300C10 PO; +GABA300C16 G-TUBE; +INSU100C SQ; +LEVO25TA6 GTB; +LEVO75TA84 GTB; +LINA145C G-TUBE; +MEMA28CA GTB; +POLY-VI-SOL WIT50 ML G-TUBE; +QUET100T32 G-TUBE; -SYN75 GTB; +TRAM50TA G-TUBE; +VENL75TA G-TUBE
[2019-06-24 10:20] VITALS: BP 157/67; PULSE 93; RESP 20; Wt 61.4 kg
[2019-06-24] MEDS ORDERED: AZITHROMYCIN 500 MG TAB PO ONE (11:00)
== END 2019-06-24 12:50 | disposition home or self-care (01) ==
LOC: E/R 10:16
DX: J18.9 Pneumonia, unspecified organism (principal); E11.9 Type 2 diabetes mellitus without complications; I50.9 Heart failure, unspecified; Z79.4 Long term (current) use of insulin
CPT/HCPCS: 71045

== ENCOUNTER 2019-06-30 19:08 | Emergency (ER) | payer MEDICARE, OTHER ==
[~2019-06-30] VITALS: Ht 157.5 cm; Wt 62.7 kg
[2019-06-30 19:12] VITALS: BP 118/57; PULSE 59; RESP 16; Ht 157.5 cm; Wt 62.7 kg
== END 2019-07-01 | disposition home or self-care (01) ==
LOC: E/R 19:08
DX: K94.23 Gastrostomy malfunction (principal); E11.9 Type 2 diabetes mellitus without complications; I50.9 Heart failure, unspecified; Z79.4 Long term (current) use of insulin
CPT/HCPCS: 74018